=== PATIENT | female | born 1950 | race Caucasian/White ===

== ENCOUNTER 2022-06-07 00:44 | Emergency (ER) | payer MEDICARE, BC, SELFPAY ==
[2022-06-07 00:52] VITALS: BP 161/95; PULSE 90; RESP 16; TEMP 36.5; O2SAT 95
--- NOTE | 2022-06-07 01:22 | CRLHL7_ITS ---
For Patients: As a result of the Century Cures Act, medical imaging exams and procedure reports are released immediately into your electronic medical record. You may view this report before your referring provider. If you have questions, please contact your health care provider. INDICATION: Left lower quadrant pain. TECHNIQUE: CT abdomen and pelvis acquired with 83 cc Isovue 370 IV contrast. COMPARISON: None. FINDINGS: Lower chest: Unremarkable. Liver: Subcentimeter hypodense focus in the right hepatic lobe is too small to accurately characterize but statistically likely a cyst or hemangioma. Gallbladder and bile ducts: Unremarkable. No stones or inflammation. No biliary ductal dilatation. Spleen: Unremarkable. Normal in size. No masses. Adrenal glands: 1.3 cm left adrenal nodule. Right adrenal gland is unremarkable. Pancreas: Unremarkable. No mass or inflammation. Kidneys: Subcentimeter hypodense foci are too small to accurately characterize but statistically likely cysts. No radiopaque stones or hydronephrosis. GI tract: Normal in caliber. Diverticulosis without evidence of diverticulitis. Appendix is not well visualized, however there is no evidence of right lower quadrant inflammatory stranding. Lymph nodes: No lymphadenopathy. Vasculature: Scattered atherosclerotic calcifications. Omentum/Peritoneum/Abdominal Wall: Unremarkable. No sign of mass or infiltration. No free air or significant free fluid. Pelvis: Status post hysterectomy. Bones: Unremarkable for age. IMPRESSION: 1. No acute abdominal or pelvic abnormality. 2. Diverticulosis without evidence of diverticulitis. 3. 1.3 cm left adrenal nodule, indeterminate. Recommend comparison with outside prior studies if available. Otherwise consider further characterization with CT/MRI abdomen adrenal mass protocol on an outpatient basis. Please note that all CT scans at this facility use dose modulation, iterative reconstruction, and/or weight-based dosing when appropriate to reduce radiation dose to as low as reasonably achievable. Dictated by Miki Harp MD @ 06/07/2022 2:53:03 AM (Electronically Signed)
[2022-06-07] MEDS: OXYCODONE 5 MG TABLET 10 MG PO (01:39)
[2022-06-07 01:44] LABS: Basophils Percent Auto 0.3 % (0.0-3.0); Eosinophils Percent Auto 1.7 % (0.0-7.0); Hematocrit 47.4 % (33.0-51.0); Hemoglobin* 15.6 gm/dL (12.0-16.0); Immature Granulocytes Pct Auto 0.3 %; Lymphocytes Percent Auto 24.6 % (20-44); Mean Corpuscular HGB Conc 33 gm/dL (32-36); Mean Corpuscular Hemoglobin 31 pg (26-34); Mean Corpuscular Volume 94 fL (80-100); Monocytes Percent Auto 10.7 % (0.0-11.0); Neutrophils Percent Auto 62.4 % (42.0-72.0); Platelet Count* 254 K/uL (140-440); RDW Coefficient of Variation % 13.6 % (11.5-15.5); Red Blood Count 5.06 m/uL (4.00-5.20); White Blood Count* 11.75 K/uL (4.50-11.00)
[2022-06-07 01:45] LABS: Slide Review Reflex No
[2022-06-07 01:45] LABS: Appearance Urine Clear (Clear); Bilirubin Urine Negative (Negative); Blood Urine 2+ (Negative); Color Urine Yellow (Yellow); Glucose Urine Negative (Negative); Ketones Urine Negative (Negative); Leukocyte Esterase Urine Negative (Negative); Nitrite Urine Negative (Negative); Protein Urine Negative (Negative); Specific Gravity Urine 1.025 (1.000-1.030); Urobilinogen Urine 0.2 (0.2-1.0); pH Urine 5.5 (5.0-8.5)
[2022-06-07 01:57] LABS: Albumin* 4.1 g/dL (3.3-5.0); Chloride* 102 mmol/L (96-114); Sodium* 136 mmol/L (135-149)
[2022-06-07 01:58] LABS: Potassium* 4.1 mmol/L (3.6-5.1)
[2022-06-07 01:59] LABS: INR 2.79 (0.91-1.10); Prothrombin Time 30.7 Seconds
[2022-06-07 02:00] LABS: Aspartate Amino Transferase* 27 U/L (12-35); Bilirubin Total* 0.3 mg/dL (0.1-1.5); Carbon Dioxide* 28 mmol/L (20-32); Creatinine* 0.4 mg/dL (0.5-1.5); Estimated Glomerular Filt Rate 106 ml/min; Total Protein* 7.6 g/dL (6.0-8.3)
[2022-06-07 02:01] LABS: Alanine Aminotransferase* 24 U/L (4-35); Alkaline Phosphatase* 78 U/L (40-150); Blood Urea Nitrogen* 14 mg/dL (7-30); Calcium* 9.3 mg/dL (8.4-10.6); Glucose* 128 mg/dL (60-115)
[2022-06-07 02:03] LABS: Bacteria Urine Few; Squamous Epithelial Cell Urine Few (None-Few); WBC Urine 0-2 (0-5)
[2022-06-07 02:03] LABS: C Reactive Protein* 0.5 mg/dL (0.5-1.0)
--- NOTE | 2022-06-07 02:17 | ED.GENADULT ---
HPI - General Adult General Chief complaint: Abdominal Pain Stated complaint: L hip pain Time Seen by Provider: 06/07/22 01:10 Source: patient and family Mode of arrival: ambulatory Limitations: no limitations History of Present Illness HPI narrative: 71-year-old female presents to the emergency department with family reporting left lateral upper hip pain/left lower quadrant abdominal pain for the past couple of days, worsening tonight, unable to sleep. Last bowel movement was a day and half ago was normal, no blood in her stools. There is no fever, no trauma or injury. Denies a history of similar pain. Reports her last colonoscopy was 2 years ago, few polyps were removed. On specific questioning she confirms that she thinks she was diagnosed with diverticulitis about 3-4 years ago through clinical exam though it does not sound as though his CT scan was performed. This was done through [facility] and I do not have access to those records tonight. There has been no blood in her stools, appetite has been normal. No dysuria or gynecological changes. She is status post hysterectomy. Reports that she last took some Tylenol at about 9:00 p.m. and tried a Salonpas patch yesterday with no significant improvement in symptoms. Pain is dull and achy and constant, not worse with any particular movements or activities. Does not seem associated with food or urination. Past medical history notable for hypertension, COPD, AFib. She continues to smoke, denies any recent alcohol intake or illicit drug use. States that her home medications are Coumadin, atorvastatin, bisoprolol, Symbicort and diltiazem. Surgical history notable for prior oophorectomy of 1 ovary and a hysterectomy. ROS is notable for the generalized in GI symptoms as above, otherwise denies times 12 systems. Related Data Home Medications Medication Instructions Recorded Confirmed albuterol sulfate 90 mcg/actuation 2 puff inhalation Q4H PRN wheezing 06/07/22 06/07/22 aerosol inhaler atorvastatin 40 mg tablet 40 mg PO QPM 06/07/22 06/07/22 atorvastatin 80 mg tablet 80 mg PO QPM 06/07/22 06/07/22 bisoprolol fumarate 5 mg tablet 2.5 mg PO DAILY 06/07/22 06/07/22 budesonide-formoterol HFA 160 2 puff inhalation BID 06/07/22 06/07/22 mcg-4.5 mcg/actuation aerosol inhaler (Symbicort) diltiazem HCl 240 mg 240 mg PO DAILY 06/07/22 06/07/22 capsule,extended release 24 hr warfarin 5 mg tablet mg PO 06/07/22 Previous Rx's Medication Instructions Recorded ciprofloxacin HCl 500 mg tablet 500 mg PO BID #20 tabs 06/07/22 (Cipro) metronidazole 500 mg tablet 500 mg PO Q12H #20 tabs 06/07/22 Allergies Allergy/AdvReac Type Severity Reaction Status Date / Time No Known Drug Allergies Allergy Verified 06/07/22 02:24 Exam Const: Vital Signs, click to edit/add: Vital Signs - 24 hr 06/07/22 00:52 Temperature 97.7 F Pulse Rate [Left P ulse Oximeter] 90 Respiratory Rate 16 Blood Pressure [Ri ght Upper Arm] 161/95 H Pulse Oximetry 95 Oxygen Delivery Me thod Room Air Common normals: no apparent distress Exam limitations: altered mental status General appearance: cooperative and well kempt Other: Good historian except for recall of her medications. Friendly and cooperative. Family smuggled a tiny [employer] Terrier in with them and he is a delight. HENMT: Common normals: normocephalic Head and scalp: normocephalic Face and sinus: normal facial exam Mouth: oral and palatal mucosa normal Throat: posterior oropharynx normal Eye: Common normals: conjunctivae normal General eye: normal appearance of both eyes Conjunctiva: conjunctiva(e) normal Neck & C-Spine: Common normals: full ROM and no lymphadenopathy Resp: Common normals: normal respiratory effort, no use of accessory muscles and clear to auscultation bilaterally Effort & inspection: able to speak in complete sentences Auscultation: clear to auscultation bilaterally Cardio: Common normals: regular rate, regular rhythm, S1 normal heart sound, S2 normal heart sound and no murmurs Rate: regular rate Rhythm: regular rhythm Heart sounds: S1 normal and S2 normal GI: Other: Abdomen mildly tender to palpation of left lower quadrant only. No rebound tenderness or guarding. Seems pretty stoic. Bowel sounds are normoactive, nondistended. Liver and spleen are not enlarged. No obvious mass. Extremity: Common normals: normal to inspection, full ROM (Of left hip. Normal internal and external rotation with no point bony tend) and no pedal edema Neuro: Speech: speech normal Motor exam: strength 5/5 throughout, no tremor noted and no movement abnormalities noted Psych: Appearance: well kempt Attitude: engaged Insight: insight good Judgement: judgment good Skin: Common normals: no rashes or lesions noted General skin exam: no rashes or lesions noted Course Vital Signs Vital signs: Initial Vital Signs Temperature 97.7 F 06/07/22 00:52 Temperature Source Temporal Artery Scan 06/07/22 00:52 Pulse Rate 90 06/07/22 00:52 Pulse Rhythm Regular 06/07/22 00:52 Respiratory Rate 16 06/07/22 00:52 Blood Pressure 161/95 H 06/07/22 00:52 Blood Pressure Mean 117 06/07/22 00:52 Blood Pressure Position Semi-Fowlers 06/07/22 00:52 Pulse Oximetry 95 06/07/22 00:52 Oxygen Delivery Method Room Air 06/07/22 00:52 Vital Signs Temperature 97.7 F 06/07/22 00:52 Pulse Rate 90 06/07/22 00:52 Respiratory Rate 16 06/07/22 00:52 Blood Pressure 161/95 H 06/07/22 00:52 Pulse Oximetry 95 06/07/22 00:52 Oxygen Delivery Method Room Air 06/07/22 00:52 Temperature 97.7 F 06/07/22 00:52 Pulse Rate 90 06/07/22 00:52 Respiratory Rate 16 06/07/22 00:52 Blood Pressure 161/95 H 06/07/22 00:52 Pulse Oximetry 95 06/07/22 00:52 Oxygen Delivery Method Room Air 06/07/22 00:52 Medical Decision Making MDM Narrative Medical decision making narrative: Differential diagnosis includes musculoskeletal etiology, gynecological problem, colitis, more likely diverticulitis. Recommend CT scan of the abdomen and pelvis, urinalysis, basic labs. Oral oxycodone and reassessment. Update: Labs showing mild infection, therapeutic INR. CT does not show any hemorrhage or hematoma does show diverticulosis per my impression I suspect there is some mild diverticulitis as well. No evidence of stones. Cannot exclude appendicitis though this is not well seen. There is some inflammatory stranding on the right which does not fit with clinical correlation in may be more related to the diverticulitis that I am seeing. Findings discussed with patient. She has marked improvement in her pain with the oxycodone. Labs and CT reviewed with her. She is agreeable to starting antibiotics and watchful waiting. Will start ciprofloxacin and metronidazole, 1st dose given in ED. alarm symptoms reviewed that would warrant repeat ED presentation, mainly focusing on risk of perforation. Counseled that both of the antibiotics will raise her INR and INR were needs to be rechecked in a couple of days with likely adjustments in dosing. She verbalizes understanding and agreement. Lab Data Lab results reviewed: Yes I reviewed the patient's lab results Labs: Lab Results 06/07/22 06/07/22 Range/Units 01:30 01:34 WBC 11.75 H (4.50-11.00) K/uL RBC 5.06 (4.00-5.20) m/uL Hgb 15.6 (12.0-16.0) gm/dL Hct 47.4 (33.0-51.0) % MCV 94 (80-100) fL MCH 31 (26-34) pg MCHC 33 (32-36) gm/dL RDW Coeff of Volodymyr 13.6 (11.5-15.5) % Plt Count 254 (140-440) K/uL Neut % (Auto) 62.4 (42.0-72.0) % Lymph % (Auto) 24.6 (20-44) % [place] % (Auto) 10.7 (0.0-11.0) % Eos % (Auto) 1.7 (0.0-7.0) % Baso % (Auto) 0.3 (0.0-3.0) % Neut # (Auto) 7.30 H (1.7-7.0) K/uL Lymph # (Auto) 2.90 (0.90-2.90) K/uL [place] # (Auto) 1.30 H (0.00-0.90) K/UL Eos # (Auto) 0.20 (0.00-0.50) K/uL Baso # (Auto) 0.00 (0.00-0.30) K/uL INR 2.79 H (0.91-1.10) Sodium 136 (135-149) mmol/L Potassium 4.1 (3.6-5.1) mmol/L Chloride 102 (96-114) mmol/L Carbon Dioxide 28 (20-32) mmol/L BUN 14 (7-30) mg/dL Creatinine 0.4 L (0.5-1.5) mg/dL Estimated GFR 106 ml/min Glucose 128 H (60-115) mg/dL Calcium 9.3 (8.4-10.6) mg/dL Total Bilirubin 0.3 (0.1-1.5) mg/dL AST 27 (12-35) U/L ALT 24 (4-35) U/L Alkaline Phosphatase 78 (40-150) U/L C-Reactive Protein 0.5 (0.5-1.0) mg/dL Total Protein 7.6 (6.0-8.3) g/dL Albumin 4.1 (3.3-5.0) g/dL Urine Color Yellow (Yellow) Urine Appearance Clear (Clear) Urine pH 5.5 (5.0-8.5) Ur Specific Reading 1.025 (1.000-1.030) Urine Protein Negative (Negative) Urine Glucose (UA) Negative (Negative) Urine Ketones Negative (Negative) Urine Blood 2+ A (Negative) Urine Nitrite Negative (Negative) Urine Bilirubin Negative (Negative) Urine Urobilinogen 0.2 (0.2-1.0) Ur Leukocyte Esterase Negative (Negative) Urine RBC 10-25 A (0-2) Urine WBC 0-2 (0-5) Ur Squamous Epith Cells Few (None-Few) Urine Bacteria Few A (None) Imaging Data CT scan - pelvis: Attestation: I have reviewed the pertinent imaging results. My impression: Looks actually more like diverticulitis than just diverticulosis to me but subtle. Radiology noting diverticulosis only as below. Radiologist's impression: IMPRESSION: 1. No acute abdominal or pelvic abnormality. 2. Diverticulosis without evidence of diverticulitis. 3. 1.3 cm left adrenal nodule, indeterminate. Recommend comparison with outside prior studies if available. Otherwise consider further characterization with CT/MRI abdomen adrenal mass protocol on an outpatient basis. Discharge Plan Discharge Clinical Impression: Diverticulitis Patient Disposition: Home w/ Parent or Adult Condition: Improved Instructions: Diverticulitis (DC) Additional Instructions: As we discussed, your CT is borderline for diverticulitis. Blood work shows some mild infection and inflammation. There are no other obvious findings, I suspect that this is the etiology. There are no obvious signs of perforation or significant complication with her diverticulitis. We are safe to start some antibiotics and see how things go. Your INR today is 2.7. Both of these antibiotics run a risk of making your INR go up. I would like for you to have your INR recheck on Saturday or Saturday at the latest. I have started you on 2 antibiotics that you will take twice daily each. You may take them at the same time. Do not drink alcohol on these medications. For pain, begin with Tylenol 1000 mg every 6 hours. I have given you a small supply of oxycodone to use if the pain is severe, I am hoping the only need this at night. If your pain is not improving markedly by Saturday, make a follow-up appointment with her primary care provider. As we discussed, if you start having high fevers, severe weakness or symptoms are significantly worse, come back to the emergency department, this may be a sign of perforation. Activity Level: No Restrictions Discharge Diet: Regular Prescriptions: New metronidazole 500 mg tablet 500 mg PO Q12H Qty: 20 0RF ciprofloxacin HCl [Cipro] 500 mg tablet 500 mg PO BID Qty: 20 0RF No Action atorvastatin 40 mg tablet 40 mg PO QPM atorvastatin 80 mg tablet 80 mg PO QPM diltiazem HCl 240 mg capsule,extended release 24hr 240 mg PO DAILY bisoprolol fumarate 5 mg tablet 2.5 mg PO DAILY warfarin 5 mg tablet PO albuterol sulfate 90 mcg/actuation HFA aerosol inhaler 2 puff INHALATION Q4H PRN (Reason: wheezing) budesonide-formoterol [Symbicort] 160-4.5 mcg/actuation HFA aerosol inhaler 2 puff INHALATION BID Follow Up/Referrals: Marry Cobb MD [Primary Care Provider] - Stand Alone Forms: [facility] Info Instructions
[2022-06-07] MEDS: CIPROFLOXACIN 500 MG TABLET PO (03:08)
[2022-06-07] MEDS: metroNIDAZOLE 500 MG TABLET PO (03:08)
[2022-06-07 03:19] VITALS: BP 156/72; PULSE 72; RESP 18; O2SAT 95
== END 2022-06-07 03:21 | disposition home or self-care (01) ==
PROVIDERS: Emergency Provider Family Medicine; PCP Family Medicine
DX: K57.92 Diverticulitis of intestine, part unspecified, without perforation or abscess without bleeding (principal)
CPT/HCPCS: 36415; 74177; 80053; 81003; 81015; 85025; 85610; 86140; 87086; 99283; 99284; A9270; Q9967

== ENCOUNTER 2022-12-19 09:29 | Emergency (ER) | payer MEDICARE, BC, SELFPAY ==
[2022-12-19] VITALS (7 sets, daily range): BP systolic 128–143; BP diastolic 68–81; PULSE 84–98; RESP 22–25; TEMP 36.6; O2SAT 87–91; BMI 29.8
--- NOTE | 2022-12-19 10:09 | CRLHL7_ITS ---
For Patients: As a result of the Century Cures Act, medical imaging exams and procedure reports are released immediately into your electronic medical record. You may view this report before your referring provider. If you have questions, please contact your health care provider. Indication: Cough Technique: Chest 1 view Comparison: Chest x-ray 12/10/2019 Findings/Impression: Cardiovascular and mediastinum: Normal heart size with atherosclerotic calcification. Lungs and pleural space: No pleural effusion or pneumothorax. No focal consolidation. Bilateral bronchial wall thickening which can be seen in bronchitis or reactive airways disease. Bones and soft tissues: No acute findings. Dictated by Crow Kaplan MD @ 12/19/2022 10:42:23 AM (Electronically Signed)
--- NOTE | 2022-12-19 10:13 | ED.GENADULT ---
HPI - General Adult General Time Seen by Provider: 10:13 Date Seen: 12/19/22 Chief complaint: Shortness of Breath/Dyspnea Stated complaint: hard to breathe Time Seen by Provider: 12/19/22 10:00 Source: patient Mode of arrival: ambulatory Limitations: no limitations History of Present Illness HPI narrative: Patient is a 72-year-old female with COPD, who has not been able to get her Symbicort inhaler for the last month. She feels like over the last few days she has gotten worse with her breathing. She does not have home oxygen, she does use albuterol inhaler at home. She has not had any chest pain. She has not had any leg swelling or edema. She does take Coumadin as she had atrial fibrillation in the past with hospitalization. No leg swelling or edema. She has had a slight productive cough. O2 sat on presentation 89-90%. On room air. Related Data Home Medications Medication Instructions Recorded Confirmed albuterol sulfate 90 mcg/actuation 2 puff inhalation Q4H PRN wheezing 06/07/22 12/19/22 aerosol inhaler atorvastatin 40 mg tablet 40 mg PO QPM 06/07/22 12/19/22 atorvastatin 80 mg tablet 80 mg PO QPM 06/07/22 12/19/22 bisoprolol fumarate 5 mg tablet 2.5 mg PO DAILY 06/07/22 06/07/22 budesonide-formoterol HFA 160 2 puff inhalation BID 06/07/22 12/19/22 mcg-4.5 mcg/actuation aerosol inhaler (Symbicort) diltiazem HCl 240 mg 240 mg PO DAILY 06/07/22 12/19/22 capsule,extended release 24 hr warfarin 5 mg tablet mg PO 06/07/22 Previous Rx's Medication Instructions Recorded ciprofloxacin HCl 500 mg tablet 500 mg PO BID #20 tabs 06/07/22 (Cipro) metronidazole 500 mg tablet 500 mg PO Q12H #20 tabs 06/07/22 doxycycline hyclate 100 mg capsule 100 mg PO BID 7 days #14 caps 12/19/22 prednisone 20 mg tablet 20 mg PO BID #10 tabs 12/19/22 Allergies Allergy/AdvReac Type Severity Reaction Status Date / Time No Known Drug Allergies Allergy Verified 06/07/22 02:24 Review of Systems Status of ROS: Reports: 10 or more systems reviewed and unremarkable except as noted in History and below [facility] Social History Smoking Status: Current every day smoker What tobacco products do you use: cigarettes Smoking packs per day: 1 Smoking cigarettes per day: 20.0 Years smoked: 60 Smoking pack-years: 60.00 Do you use any of these nicotine containing products: None Second hand tobacco smoke exposure: Yes How often do you have a drink containing alcohol: monthly or less How many standard drinks containing alcohol do you have on a typical day: 1 or 2 How often do you have six or more drinks on one occasion: Never AUDIT-C Alcohol total score: 1 Non-prescribed substance use: denies use service: No Exam Narrative: Exam Narrative: Objective: Patient's O2 sat is 87% on presentation up to 90% on a regular basis when interviewed Afebrile Other vital signs are within normal limits Alert orient x3, noncyanotic HEENT is unremarkable Neck is supple Chest wheezes at the bases bilaterally and diminished air exchange. No rales noted Heart rhythm regular 2/6 systolic murmur occasional ectopic beat noted Extremities are no edema neurologic nonfocal , no peripheral edema Const: Vital Signs, click to edit/add: Vital Signs - 24 hr 12/19/22 09:48 12/19/22 10:08 12/19/22 10:30 Temperature 97.8 F Pulse Rate [Right Pulse Oximeter] 84 84 Respiratory Rate 22 22 Blood Pressure [Ri ght Upper Arm] 138/74 128/70 Pulse Oximetry 87 L 90 90 Oxygen Delivery Me thod Room Air Room Air 12/19/22 11:00 12/19/22 11:30 12/19/22 12:00 Temperature Pulse Rate [Right Pulse Oximeter] 86 87 98 Respiratory Rate 24 25 H 24 Blood Pressure [Ri ght Upper Arm] 134/74 129/68 143/81 H Pulse Oximetry 91 91 87 L Oxygen Delivery Me thod Room Air Room Air Room Air 12/19/22 12:30 Temperature Pulse Rate [Right Pulse Oximeter] 92 Respiratory Rate 24 Blood Pressure [Ri ght Upper Arm] 137/76 Pulse Oximetry 88 Oxygen Delivery Me thod Room Air Course Vital Signs Vital signs: Initial Vital Signs Temperature 97.8 F 12/19/22 09:48 Temperature Source Temporal Artery Scan 12/19/22 09:48 Pulse Rate 84 12/19/22 09:48 Respiratory Rate 22 12/19/22 09:48 Blood Pressure 138/74 12/19/22 09:48 Blood Pressure Mean 95 12/19/22 09:48 Blood Pressure Position Sitting 12/19/22 09:48 Pulse Oximetry 87 L 12/19/22 09:48 Oxygen Delivery Method Room Air 12/19/22 09:48 Vital Signs Temperature 97.8 F 12/19/22 09:48 Pulse Rate 84 12/19/22 09:48 Respiratory Rate 22 12/19/22 09:48 Blood Pressure 138/74 12/19/22 09:48 Pulse Oximetry 87 L 12/19/22 09:48 Oxygen Delivery Method Room Air 12/19/22 09:48 Temperature 97.8 F 12/19/22 09:48 Pulse Rate 92 12/19/22 12:30 Respiratory Rate 24 12/19/22 12:30 Blood Pressure 137/76 12/19/22 12:30 Pulse Oximetry 88 12/19/22 12:30 Oxygen Delivery Method Room Air 12/19/22 12:30 Medical Decision Making MDM Narrative Medical decision making narrative: 72-year-old female with COPD has been out of her Symbicort for a about a month and has gotten worse over the last couple of days with slight cough breathing difficulty. She has no history of cardiac issues other than AFib. Will check EKG, point of care troponin, will get a chest x-ray, rule out COPD exacerbation. Patient will be given a DuoNeb, and IV Solu-Medrol and doxycycline. Will likely continue steroids and doxycycline at home, will see observe her in the ER per period of time make sure her O2 sat is adequate. She does not at this time have a home O2 sat monitor. Addendum 12:22 p.m. the patient continued on O2 sats between 89 and 91%, she feels better after nebulizer. She got steroids, antibiotic. I think it is reasonable to lower to go home and see how she does. I would recommend she continue her albuterol inhaler, I would prescribe prednisone for her that she can start today as well as doxycycline. She should follow up with regular doctor next 2-3 days for reassessment certainly sooner changes or concerns. She should be off work until she sees her regular physician. Lab Data Labs: Lab Results 12/19/22 12/19/22 Range/Units 10:30 10:40 WBC 9.58 (4.50-11.00) K/uL RBC 4.78 (4.00-5.20) m/uL Hgb 14.4 (12.0-16.0) gm/dL Hct 44.7 (33.0-51.0) % MCV 94 (80-100) fL MCH 30 (26-34) pg MCHC 32 (32-36) gm/dL RDW Coeff of Volodymyr 14.5 (11.5-15.5) % Plt Count 214 (140-440) K/uL Neut % (Auto) 70.8 (42.0-72.0) % Lymph % (Auto) 11.2 L (20-44) % [place] % (Auto) 16.4 H (0.0-11.0) % Eos % (Auto) 1.1 (0.0-7.0) % Baso % (Auto) 0.3 (0.0-3.0) % Neut # (Auto) 6.78 (1.7-7.0) K/uL Lymph # (Auto) 1.10 (0.90-2.90) K/uL [place] # (Auto) 1.60 H (0.00-0.90) K/UL Eos # (Auto) 0.11 (0.00-0.50) K/uL Baso # (Auto) 0.03 (0.00-0.30) K/uL Abs Immat Gran (auto) 0.02 (0.00-0.30) K/uL Imm/Tot Granulo (auto) 0.2 % VBG pH 7.415 (7.32-7.43) VBG pCO2 46 (40-50) mmHG VBG pO2 95.9 H (25-47) mmHG VBG HCO3 29 H (21-28) mmol/L Sodium 133 L (135-149) mmol/L Potassium 4.3 (3.6-5.1) mmol/L Chloride 100 (96-114) mmol/L Carbon Dioxide 28 (20-32) mmol/L Anion Gap 5 L (7-15) mEq/L BUN 11 (7-30) mg/dL Creatinine 0.4 L (0.5-1.5) mg/dL Estimated Creat Clear 42.07 Estimated GFR 105 ml/min Glucose 108 (60-115) mg/dL Lactate 0.9 (0.5-1.9) mmol/L Calcium 8.8 (8.4-10.6) mg/dL Total Bilirubin 0.6 (0.1-1.5) mg/dL Direct Bilirubin 0.0 (0.0-0.5) mg/dL AST 26 (12-35) U/L ALT 17 (4-35) U/L Alkaline Phosphatase 76 (40-150) U/L C-Reactive Protein 5.7 H (0.5-1.0) mg/dL NT-Pro-B Natriuret Pep 1190 pg/mL Total Protein 6.9 (6.0-8.3) g/dL Albumin 3.7 (3.3-5.0) g/dL SARS-CoV-2 (PCR) Negative SARS-CoV-2 (Negative) Influenza Type A (PCR) Negative PCR FLU A (Negative) Influenza Type B (PCR) Negative PCR FLU B (Negative) RSV (PCR) Negative PCR RSV (Negative) POC Troponin I 0.01 (0.01-0.04) ng/ml Discharge Plan Discharge Clinical Impression: Asthma with acute exacerbation Patient Disposition: Home w/ Parent or Adult Condition: Improved Additional Instructions: Rest, fluids, off work until you see your regular doctor in 3-5 days. Antibiotic and steroids to start today. Return if problems or concerns or worsening. Recommend to get a home oximeter as well and return if you are running below 88%. Activity Level: Light activity Discharge Diet: Regular Prescriptions: New prednisone 20 mg tablet 20 mg PO BID Qty: 10 0RF doxycycline hyclate 100 mg capsule 100 mg PO BID 7 Days Qty: 14 0RF No Action atorvastatin 40 mg tablet 40 mg PO QPM atorvastatin 80 mg tablet 80 mg PO QPM diltiazem HCl 240 mg capsule,extended release 24hr 240 mg PO DAILY bisoprolol fumarate 5 mg tablet 2.5 mg PO DAILY warfarin 5 mg tablet PO albuterol sulfate 90 mcg/actuation HFA aerosol inhaler 2 puff INHALATION Q4H PRN (Reason: wheezing) budesonide-formoterol [Symbicort] 160-4.5 mcg/actuation HFA aerosol inhaler 2 puff INHALATION BID metronidazole 500 mg tablet 500 mg PO Q12H Qty: 20 0RF ciprofloxacin HCl [Cipro] 500 mg tablet 500 mg PO BID Qty: 20 0RF Follow Up/Referrals: Marry Cobb MD [Primary Care Provider] - Stand Alone Forms: [employer] Info Instructions
[2022-12-19] MEDS: DOXYCYCLINE HYCLATE 100 MG PO (10:33)
[2022-12-19] MEDS: IPRAT-ALBUT 0.5-2.5 MG/3 ML NEB 1 NEB IH (10:34)
[2022-12-19] MEDS: 0.9 % SODIUM CHLORIDE 500 ML 500 ML IV (10:41)
[2022-12-19] MEDS: METHYLPREDNISOLONE SOD SUCC 62.5 MG/ML (125) 125 MG IVP (10:45)
[2022-12-19 11:00] LABS: Basophils Absolute Auto 0.03 K/uL (0.00-0.30); Basophils Percent Auto 0.3 % (0.0-3.0); Eosinophils Absolute Auto 0.11 K/uL (0.00-0.50); Eosinophils Percent Auto 1.1 % (0.0-7.0); Hematocrit 44.7 % (33.0-51.0); Hemoglobin* 14.4 gm/dL (12.0-16.0); Immature Granulocytes Abs Auto 0.02 K/uL (0.00-0.30); Immature Granulocytes Pct Auto 0.2 %; Lymphocytes Percent Auto 11.2 % (20-44); Mean Corpuscular HGB Conc 32 gm/dL (32-36); Mean Corpuscular Hemoglobin 30 pg (26-34); Mean Corpuscular Volume 94 fL (80-100); Monocytes Percent Auto 16.4 % (0.0-11.0); Neutrophils Absolute Auto 6.78 K/uL (1.7-7.0); Neutrophils Percent Auto 70.8 % (42.0-72.0); Platelet Count* 214 K/uL (140-440); RDW Coefficient of Variation % 14.5 % (11.5-15.5); Red Blood Count 4.78 m/uL (4.00-5.20); White Blood Count* 9.58 K/uL (4.50-11.00)
[2022-12-19 11:04] LABS: HCO3 VBG 29 mmol/L (21-28); Lactate* 0.9 mmol/L (0.5-1.9); PCO2 VBG 46 mmHG (40-50); PO2 VBG 95.9 mmHG (25-47); pH VBG 7.415 (7.32-7.43)
[2022-12-19 11:12] LABS: Troponin, Point-of-Care* 0.01 ng/ml (0.01-0.04)
[2022-12-19 11:15] LABS: Slide Review Reflex No
[2022-12-19 11:16] LABS: Albumin* 3.7 g/dL (3.3-5.0); Chloride* 100 mmol/L (96-114)
[2022-12-19 11:17] LABS: Potassium* 4.3 mmol/L (3.6-5.1); Sodium* 133 mmol/L (135-149)
[2022-12-19 11:19] LABS: Alanine Aminotransferase* 17 U/L (4-35); Alkaline Phosphatase* 76 U/L (40-150); Aspartate Amino Transferase* 26 U/L (12-35); Bilirubin Total* 0.6 mg/dL (0.1-1.5); Creatinine* 0.4 mg/dL (0.5-1.5); Est. Creatinine Clearance* 42.07; Estimated Glomerular Filt Rate 105 ml/min; Total Protein* 6.9 g/dL (6.0-8.3)
[2022-12-19 11:20] LABS: Anion Gap 5 mEq/L (7-15); Blood Urea Nitrogen* 11 mg/dL (7-30); Carbon Dioxide* 28 mmol/L (20-32); Glucose* 108 mg/dL (60-115)
[2022-12-19 11:21] LABS: Calcium* 8.8 mg/dL (8.4-10.6)
[2022-12-19 11:23] LABS: C Reactive Protein* 5.7 mg/dL (0.5-1.0)
[2022-12-19 11:26] LABS: PCR FLU A Negative PCR FLU A (Negative); PCR FLU B Negative PCR FLU B (Negative); PCR RSV Negative PCR RSV (Negative)
[2022-12-19 11:28] LABS: NT Pro B Type NatriureticPept* 1190 pg/mL
[2022-12-19 11:30] LABS: SARS PCR* Negative SARS-CoV-2 (Negative)
== END 2022-12-19 12:36 | disposition home or self-care (01) ==
PROVIDERS: Emergency Provider Family Medicine; PCP Family Medicine
DX: J45.901 Unspecified asthma with (acute) exacerbation (principal)
CPT/HCPCS: 36415; 71045; 80048; 80076; 82803; 83605; 83880; 84484; 85025; 86140; 87631; 93005; 94640; 94761; 96374; 99284; 99285; A9270; J2930; J7120

== ENCOUNTER 2023-01-04 10:11 | Inpatient (IN) | payer MEDICARE, BC, SELFPAY ==
[2023-01-04] VITALS (51 sets, daily range): BP systolic 88–148; BP diastolic 58–93; PULSE 84–176; RESP 20–40; TEMP 36.5–36.7; O2SAT 86–94; BMI 30.1; BMI 31.4
--- NOTE | 2023-01-04 10:24 | ED.NURSE ---
Pt arrives satting at 86% on room air, feeling SOB. Pt placed on 2L O2 NC. O2 sats up to 93%, titrated down to 1L O2 NC.
--- NOTE | 2023-01-04 10:32 | ED_ITS ---
HPI - Arrhythmia/Palpitations General Time Seen by Provider: 10:32 Date Seen: 01/04/23 Chief Complaint: Arrhythmia/Palpitations Stated Complaint: Rapid heartrate Time Seen by Provider: 01/04/23 10:32 Source: patient and RN notes reviewed Mode of arrival: ambulatory Limitations: no limitations History of Present Illness HPI narrative: This 72-year-old female is referred from clinic with atrial fibrillation with RVR. Patient had a follow-up clinic appointment today, has noted increased shortness of breath and difficulty sleeping at night. Last night she states she really could not get comfortable or rest, were short of breath through the night. She notes that that has been a problem for the last 2 nights. Normally she has no lower extremity edema and has had a little bit recently. In clinic she was found to be in atrial fibrillation with RVR, EKG showing a rate of 165 beats per minute. She states she cannot feel this, does have a history of atrial fibrillation, is anticoagulated with Coumadin. She could not feel it when she was in it prior per report. I do not know if she has paroxysm Ali in atrial fibrillation or if it is chronic for her. She states she has been having problems with her COPD, they are working to get her home oxygen. Her relative that is with her, I presume possibly sister, states that her oxygen has been in the 80s at times, as low as 70s. She was 86% on arrival here. Looking in recent records, patient was here on 12/19/2022 with COPD/asthma exacerbation, did receive prednisone doxycycline. She had been out of her Symbicort for a month. She did have some mild hypoxia during that time. She still does not have home O2 at this time but they are working on it per report. She is having no chest pain, is not syncopal at all. She last ate last night. Have reviewed with her that some of her blood pressures since arrival have been lower in the systolic of 80s but as long as she is resting, seems to be asymptomatic. complaint: atrial fibrillation Arrhythmia history: on anti-coagulants Related Data Home Medications Medication Instructions Recorded Confirmed albuterol sulfate 90 mcg/actuation 2 puff inhalation Q4H PRN wheezing 06/07/22 01/04/23 aerosol inhaler atorvastatin 80 mg tablet 80 mg PO HS 06/07/22 01/04/23 bisoprolol fumarate 5 mg tablet 2.5 mg PO DAILY 06/07/22 01/04/23 diltiazem HCl 240 mg 240 mg PO DAILY 06/07/22 01/04/23 capsule,extended release 24 hr warfarin 5 mg tablet 5 mg PO .MO,TH 06/07/22 01/04/23 budesonide 1 mg/2 mL suspension 1 mg inhalation BID 01/04/23 01/04/23 for nebulization fluticasone 250 mcg-salmeterol 50 1 ea inhalation Q12H 01/04/23 01/04/23 mcg/dose blistr powdr for inhalation (Advair Diskus) gabapentin 300 mg capsule 300 mg PO 3XD 01/04/23 01/04/23 ipratropium 0.5 mg-albuterol 3 mg 3 ml inhalation QID 01/04/23 01/04/23 (2.5 mg base)/3 mL nebulization soln warfarin 2.5 mg tablet 2.5 mg PO .VERA,TU,WE,FR,SA 01/04/23 01/04/23 Allergies Allergy/AdvReac Type Severity Reaction Status Date / Time No Known Drug Allergies Allergy Verified 06/07/22 02:24 Review of Systems Status of ROS: Reports: 6 or more systems reviewed and unremarkable except as noted in History and below [facility] Medical History (Updated 01/04/23 @ 13:15 by Alejandrina Stewart MD) Daily consumption of alcohol ?Z78.9 - Other specified health status (ICD-10) Smokes tobacco daily ?F17.200 - Nicotine dependence, unspecified, uncomplicated (ICD-10) History of subarachnoid hemorrhage ?Z86.79 - Personal history of other diseases of the circulatory system (ICD- 10) Hypertension ?I10 - Essential (primary) hypertension (ICD-10) Surgical History (Updated 01/04/23 @ 13:15 by Alejandrina Stewart MD) History of total abdominal hysterectomy ?Z90.710 - Acquired absence of both cervix and uterus (ICD-10) S/P coil embolization of cerebral aneurysm ?Z98.890 - Other specified postprocedural states (ICD-10) Social History What is your current living situation?: I presently have a place to live Problems where you live: no known problems Problems where you live details: None In the past 12 months, utilities in danger of being shut off: no In past 12 months, lack of transportation kept you from medical appts, meetings, work, or getting things needed for daily living: no In the past 12 mos, have been you worried that your food would run out before you had money to buy more?: never true In the past 12 mos, the food you bought just didn't last and you didn't have money to buy more?: never true Highest level of school completed/degree received: some college, no degree Smoking Status: Current every day smoker What tobacco products do you use: cigarettes Smoking packs per day: 1 Smoking cigarettes per day: 20.0 Years smoked: 60 Smoking pack-years: 60.00 Do you use any of these nicotine containing products: None Second hand tobacco smoke exposure: Yes How often do you have a drink containing alcohol: never How many standard drinks containing alcohol do you have on a typical day: 1 or 2 How often do you have six or more drinks on one occasion: Never AUDIT-C Alcohol total score: 0 Non-prescribed substance use: denies use Caffeine: Yes (Coffee) How often does anyone, including family, friends and others, physically hurt you : never How often does anyone, including family, friends and others, insult or talk down to you: never How often does anyone, including family, friends and others, threaten you with harm: never How often does anyone, including family, friends and others, scream or curse at you: never service: No Exam Const: Vital Signs, click to edit/add: Vital Signs - 24 hr 01/04/23 10:16 01/04/23 10:23 01/04/23 10:24 Temperature 97.7 F Pulse Rate 144 H 146 H Pulse Rate [Pulse Oximeter] 156 H Respiratory Rate 40 H Blood Pressure 94/77 Blood Pressure [Le ft Upper Arm] 94/81 Pulse Oximetry 86 L 91 89 Oxygen Delivery Me thod Room Air Nasal Cannula Nasal Cannula Oxygen Flow Rate 1 1 01/04/23 10:30 01/04/23 10:32 01/04/23 10:36 Temperature Pulse Rate 136 H 143 H 146 H Pulse Rate [Pulse Oximeter] Respiratory Rate Blood Pressure 88/65 L 98/74 Blood Pressure [Le ft Upper Arm] Pulse Oximetry 91 91 91 Oxygen Delivery Me thod Nasal Cannula Nasal Cannula Nasal Cannula Oxygen Flow Rate 1 1 1 01/04/23 10:42 01/04/23 10:45 01/04/23 10:51 Temperature Pulse Rate 141 H 162 H Pulse Rate [Pulse Oximeter] Respiratory Rate Blood Pressure 97/77 Blood Pressure [Le ft Upper Arm] Pulse Oximetry 92 92 92 Oxygen Delivery Me thod Nasal Cannula Nasal Cannula Oxygen Flow Rate 1 1 01/04/23 10:51 01/04/23 10:51 01/04/23 11:00 Temperature Pulse Rate 154 H 153 H Pulse Rate [Pulse Oximeter] Respiratory Rate Blood Pressure 117/75 Blood Pressure [Le ft Upper Arm] Pulse Oximetry 92 92 90 Oxygen Delivery Me thod Nasal Cannula Nasal Cannula Nasal Cannula Oxygen Flow Rate 1 1 1 01/04/23 11:01 01/04/23 11:11 01/04/23 11:15 Temperature Pulse Rate 158 H 134 H 164 H Pulse Rate [Pulse Oximeter] Respiratory Rate Blood Pressure 107/64 95/77 Blood Pressure [Le ft Upper Arm] Pulse Oximetry 91 93 92 Oxygen Delivery Me thod Nasal Cannula Nasal Cannula Nasal Cannula Oxygen Flow Rate 1 1 1 01/04/23 11:21 01/04/23 11:30 01/04/23 11:31 Temperature Pulse Rate 141 H 137 H 147 H Pulse Rate [Pulse Oximeter] Respiratory Rate Blood Pressure 89/74 L 103/85 Blood Pressure [Le ft Upper Arm] Pulse Oximetry 92 92 93 Oxygen Delivery Me thod Nasal Cannula Nasal Cannula Nasal Cannula Oxygen Flow Rate 1 1 1 01/04/23 11:36 01/04/23 11:42 01/04/23 11:45 Temperature Pulse Rate 176 H 144 H 152 H Pulse Rate [Pulse Oximeter] Respiratory Rate Blood Pressure 102/83 Blood Pressure [Le ft Upper Arm] Pulse Oximetry 92 94 Oxygen Delivery Me thod Nasal Cannula Nasal Cannula Oxygen Flow Rate 1 1 01/04/23 11:52 01/04/23 12:01 01/04/23 12:12 Temperature Pulse Rate 152 H 147 H Pulse Rate [Pulse Oximeter] Respiratory Rate Blood Pressure 108/83 100/79 Blood Pressure [Le ft Upper Arm] Pulse Oximetry 87 L 92 Oxygen Delivery Me thod Nasal Cannula Nasal Cannula Nasal Cannula Oxygen Flow Rate 1 1 1 11/10/23 12:15 Temperature Pulse Rate 147 H Pulse Rate [Pulse Oximeter] Respiratory Rate Blood Pressure Blood Pressure [Le ft Upper Arm] Pulse Oximetry 92 Oxygen Delivery Me thod Nasal Cannula Oxygen Flow Rate 1 Patient is alert, interactive, no parents stress. Face is atraumatic, sclera clear. Able to speak in complete sentences. She is 90-91% on 1 L nasal cannula oxygen at this time. Neck is supple, no cervical adenopathy, no thyromegaly masses or nodules. Do not appreciate any jugular venous distension. Patient is able to sit up, lungs with distant breath sounds but no wheezing or crackles noted. Heart sounds are distant, fast and irregular, do not appreciate any murmur at this time. Abdomen is soft, no rebound or guarding, no organomegaly. She has trace to 1+ pretibial edema that is symmetric, no overlying erythema or skin changes noted. Documenting provider has reviewed patient's vital signs: yes Course Course ED Course: Patient has atrial fibrillation with RVR, relative hypotension, underlying hypoxia which presumably could be multifactorial with COPD/lung disease as well as AFib with RVR. Will get portable chest x-ray just to ensure no significant CHF, lung sounds are currently distant. Full complement of labs forthcoming including troponin. Will initiate a L of IV fluids. May need to consider cardioversion in this patient, despite current vitals she is seemingly feeling okay, this assures me we have a bit more time to evaluate her. Will likely be talking to Cardiology, may need to consider medication management of her atrial fibrillation. Would like to find out a bit more history about her cardiac history including previous echo, whether not she has had significant atrial fibrillation in the past, what has been done. She does not believe she has been cardioverted before. INR also pending to ensure that she is therapeutic. Reevaluation(s) Time of Reevaluation #1: 10:54 Reevaluation #1: Patient reportedly feels fine. Has seen cardiology at [email or web address] before. Thus, will page [facility] with this patient. She is asymptomatic but relative hypotension with AFib with RVR. She does have underlying COPD with hypoxia. We are waiting her labs, portable chest x-ray. I would like to talk to them about potential medication management verses consideration of cardioversion. Consultations Consultation #1: Spoke with cardiology on-call Dr. Rhodes from [facility]. He was able to see that her INR was therapeutic a week ago. He agree he has that cardioversion is not going to be likely but if we get into critical scenario, we certainly should proceed with ACLS algorithm spot. At this time I reassured him the patient is feeling fine. He would have us do digoxin loading. If able, can do IV diltiazem drip, he would not load her at this point. She baseline is on 240 mg of diltiazem. He would avoid beta-blockers given her pulmonary process, he agrees that we need to proceed with treating the pulmonary processes it is likely driving her atrial fibrillation. Reviewed with him that my plan was to proceed with chest CT after my initial review of her chest x-ray which certainly could have some congestive changes but I do wonder if there could be underlying infiltrate on the right side. She is maintaining on her oxygen with supplemental nasal cannula oxygen. May need to give some Lasix. We did discuss amiodarone, this may drop her blood pressure is well. He would favor diltiazem over amiodarone at this point. We will start with the digoxin, see if we can work on bringing her rate control down, gets the chest CT noncontrast, patient is updated on all of this after I have spoke with the appliance service supervisor. She is still feeling fine. Time: 11:09 Consultation #2: Reviewed with hospitalist Dr. Stewart. She is aware that the CT over-read is pending but on my brief evaluation I do see bilateral pleural effusions, there might be some infiltrate or fluid in the lower lungs, predominantly right when I look at this, need to await Radiology over-read. Do think with the pleural effusions that there certainly is a component of congestive heart failure, will be giving 20 mg IV Lasix. Did add on a procalcitonin and an echo for Dr. Stewart. She does accept this patient, does not believe she needs to be unit at this point. Time: 12:08 Vital Signs Vital signs: Initial Vital Signs Temperature 97.7 F 01/04/23 10:16 Temperature Source Temporal Artery Scan 01/04/23 10:16 Pulse Rate 156 H 01/04/23 10:16 Pulse Rhythm Irregular 01/04/23 10:16 Respiratory Rate 40 H 01/04/23 10:16 Blood Pressure 94/81 01/04/23 10:16 Blood Pressure Mean 85 01/04/23 10:16 Blood Pressure Position Supine 01/04/23 10:16 Pulse Oximetry 86 L 01/04/23 10:16 Oxygen Delivery Method Room Air 01/04/23 10:16 Vital Signs Temperature 97.7 F 01/04/23 10:16 Pulse Rate 156 H 01/04/23 10:16 Respiratory Rate 40 H 01/04/23 10:16 Blood Pressure 94/81 01/04/23 10:16 Pulse Oximetry 86 L 01/04/23 10:16 Oxygen Delivery Method Room Air 01/04/23 10:16 Temperature 98.1 F 01/04/23 12:50 Pulse Rate 147 H 01/04/23 12:50 Respiratory Rate 24 01/04/23 12:56 Blood Pressure 148/91 H 01/04/23 12:50 Pulse Oximetry 91 01/04/23 12:56 Oxygen Delivery Method Nasal Cannula 01/04/23 12:56 Oxygen Flow Rate 1 01/04/23 12:56 Medications Administered Medications: Discontinued Medications Generic Name Dose Route Start Last Admin Trade Name Freq PRN Reason Stop Dose Admin Digoxin 500 mcg 01/04/23 11:19 01/04/23 11:36 Digoxin 250 Mcg/Ml Inj IV 01/04/23 11:20 500 mcg ONCE ONE Administration Furosemide 20 mg 01/04/23 12:05 01/04/23 12:39 Furosemide 10 Mg/Ml Inj IVP 01/04/23 12:06 20 mg ONCE ONE Administration Sodium Chloride 1,000 mls @ 1,000 mls/hr 01/04/23 10:39 01/04/23 10:35 0.9 % Sodium Chloride 1000 Ml IV 01/04/23 11:38 1,000 mls/hr .Q1H MESHA Administration MDM - Arrhythmia/Palpitations Lab Data Attestation: I reviewed the patient's lab results. Labs: Lab Results 01/04/23 01/04/23 01/04/23 Range/Units 10:29 10:30 12:05 WBC 13.98 H (4.50-11.00) K/uL RBC 4.58 (4.00-5.20) m/uL Hgb 13.8 (12.0-16.0) gm/dL Hct 42.8 (33.0-51.0) % MCV 93 (80-100) fL MCH 30 (26-34) pg MCHC 32 (32-36) gm/dL RDW Coeff of Volodymyr 14.5 (11.5-15.5) % Plt Count 278 (140-440) K/uL Neut % (Auto) 76.9 H (42.0-72.0) % Lymph % (Auto) 10.5 L (20-44) % [place] % (Auto) 12.0 H (0.0-11.0) % Eos % (Auto) 0.3 (0.0-7.0) % Baso % (Auto) 0.2 (0.0-3.0) % Neut # (Auto) 10.80 H (1.7-7.0) K/uL Lymph # (Auto) 1.50 (0.90-2.90) K/uL [place] # (Auto) 1.70 H (0.00-0.90) K/UL Eos # (Auto) 0.00 (0.00-0.50) K/uL Baso # (Auto) 0.00 (0.00-0.30) K/uL Abs Immat Gran (auto) 0.00 (0.00-0.30) K/uL Imm/Tot Granulo (auto) 0.1 % INR 2.89 H (0.91-1.10) VBG pH 7.421 (7.32-7.43) VBG pCO2 40 (40-50) mmHG VBG pO2 53.7 H (25-47) mmHG VBG HCO3 26 (21-28) mmol/L Sodium 136 (135-149) mmol/L Potassium 4.4 (3.6-5.1) mmol/L Chloride 104 (96-114) mmol/L Carbon Dioxide 23 (20-32) mmol/L Anion Gap 9 (7-15) mEq/L BUN 18 (7-30) mg/dL Creatinine 0.5 (0.5-1.5) mg/dL Estimated Creat Clear 42.07 Estimated GFR 100 ml/min Glucose 147 H (60-115) mg/dL Lactate 1.5 (0.5-1.9) mmol/L Calcium 8.9 (8.4-10.6) mg/dL Magnesium 1.7 (1.5-2.6) mg/dL Total Bilirubin 0.8 (0.1-1.5) mg/dL AST 38 H (12-35) U/L ALT 28 (4-35) U/L Alkaline Phosphatase 74 (40-150) U/L Troponin I < 0.01 L (0.01-0.04) ng/mL C-Reactive Protein 5.0 H (0.5-1.0) mg/dL NT-Pro-B Natriuret Pep 5330 pg/mL Total Protein 7.1 (6.0-8.3) g/dL Albumin 3.6 (3.3-5.0) g/dL Procalcitonin 0.06 (<0.50) ng/mL SARS-CoV-2 (PCR) Negative SARS-CoV-2 (Negative) Influenza Type A (PCR) Negative PCR FLU A (Negative) Influenza Type B (PCR) Negative PCR FLU B (Negative) RSV (PCR) Negative PCR RSV (Negative) Lab Acknowledgement Test Added Imaging Data Chest x-ray: Attestation: I have reviewed the pertinent imaging results. Radiologist's impression: Patient: MIRITRAE MARTINEZBERG Facility:?[facility] Patient ID:?[id number] Site Patient ID:?[id number] Site :?[id number] Study:?XRay Chest PCXR-01/04/2023 11:07:55 AM Ordering Physician:Javier Saez Final Report: INDICATION: sob, afib w/ rvr, copd. TECHNIQUE: Chest 1 view. COMPARISON: None. FINDINGS: Cardiovascular and mediastinum: Cardiomediastinal silhouette is within normal limits. Calcific atherosclerosis of the aorta. Lungs and pleural spaces: bibasilar airspace opacities. Perihilar interstitial opacities. Small bilateral pleural effusions. No pneumothorax identified. Bones and soft tissues: Unremarkable for age. IMPRESSION: Bibasilar opacities may reflect aspiration, infection or atelectasis. Small bilateral pleural effusions. Bilateral airspace opacities may reflect edema, or viral infection. Dictated by Ibeth Doll MD @ 01/04/2023 12:15:18 PM (Electronic Signature) CT scan - chest: Attestation: I have reviewed the pertinent imaging results. Radiologist's impression: Patient: FABIAN CHERY Facility:?[facility] Patient ID:?[id number] Site Patient ID:?[id number] Site :?[id number] Study:?CT Chest w/o-01/04/2023 12:00:48 PM Ordering Physician:Javier Saez Final Report: INDICATION: Chronic obstructive pulmonary disease, atrial fibrillation and shortness of breath. TECHNIQUE: Axial images were obtained from the thoracic inlet to the diaphragm. Reformats: Coronal and sagittal IV Contrast: None COMPARISON: Chest CT 12/10/2019 FINDINGS: Mediastinum: Thoracic aorta is normal in caliber with atherosclerotic calcification. Dilation of the main pulmonary artery centrally. Pretracheal lymph nodes measure up to 11 millimeters in short axis. High right paratracheal lymph nodes measure 10 millimeters and AP window lymph nodes measure up to 14 millimeters. Calcified right hilar lymph node. Lungs and Pleural Space: Small bilateral pleural effusions within the dependent portion of the hemithoraces. Centrilobular emphysema. Bronchial wall thickening with some interlobular septal thickening in the lung bases. Chest wall: No masses. Upper abdomen: Normal. Bones: Unremarkable for age. IMPRESSION: 1. Small bilateral pleural effusions with interlobular septal thickening in the lung bases consistent with pulmonary edema. 2. Underlying moderate centrilobular emphysema. 3. Mediastinal lymphadenopathy, similar to the prior examination. Please note that all CT scans at this facility use dose modulation, iterative reconstruction, and/or weight-based dosing when appropriate to reduce radiation dose to as low as reasonably achievable. Dictated by Crow Kaplan MD @ 01/04/2023 1:25:47 PM (Electronic Signature) ECG Data Attestation: I personally reviewed and interpreted this ECG as follows: (Atrial fibrillation with RVR, 147 beats per minute. There is some baseline subway in this EKG but do not appreciate definitive ischemic change. Did compare to her 1 from clinic at 9:50 a.m. today, similar except that rate is 165. ) ECG interpretation date: 01/04/23 ECG interpretation time: 10:46 Discharge Plan Discharge Clinical Impression: Congestive heart failure, Hypoxia, COPD (chronic obstructive pulmonary disease), Atrial fibrillation with rapid ventricular response Patient Disposition: Admitted As Observation
[2023-01-04] MEDS: 0.9 % SODIUM CHLORIDE 1000 ml 1,000 ML IV (10:35)
--- NOTE | 2023-01-04 10:38 | CRLHL7_ITS ---
For Patients: As a result of the Century Cures Act, medical imaging exams and procedure reports are released immediately into your electronic medical record. You may view this report before your referring provider. If you have questions, please contact your health care provider. INDICATION: sob, afib w/ rvr, copd. TECHNIQUE: Chest 1 view. COMPARISON: None. FINDINGS: Cardiovascular and mediastinum: Cardiomediastinal silhouette is within normal limits. Calcific atherosclerosis of the aorta. Lungs and pleural spaces: bibasilar airspace opacities. Perihilar interstitial opacities. Small bilateral pleural effusions. No pneumothorax identified. Bones and soft tissues: Unremarkable for age. IMPRESSION: Bibasilar opacities may reflect aspiration, infection or atelectasis. Small bilateral pleural effusions. Bilateral airspace opacities may reflect edema, or viral infection. Dictated by Ibeth Doll MD @ 01/04/2023 12:15:18 PM (Electronically Signed)
[2023-01-04 10:49] LABS: HCO3 VBG 26 mmol/L (21-28); Lactate* 1.5 mmol/L (0.5-1.9); PCO2 VBG 40 mmHG (40-50); PO2 VBG 53.7 mmHG (25-47); pH VBG 7.421 (7.32-7.43)
[2023-01-04 10:53] LABS: Basophils Percent Auto 0.2 % (0.0-3.0); Eosinophils Percent Auto 0.3 % (0.0-7.0); Hematocrit 42.8 % (33.0-51.0); Hemoglobin* 13.8 gm/dL (12.0-16.0); Immature Granulocytes Pct Auto 0.1 %; Lymphocytes Percent Auto 10.5 % (20-44); Mean Corpuscular HGB Conc 32 gm/dL (32-36); Mean Corpuscular Hemoglobin 30 pg (26-34); Mean Corpuscular Volume 93 fL (80-100); Neutrophils Percent Auto 76.9 % (42.0-72.0); Platelet Count* 278 K/uL (140-440); RDW Coefficient of Variation % 14.5 % (11.5-15.5); Red Blood Count 4.58 m/uL (4.00-5.20); White Blood Count* 13.98 K/uL (4.50-11.00)
[2023-01-04 10:55] LABS: Slide Review Reflex No
[2023-01-04 11:09] LABS: Albumin* 3.6 g/dL (3.3-5.0); Chloride* 104 mmol/L (96-114); Sodium* 136 mmol/L (135-149)
[2023-01-04 11:10] LABS: Potassium* 4.4 mmol/L (3.6-5.1)
[2023-01-04 11:11] LABS: Creatinine* 0.5 mg/dL (0.5-1.5); Est. Creatinine Clearance* 42.07; Estimated Glomerular Filt Rate 100 ml/min; INR 2.89 (0.91-1.10); Prothrombin Time 32.5 Seconds
[2023-01-04 11:12] LABS: Alanine Aminotransferase* 28 U/L (4-35); Alkaline Phosphatase* 74 U/L (40-150); Anion Gap 9 mEq/L (7-15); Aspartate Amino Transferase* 38 U/L (12-35); Bilirubin Total* 0.8 mg/dL (0.1-1.5); Blood Urea Nitrogen* 18 mg/dL (7-30); Carbon Dioxide* 23 mmol/L (20-32); Glucose* 147 mg/dL (60-115); Total Protein* 7.1 g/dL (6.0-8.3)
[2023-01-04 11:13] LABS: Calcium* 8.9 mg/dL (8.4-10.6); Magnesium* 1.7 mg/dL (1.5-2.6)
--- NOTE | 2023-01-04 11:20 | CRLHL7_ITS ---
For Patients: As a result of the Century Cures Act, medical imaging exams and procedure reports are released immediately into your electronic medical record. You may view this report before your referring provider. If you have questions, please contact your health care provider. INDICATION: Chronic obstructive pulmonary disease, atrial fibrillation and shortness of breath. TECHNIQUE: Axial images were obtained from the thoracic inlet to the diaphragm. Reformats: Coronal and sagittal IV Contrast: None COMPARISON: Chest CT 12/10/2019 FINDINGS: Mediastinum: Thoracic aorta is normal in caliber with atherosclerotic calcification. Dilation of the main pulmonary artery centrally. Pretracheal lymph nodes measure up to 11 millimeters in short axis. High right paratracheal lymph nodes measure 10 millimeters and AP window lymph nodes measure up to 14 millimeters. Calcified right hilar lymph node. Lungs and Pleural Space: Small bilateral pleural effusions within the dependent portion of the hemithoraces. Centrilobular emphysema. Bronchial wall thickening with some interlobular septal thickening in the lung bases. Chest wall: No masses. Upper abdomen: Normal. Bones: Unremarkable for age. IMPRESSION: 1. Small bilateral pleural effusions with interlobular septal thickening in the lung bases consistent with pulmonary edema. 2. Underlying moderate centrilobular emphysema. 3. Mediastinal lymphadenopathy, similar to the prior examination. Please note that all CT scans at this facility use dose modulation, iterative reconstruction, and/or weight-based dosing when appropriate to reduce radiation dose to as low as reasonably achievable. Dictated by Crow Kaplan MD @ 01/04/2023 1:25:47 PM (Electronically Signed)
[2023-01-04 11:34] LABS: PCR FLU A Negative PCR FLU A (Negative); PCR FLU B Negative PCR FLU B (Negative); PCR RSV Negative PCR RSV (Negative)
[2023-01-04] MEDS: DIGOXIN 250 MCG/ML inj 500 MCG IV (11:36)
[2023-01-04 11:39] LABS: NT Pro B Type NatriureticPept* 5330 pg/mL; Troponin I* < 0.01 ng/mL (0.01-0.04)
[2023-01-04 11:54] LABS: SARS PCR* Negative SARS-CoV-2 (Negative)
[2023-01-04] MEDS: FUROSEMIDE 10 MG/ML inj 20 MG IVP (12:39)
--- NOTE | 2023-01-04 12:51 | P.IMHP_ITS ---
Hospitalist- H&P: HPI History of Present Illness Date Seen: 01/04/23 Chief complaint: Rapid heartrate Narrative: ADMISSION HISTORY AND PHYSICAL - HOSPITALIST Chief Complaint: I can not breathe HPI: 72-year-old Nicky presents with ongoing and worsening dyspnea since late November. This is approximately 2 weeks prior to presentation to clinic this morning. She was seen in our ED on 12/19 in given prednisone and doxycycline for COPD exacerbation. Her heart rate was normal at that time. She saw her PCP this morning and was noted to be hypoxic and tachycardic in the clinic. Atrial fibrillation with RVR was identified and her acute hypoxia was identified. She was transferred to the emergency room for further cares. She states that she is short of breath at rest and extremely short of breath with any exertion. She describes a dry cough. She states her ankles are more swollen than usual. She has been having to sleep in the recliner. She denies specifically paroxysmal nocturnal orthopnea. She denies any anginal type symptoms. No fevers. She lives with her sister. She has become a since last time I admitted her. She continues to smoke. ER COURSE: Identified AFib RVR. Given a loading dose of digoxin without much change in her heart rate. Cardiology telephone consult. They recommended digoxin loading, Dilt if needed. Her troponin undetectable. CODE STATUS: FULL CODE EMERGENCY CONTACT PLAN: Annel Orr? Sister?Rel to [facility]? [phone]?Cell Phone? I've updated the PFSH, medications and allergies in the Expanse tabs. INVESTIGATIONS: LABS/MICRO/ECG/IMAGING Pulses been 176 down to 147 Pulse ox is 87% needing 1 L to keep sats greater than 88% Afebrile CBC reflects a mild leukocytosis but she has also been on steroids 13.98. Neutrophil percentage 76.9%. Her hemoglobin is normal. Her platelet count is normal. She is on warfarin and her INR is 2.89 appropriately Blood gases 7.4 with no CO2 retention. Her bicarb is normal Comparing her blood work to the 25th when she was in the ED she had a low normal sodium, that is now normal. Otherwise normal electrolytes and normal renal function. Her lactate is normal. Her calcium magnesium and bilirubin are all normal. Her troponin is undetectable. Her CRP is actually down trending from the 25th. However, her BNP has increased from [id number]. Procalcitonin is pending Quad screen negative on both the 25th and 10th Chest CT - noncontrast: 1. Small bilateral pleural effusions with interlobular septal thickening in the lung bases consistent with pulmonary edema. 2. Underlying moderate centrilobular emphysema. 3. Mediastinal lymphadenopathy, similar to the prior examination. Chest x-ray revealed bibasilar opacities. Small pleural effusions. Radiology reflected if this is edema or viral infection No antibiotics have been started. There was no microbiology studies. EKG shows AFib with RVR Echo in her last hospitalization in 2019 Final Impressions: 1. Normal left ventricular size, normal wall thickness, hyperdynamic global systolic function, calculated EF of 84 %. 2. Moderately enlarged left atrium. 3. The aortic valve is trileaflet and sclerotic, no stenosis and no regurgitation. 4. The mitral valve is sclerotic, mild mitral regurgitation. 5. The inferior vena cava is dilated, respiratory size variation greater than 50%. REVIEW OF SYSTEMS: 12-point ROS completed with patient and negative unless otherwise stated in HPI or below. PHYSICAL EXAM: CONSTITUTIONAL: She looks exhausted. She is dyspneic at rest. aware. VITAL SIGNS: see record. HEENT: Normocephalic, atraumatic. PERRL, EOMI, conjunctivae pink, no scleral icterus. Ears and nose externally normal. Pharynx normal. NECK: No JVD. No carotid bruit, no thyromegaly, no adenopathy. CHEST: scattered rhonchi HEART: S1 and S2 normal. No harsh murmurs. Edema 1-2+ MUSCULOSKELETAL: No gross joint deformity or swelling. NEURO: Cranial nerves intact. Grossly intact. No asymmetric findings. SKIN: No rashes, petechiae, concerning changes PSYCHIATRIC: Euthymic. ADMIT TO MEDSURG: CCU DVT: continue warfarin GI: PO intake Time spent: Today I spent 75 minutes seeing the patient, discussing the patient with ER staff, reviewing Expanse and EPIC notes/diagnostics, discussing the care plan with our care time that includes social work, PT/OT, pharmacy, RT, correction and documenting my impressions and plan in the medical record. Blood pressure 100/79, 108/83, 102/83. Low has been 89/74 [facility] Medical History (Updated 01/04/23 @ 14:37 by Alejandrina Stewart MD) Warfarin anticoagulation ?Z79.01 - long-term (current) use of anticoagulants (ICD-10) Smokes tobacco daily ?F17.200 - Nicotine dependence, unspecified, uncomplicated (ICD-10) History of subarachnoid hemorrhage ?Z86.79 - Personal history of other diseases of the circulatory system (ICD- 10) Hypertension ?I10 - Essential (primary) hypertension (ICD-10) Surgical History (Updated 01/04/23 @ 13:15 by Alejandrina Stewart MD) History of total abdominal hysterectomy ?Z90.710 - Acquired absence of both cervix and uterus (ICD-10) S/P coil embolization of cerebral aneurysm ?Z98.890 - Other specified postprocedural states (ICD-10) Social History What is your current living situation?: I presently have a place to live Problems where you live: no known problems Problems where you live details: None In the past 12 months, utilities in danger of being shut off: no In past 12 months, lack of transportation kept you from medical appts, meetings, work, or getting things needed for daily living: no In the past 12 mos, have been you worried that your food would run out before you had money to buy more?: never true In the past 12 mos, the food you bought just didn't last and you didn't have money to buy more?: never true Highest level of school completed/degree received: some college, no degree Smoking Status: Current every day smoker What tobacco products do you use: cigarettes Smoking packs per day: 1 Smoking cigarettes per day: 20.0 Years smoked: 60 Smoking pack-years: 60.00 Do you use any of these nicotine containing products: None Second hand tobacco smoke exposure: Yes How often do you have a drink containing alcohol: never How many standard drinks containing alcohol do you have on a typical day: 1 or 2 How often do you have six or more drinks on one occasion: Never AUDIT-C Alcohol total score: 0 Non-prescribed substance use: denies use Caffeine: Yes (Coffee) How often does anyone, including family, friends and others, physically hurt you : never How often does anyone, including family, friends and others, insult or talk down to you: never How often does anyone, including family, friends and others, threaten you with harm: never How often does anyone, including family, friends and others, scream or curse at you: never service: No Meds Home Medications and Allergies Home Medications Medication Instructions Recorded Confirmed Type albuterol sulfate 90 mcg/actuation 2 puff inhalation Q4H PRN wheezing 06/07/22 01/04/23 History aerosol inhaler atorvastatin 80 mg tablet 80 mg PO HS 06/07/22 01/04/23 History bisoprolol fumarate 5 mg tablet 2.5 mg PO DAILY 06/07/22 01/04/23 History diltiazem HCl 240 mg 240 mg PO DAILY 06/07/22 01/04/23 History capsule,extended release 24 hr warfarin 5 mg tablet 5 mg PO .MO,TH 06/07/22 01/04/23 History budesonide 1 mg/2 mL suspension 1 mg inhalation BID 01/04/23 01/04/23 History for nebulization fluticasone 250 mcg-salmeterol 50 1 ea inhalation Q12H 01/04/23 01/04/23 History mcg/dose blistr powdr for inhalation (Advair Diskus) gabapentin 300 mg capsule 300 mg PO 3XD 01/04/23 01/04/23 History ipratropium 0.5 mg-albuterol 3 mg 3 ml inhalation QID 01/04/23 01/04/23 History (2.5 mg base)/3 mL nebulization soln warfarin 2.5 mg tablet 2.5 mg PO .VERA,TU,WE,FR,SA 01/04/23 01/04/23 History Allergies Allergy/AdvReac Type Severity Reaction Status Date / Time No Known Drug Allergies Allergy Verified 06/07/22 02:24 Exam Const: Vital Signs, click to edit/add: Vital Signs - 24 hr 01/04/23 10:16 01/04/23 10:23 01/04/23 10:24 Temperature 97.7 F Pulse Rate 144 H 146 H Pulse Rate [Pulse Oximeter] 156 H Respiratory Rate 40 H Blood Pressure 94/77 Blood Pressure [Le ft Upper Arm] 94/81 Pulse Oximetry 86 L 91 89 Oxygen Delivery Me thod Room Air Oxygen Flow Rate 01/04/23 10:30 01/04/23 10:32 01/04/23 10:36 Temperature Pulse Rate 136 H 143 H 146 H Pulse Rate [Pulse Oximeter] Respiratory Rate Blood Pressure 88/65 L 98/74 Blood Pressure [Le ft Upper Arm] Pulse Oximetry 91 91 91 Oxygen Delivery Me thod Oxygen Flow Rate 01/04/23 10:42 01/04/23 10:45 01/04/23 10:51 Temperature Pulse Rate 141 H 162 H Pulse Rate [Pulse Oximeter] Respiratory Rate Blood Pressure 97/77 Blood Pressure [Le ft Upper Arm] Pulse Oximetry 92 92 92 Oxygen Delivery Me thod Oxygen Flow Rate 01/04/23 10:51 01/04/23 10:51 01/04/23 11:00 Temperature Pulse Rate 154 H 153 H Pulse Rate [Pulse Oximeter] Respiratory Rate Blood Pressure 117/75 Blood Pressure [Le ft Upper Arm] Pulse Oximetry 92 92 90 Oxygen Delivery Me thod Nasal Cannula Oxygen Flow Rate 1 01/04/23 11:01 01/04/23 11:11 01/04/23 11:15 Temperature Pulse Rate 158 H 134 H 164 H Pulse Rate [Pulse Oximeter] Respiratory Rate Blood Pressure 107/64 95/77 Blood Pressure [Le ft Upper Arm] Pulse Oximetry 91 93 92 Oxygen Delivery Me thod Oxygen Flow Rate 01/04/23 11:21 01/04/23 11:30 01/04/23 11:31 Temperature Pulse Rate 141 H 137 H 147 H Pulse Rate [Pulse Oximeter] Respiratory Rate Blood Pressure 89/74 L 103/85 Blood Pressure [Le ft Upper Arm] Pulse Oximetry 92 92 93 Oxygen Delivery Me thod Oxygen Flow Rate 01/04/23 11:36 01/04/23 11:42 01/04/23 11:45 Temperature Pulse Rate 176 H 144 H 152 H Pulse Rate [Pulse Oximeter] Respiratory Rate Blood Pressure 102/83 Blood Pressure [Le ft Upper Arm] Pulse Oximetry 92 94 Oxygen Delivery Me thod Oxygen Flow Rate 01/04/23 11:52 01/04/23 12:01 01/04/23 12:12 Temperature Pulse Rate 152 H 147 H Pulse Rate [Pulse Oximeter] Respiratory Rate Blood Pressure 108/83 100/79 Blood Pressure [Le ft Upper Arm] Pulse Oximetry 87 L 92 Oxygen Delivery Me thod Oxygen Flow Rate 01/04/23 12:15 Temperature Pulse Rate 147 H Pulse Rate [Pulse Oximeter] Respiratory Rate Blood Pressure Blood Pressure [Le ft Upper Arm] Pulse Oximetry 92 Oxygen Delivery Me thod Oxygen Flow Rate Hospitalist - H&P: Result Labs Labs: Short CBC 01/04/23 Range/Units 10:30 WBC 13.98 H (4.50-11.00) K/uL Hgb 13.8 (12.0-16.0) gm/dL Hct 42.8 (33.0-51.0) % Plt Count 278 (140-440) K/uL BMP 01/04/23 10:30 Sodium 136 Potassium 4.4 Chloride 104 Carbon Dioxide 23 BUN 18 Creatinine 0.5 Glucose 147 H Calcium 8.9 Cardiac Enzymes 01/04/23 Range/Units 10:30 Troponin I < 0.01 L (0.01-0.04) ng/mL Liver Function 01/04/23 Range/Units 10:30 Total Bilirubin 0.8 (0.1-1.5) mg/dL AST 38 H (12-35) U/L ALT 28 (4-35) U/L Alkaline Phosphatase 74 (40-150) U/L Albumin 3.6 (3.3-5.0) g/dL Assessment and Plan Assessment and plan (1) Atrial fibrillation with rapid ventricular response: Problem comment: -atrial fibrillation is not new. Diagnosed in 2020. This is her 2nd presentation for RVR. She is appropriately anticoagulated on warfarin. -In the ED she was hypotensive so she was initiated on digoxin. Cards was consulted and they recommended continuing the digoxin load as well as using diltiazem previously as this has been effective for her and given her hypotension and chronic lung disease they felt amiodarone and metoprolol were relatively contraindicated. Upon arrival to the floor she had plenty of blood pressure so I held the next dose of digoxin and will start her on a diltiazem dr abdoulaye with metoprolol. -now with superimposed acute congestive failure -no ischemic injury thus far -no obvious ongoing infection Status: Acute (2) COPD (chronic obstructive pulmonary disease): Problem comment: Has completed a course of doxycycline 1 week prior to admission Has been on steroids since the 19 of December Continues to smoke Has qualified for home O2 but has not yet coordinated delivery of DME -Solu-Medrol is ordered for 4 doses, prednisone can then be ordered a long taper likely need Status: Acute (3) Congestive heart failure: Problem comment: -updating echo 01/04. I reviewed the 2019 echo which was quite reassuring. -diuresis needed, patient appears volume overloaded. IV Lasix 60 mg IV given 01/04 will transition oral Lasix on the morning of 01/05 Status: Acute (4) Hypertension: Problem comment: -hypotension noted in the ED, resolved upon arrival to CCU1 -home meds: bisoprolol, dilt (holding her bisoprolol (not on formulary and will need multiple doses). next oral dilt due 01/05 - have hold parameters depending on if she is still on dilt. Status: Acute (5) Smokes tobacco daily: Problem comment: 60+ years Status: Acute (6) S/P coil embolization of cerebral aneurysm: Problem comment: Urgent neuro surgery secondary to hemorrhage. December 2007. Status: Inactive (7) Warfarin anticoagulation: Problem comment: -initiated for AFib in 2019 -INR therapeutic on admission, will continue. Pharm consult placed. daily INR ordered Status: Acute
--- NOTE | 2023-01-04 12:59 | ED.NURSE ---
pt report given off to dereje RODRIGUEZ. Pt transferred to the floor with tele box.
[2023-01-04 13:25] LABS: Procalcitonin* 0.06 ng/mL (<0.50)
[2023-01-04] MEDS: GABAPENTIN 300 MG CAPSULE PO ×2 (14:30→21:26)
[2023-01-04] MEDS: FUROSEMIDE 10 MG/ML inj 40 MG IVP (14:30)
[2023-01-04] MEDS: SODIUM CHLORIDE 0.9 % (FLUSH) 10 ML SYRINGE 5 ML IVF ×2 (14:31→21:27)
[2023-01-04] MEDS: dilTIAZem HCL 125 MG in 0.9 % SODIUM CHLORIDE 100 ml 100 ML 10 MG IVPB (14:31)
[2023-01-04] MEDS: METHYLPREDNISOLONE SOD SUCC 62.5 MG/ML (125) 125 MG IVP ×2 (14:31→20:30)
[2023-01-04] MEDS: METOPROLOL TARTRATE 25 MG TABLET PO ×2 (14:48→20:30)
[2023-01-04] MEDS: IPRAT-ALBUT 0.5-2.5 MG/3 ML NEB 1 NEB IH ×2 (15:38→21:26)
[2023-01-04 18:18] LABS: Appearance Urine Clear (Clear); Bilirubin Urine Negative (Negative); Blood Urine 2+ (Negative); Color Urine Yellow (Yellow); Glucose Urine Negative (Negative); Ketones Urine Negative (Negative); Leukocyte Esterase Urine Negative (Negative); Nitrite Urine Negative (Negative); Protein Urine Negative (Negative); Specific Gravity Urine 1.015 (1.000-1.030); Urobilinogen Urine 0.2 (0.2-1.0)
[2023-01-04] MEDS: WARFARIN 2.5 MG TABLET PO (18:19)
--- NOTE | 2023-01-04 18:32 | PC.NURSE ---
end of shift. pt has been pleasant. pt HR is A-Fib with RVR. HR was 150's upon admission. tele is on showing A-Fib. she is alert x4. she has o2 on @ 1L nc. she has o2 tubbing to reach the BR. IV is patent and SL is also patent. BP are high md was updated. Diltazem drip was started @ 10 and later increased to 15. She is up to the BSC. she gets very SOB with activity. LS are tight IS start 500 encourage 10 x a hour. Aerobika was also started and encouraged use. neb was given to help with breathing. she is up ab yasmani to BSC. she got IV lasix and has been voiding alot. BP are above 100 with drip. she is eating, drinking and voiding. she is CCU pt. will monitor.
[2023-01-04 19:05] LABS: RBC Urine 0-2 (0-2); WBC Urine 0-2 (0-5)
--- NOTE | 2023-01-04 19:33 | RESP.RT ---
Patient is resting comfortably on 1L NC SATing 90%. RR 18. She has a strong nonproductive cough that sounds very wet. Feet are swollen. She desaturates with activity chronically, and family says that she routinely gets into the low 60's with activity and takes time for her to recover. We will need to address home O2 needs at discharge.
[2023-01-04] MEDS: ATORVASTATIN CALCIUM 40 MG TABLET 80 MG PO (21:26)
[2023-01-04] MEDS: BUDESONIDE 0.5 MG/2ML NEB 1 MG NEB (21:27)
[2023-01-05] VITALS (14 sets, daily range): BP systolic 100–111; BP diastolic 59–86; PULSE 78–133; RESP 18–20; TEMP 36.5–36.9; O2SAT 90–94
[2023-01-05] MEDS: dilTIAZem HCL 125 MG in 0.9 % SODIUM CHLORIDE 100 ml 100 ML 10 MG IVPB (00:10)
[2023-01-05] MEDS: METHYLPREDNISOLONE SOD SUCC 62.5 MG/ML (125) 125 MG IVP ×2 (02:24→09:32)
[2023-01-05 06:44] LABS: HCO3 VBG 31 mmol/L (21-28); PCO2 VBG 52 mmHG (40-50); PO2 VBG 33.8 mmHG (25-47); pH VBG 7.384 (7.32-7.43)
--- NOTE | 2023-01-05 07:03 | PC.NURSE ---
Shift note: Dilt dtt at 10mg/hr throughout the night, pt HR is at 80-105 bpm. She reports less SOB, sitting at the edge of the bed more comfortable. O2 1L via NC required overnight, deep breathing, cough and IS encouraged.
[2023-01-05 07:07] LABS: Hematocrit 43.5 % (33.0-51.0); Hemoglobin* 14.1 gm/dL (12.0-16.0); Mean Corpuscular HGB Conc 32 gm/dL (32-36); Mean Corpuscular Hemoglobin 30 pg (26-34); Mean Corpuscular Volume 94 fL (80-100); Platelet Count* 288 K/uL (140-440); Red Blood Count 4.65 m/uL (4.00-5.20); White Blood Count* 8.68 K/uL (4.50-11.00)
[2023-01-05 07:21] LABS: INR 2.97 (0.91-1.10); Prothrombin Time 33.2 Seconds
[2023-01-05 07:23] LABS: Slide Review Reflex No
[2023-01-05 07:28] LABS: Chloride* 101 mmol/L (96-114); Potassium* 4.6 mmol/L (3.6-5.1); Sodium* 138 mmol/L (135-149)
[2023-01-05 07:31] LABS: Creatinine* 0.4 mg/dL (0.5-1.5); Est. Creatinine Clearance* 42.07; Estimated Glomerular Filt Rate 105 ml/min
[2023-01-05 07:32] LABS: Anion Gap 9 mEq/L (7-15); Blood Urea Nitrogen* 20 mg/dL (7-30); Calcium* 8.9 mg/dL (8.4-10.6); Carbon Dioxide* 28 mmol/L (20-32); Glucose* 182 mg/dL (60-115); Magnesium* 1.8 mg/dL (1.5-2.6)
[2023-01-05 07:35] LABS: C Reactive Protein* 8.4 mg/dL (0.5-1.0)
[2023-01-05 07:45] LABS: Troponin I* < 0.01 ng/mL (0.01-0.04)
[2023-01-05] MEDS: METOPROLOL TARTRATE 25 MG TABLET PO (09:31)
[2023-01-05] MEDS: FUROSEMIDE 40 MG TABLET 80 MG PO (09:31)
[2023-01-05] MEDS: GABAPENTIN 300 MG CAPSULE PO ×3 (09:32→21:15)
[2023-01-05] MEDS: IPRAT-ALBUT 0.5-2.5 MG/3 ML NEB 1 NEB IH ×4 (09:33→21:14)
[2023-01-05] MEDS: BUDESONIDE 0.5 MG/2ML NEB 1 MG NEB ×2 (09:33→21:15)
[2023-01-05] MEDS: dilTIAZem 240 MG CAP (CD) PO (09:37)
[2023-01-05] MEDS: SODIUM CHLORIDE 0.9 % (FLUSH) 10 ML SYRINGE 5 ML IVF ×2 (09:38→21:15)
--- NOTE | 2023-01-05 09:42 | P.IMPN_ITS ---
Progress Note: A&P Assessment and plan (1) Atrial fibrillation with rapid ventricular response: Problem details: -atrial fibrillation is not new. Diagnosed in 2020. This is her 2nd presentation for RVR. She is appropriately anticoagulated on warfarin. -01/04/23 In the ED she was hypotensive so she was initiated on digoxin. Cards was consulted and they recommended continuing the digoxin load as well as using diltiazem previously as this has been effective for her and given her hypotensio n and chronic lung disease they felt amiodarone and metoprolol were relatively contraindicated. Upon arrival to the floor she had plenty of blood pressure so I held the next dose of digoxin and will start her on a diltiazem drip with metoprolol. -now with superimposed acute congestive failure -no ischemic injury thus far -no obvious ongoing infection - 01/05 Rate control improved on IV diltiazem drip and PO diltiazem. Drip stopped this morning after dose of long acting diltiazem. 80-90s at rest, 120s with activity. Goal HR is <80 at rest and <110 with activity. Will give extra dose of PO diltiazem today and increase daily diltiazem dose starting tomorrow. Status: Acute (2) Warfarin anticoagulation: Problem details: -initiated for AFib in 2019 -INR therapeutic. Continue to monitor daily while adjusting meds and diuresing. Status: Acute (3) Hypertension: Problem details: -01/04/23 hypotension noted in the ED, resolved upon arrival to [facility] - 01/05 bisoprolol remains on hold. Blood pressure low normal. Continue to monitor. Status: Acute (4) Congestive heart failure: Problem details: - ECHO repeated 01/04. Preliminary read: hyperdynamic LV systolic function, MS mean gradient approximately 10 mm Hg, LA 80, mild MR, AV sclerosis, mild TR with elevated RVSP of approximately 42 mm Hg plus RAP. -01/05/23 Patient still appears volume overloaded. Transitioned to PO lasix this morning. Cr stable. I suspect she will diurese better now that her rate is controlled. If still volume overloaded tomorrow with little improvement overnight, consider resuming IV furosemide. Status: Acute (5) COPD (chronic obstructive pulmonary disease): Problem details: Has completed a course of doxycycline 1 week prior to admission Has been on steroids since the 19 of December Continues to smoke Has qualified for home O2 but has not yet coordinated delivery of DME - 01/05/23 Got 4 doses of Solu-Medrol, last one this morning. Still having expiratory wheezes. Start prednisone 60 mg daily today. Status: Acute (6) Smokes tobacco daily: Problem details: 60+ years Status: Chronic Subjective Time Seen by Provider: 08:26 Date Seen: 01/05/23 Interval history: Nicky greeted me greatly and said that she feels much better. She is less short of breath and has much more energy today, according to her. She asked me about home oxygen and says that she was prescribed in the clinic a few days before admission but was unable to get it because of insurance problems. Exam Narrative: Exam Narrative: General: No acute distress. Awake, alert, oriented x3. No pallor. No jaundice. Affect: Bright and cheerful. Oropharynx: Clear. Mucous membranes moist. Cardiovascular: Regular rate and rhythm. No murmurs, gallops, or rubs. Respiratory: Bibasilar crackles, left greater than right. Scattered expiratory wheezes. Abdomen: Bowel sounds present. Soft, nondistended, nontender. Extremities: 1 to 2+ pretibial edema. Const: Vital Signs, click to edit/add: Vital Signs - 24 hr 01/04/23 10:16 01/04/23 10:23 01/04/23 10:24 Temperature 97.7 F Pulse Rate 144 H 146 H Pulse Rate [Left P ulse Oximeter] Pulse Rate [Pulse Oximeter] 156 H Respiratory Rate 40 H Blood Pressure 94/77 Blood Pressure [Le ft Arm] Blood Pressure [Le ft Upper Arm] 94/81 Blood Pressure [Ri ght Arm] Pulse Oximetry 86 L 91 89 Oxygen Delivery Me thod Room Air Nasal Cannula Nasal Cannula Oxygen Flow Rate 1 1 01/04/23 10:30 01/04/23 10:32 01/04/23 10:36 Temperature Pulse Rate 136 H 143 H 146 H Pulse Rate [Left P ulse Oximeter] Pulse Rate [Pulse Oximeter] Respiratory Rate Blood Pressure 88/65 L 98/74 Blood Pressure [Le ft Arm] Blood Pressure [Le ft Upper Arm] Blood Pressure [Ri ght Arm] Pulse Oximetry 91 91 91 Oxygen Delivery Me thod Nasal Cannula Nasal Cannula Nasal Cannula Oxygen Flow Rate 1 1 1 01/04/23 10:42 01/04/23 10:45 01/04/23 10:51 Temperature Pulse Rate 141 H 162 H Pulse Rate [Left P ulse Oximeter] Pulse Rate [Pulse Oximeter] Respiratory Rate Blood Pressure 97/77 Blood Pressure [Le ft Arm] Blood Pressure [Le ft Upper Arm] Blood Pressure [Ri ght Arm] Pulse Oximetry 92 92 92 Oxygen Delivery Me thod Nasal Cannula Nasal Cannula Oxygen Flow Rate 1 1 01/04/23 10:51 01/04/23 10:51 01/04/23 11:00 Temperature Pulse Rate 154 H 153 H Pulse Rate [Left P ulse Oximeter] Pulse Rate [Pulse Oximeter] Respiratory Rate Blood Pressure 117/75 Blood Pressure [Le ft Arm] Blood Pressure [Le ft Upper Arm] Blood Pressure [Ri ght Arm] Pulse Oximetry 92 92 90 Oxygen Delivery Me thod Nasal Cannula Nasal Cannula Nasal Cannula Oxygen Flow Rate 1 1 1 01/04/23 11:01 01/04/23 11:11 01/04/23 11:15 Temperature Pulse Rate 158 H 134 H 164 H Pulse Rate [Left P ulse Oximeter] Pulse Rate [Pulse Oximeter] Respiratory Rate Blood Pressure 107/64 95/77 Blood Pressure [Le ft Arm] Blood Pressure [Le ft Upper Arm] Blood Pressure [Ri ght Arm] Pulse Oximetry 91 93 92 Oxygen Delivery Me thod Nasal Cannula Nasal Cannula Nasal Cannula Oxygen Flow Rate 1 1 1 01/04/23 11:21 01/04/23 11:30 01/04/23 11:31 Temperature Pulse Rate 141 H 137 H 147 H Pulse Rate [Left P ulse Oximeter] Pulse Rate [Pulse Oximeter] Respiratory Rate Blood Pressure 89/74 L 103/85 Blood Pressure [Le ft Arm] Blood Pressure [Le ft Upper Arm] Blood Pressure [Ri ght Arm] Pulse Oximetry 92 92 93 Oxygen Delivery Me thod Nasal Cannula Nasal Cannula Nasal Cannula Oxygen Flow Rate 1 1 1 01/04/23 11:36 01/04/23 11:42 01/04/23 11:45 Temperature Pulse Rate 176 H 144 H 152 H Pulse Rate [Left P ulse Oximeter] Pulse Rate [Pulse Oximeter] Respiratory Rate Blood Pressure 102/83 Blood Pressure [Le ft Arm] Blood Pressure [Le ft Upper Arm] Blood Pressure [Ri ght Arm] Pulse Oximetry 92 94 Oxygen Delivery Me thod Nasal Cannula Nasal Cannula Oxygen Flow Rate 1 1 01/04/23 11:52 01/04/23 12:01 01/04/23 12:12 Temperature Pulse Rate 152 H 147 H Pulse Rate [Left P ulse Oximeter] Pulse Rate [Pulse Oximeter] Respiratory Rate Blood Pressure 108/83 100/79 Blood Pressure [Le ft Arm] Blood Pressure [Le ft Upper Arm] Blood Pressure [Ri ght Arm] Pulse Oximetry 87 L 92 Oxygen Delivery Me thod Nasal Cannula Nasal Cannula Nasal Cannula Oxygen Flow Rate 1 1 1 01/04/23 12:15 01/04/23 12:21 01/04/23 12:30 Temperature Pulse Rate 147 H 120 H 134 H Pulse Rate [Left P ulse Oximeter] Pulse Rate [Pulse Oximeter] Respiratory Rate Blood Pressure 109/89 Blood Pressure [Le ft Arm] Blood Pressure [Le ft Upper Arm] Blood Pressure [Ri ght Arm] Pulse Oximetry 92 93 93 Oxygen Delivery Me thod Nasal Cannula Nasal Cannula Nasal Cannula Oxygen Flow Rate 1 1 1 01/04/23 12:32 01/04/23 12:50 01/04/23 12:50 Temperature 98.1 F 98.1 F Pulse Rate 151 H Pulse Rate [Left P ulse Oximeter] 147 H Pulse Rate [Pulse Oximeter] Respiratory Rate 24 24 Blood Pressure 120/90 H Blood Pressure [Le ft Arm] 148/91 H 148/91 H Blood Pressure [Le ft Upper Arm] Blood Pressure [Ri ght Arm] Pulse Oximetry 93 91 91 Oxygen Delivery Me thod Nasal Cannula Nasal Cannula Nasal Cannula Oxygen Flow Rate 1 1 01/04/23 12:55 01/04/23 12:56 01/04/23 14:08 Temperature Pulse Rate 129 H Pulse Rate [Left P ulse Oximeter] Pulse Rate [Pulse Oximeter] Respiratory Rate 24 24 Blood Pressure Blood Pressure [Le ft Arm] Blood Pressure [Le ft Upper Arm] Blood Pressure [Ri ght Arm] Pulse Oximetry 91 91 Oxygen Delivery Me thod Nasal Cannula Nasal Cannula Oxygen Flow Rate 1 01/04/23 14:35 01/04/23 14:40 01/04/23 14:45 Temperature 98.1 F Pulse Rate Pulse Rate [Left P ulse Oximeter] 138 H 138 H 167 H Pulse Rate [Pulse Oximeter] Respiratory Rate 24 24 22 Blood Pressure Blood Pressure [Le ft Arm] 148/91 H Blood Pressure [Le ft Upper Arm] Blood Pressure [Ri ght Arm] 111/81 111/81 111/93 H Pulse Oximetry 93 93 91 Oxygen Delivery Me thod Nasal Cannula Nasal Cannula Nasal Cannula Oxygen Flow Rate 1 1 01/04/23 15:00 01/04/23 15:15 01/04/23 15:30 Temperature 98.1 F Pulse Rate Pulse Rate [Left P ulse Oximeter] 134 H 140 H 124 H Pulse Rate [Pulse Oximeter] Respiratory Rate 24 24 22 Blood Pressure Blood Pressure [Le ft Arm] Blood Pressure [Le ft Upper Arm] Blood Pressure [Ri ght Arm] 124/91 H 139/73 114/88 Pulse Oximetry 91 92 91 Oxygen Delivery Me thod Nasal Cannula Nasal Cannula Nasal Cannula Oxygen Flow Rate 1 1 1 01/04/23 15:30 01/04/23 15:45 01/04/23 16:00 Temperature Pulse Rate Pulse Rate [Left P ulse Oximeter] 157 H 125 H 129 H Pulse Rate [Pulse Oximeter] Respiratory Rate 22 22 Blood Pressure Blood Pressure [Le ft Arm] Blood Pressure [Le ft Upper Arm] Blood Pressure [Ri ght Arm] 111/76 115/74 Pulse Oximetry 91 91 Oxygen Delivery Me thod Nasal Cannula Nasal Cannula Oxygen Flow Rate 1 1 01/04/23 16:15 01/04/23 16:30 01/04/23 16:45 Temperature 98.1 F Pulse Rate Pulse Rate [Left P ulse Oximeter] 111 H 119 H 123 H Pulse Rate [Pulse Oximeter] Respiratory Rate 22 24 20 Blood Pressure Blood Pressure [Le ft Arm] Blood Pressure [Le ft Upper Arm] Blood Pressure [Ri ght Arm] 118/83 134/90 H 110/83 Pulse Oximetry 91 91 91 Oxygen Delivery Me thod Nasal Cannula Nasal Cannula Nasal Cannula Oxygen Flow Rate 1 1 1 01/04/23 17:00 01/04/23 17:17 01/04/23 17:30 Temperature 98.1 F Pulse Rate 136 H Pulse Rate [Left P ulse Oximeter] 112 H 117 H Pulse Rate [Pulse Oximeter] Respiratory Rate 22 22 Blood Pressure Blood Pressure [Le ft Arm] Blood Pressure [Le ft Upper Arm] Blood Pressure [Ri ght Arm] 100/65 100/58 L Pulse Oximetry 91 93 Oxygen Delivery Me thod Nasal Cannula Nasal Cannula Oxygen Flow Rate 1 1 01/04/23 18:00 01/04/23 19:00 01/04/23 19:30 Temperature 98.1 F Pulse Rate Pulse Rate [Left P ulse Oximeter] 100 105 H 108 H Pulse Rate [Pulse Oximeter] Respiratory Rate 20 28 H 22 Blood Pressure Blood Pressure [Le ft Arm] Blood Pressure [Le ft Upper Arm] Blood Pressure [Ri ght Arm] 101/71 115/93 H 114/71 Pulse Oximetry 90 91 92 Oxygen Delivery Me thod Nasal Cannula Nasal Cannula Nasal Cannula Oxygen Flow Rate 1 1 1 01/04/23 19:49 01/04/23 20:30 01/04/23 22:00 Temperature 98.1 F Pulse Rate Pulse Rate [Left P ulse Oximeter] 105 H 102 H 95 Pulse Rate [Pulse Oximeter] Respiratory Rate 28 H 20 Blood Pressure Blood Pressure [Le ft Arm] Blood Pressure [Le ft Upper Arm] Blood Pressure [Ri ght Arm] 113/71 115/71 Pulse Oximetry 90 Oxygen Delivery Me thod Nasal Cannula Oxygen Flow Rate 1 01/04/23 22:13 01/05/23 00:00 01/05/23 02:00 Temperature 98.3 F Pulse Rate 84 Pulse Rate [Left P ulse Oximeter] 84 91 Pulse Rate [Pulse Oximeter] Respiratory Rate 20 20 Blood Pressure Blood Pressure [Le ft Arm] Blood Pressure [Le ft Upper Arm] Blood Pressure [Ri ght Arm] 100/72 Pulse Oximetry 91 Oxygen Delivery Me thod Nasal Cannula Oxygen Flow Rate 1 01/05/23 02:00 01/05/23 03:00 01/05/23 03:00 Temperature 98.3 F 98.3 F Pulse Rate Pulse Rate [Left P ulse Oximeter] 84 84 92 Pulse Rate [Pulse Oximeter] Respiratory Rate 20 20 20 Blood Pressure Blood Pressure [Le ft Arm] Blood Pressure [Le ft Upper Arm] Blood Pressure [Ri ght Arm] 107/68 104/76 Pulse Oximetry 93 90 Oxygen Delivery Me thod Nasal Cannula Nasal Cannula Oxygen Flow Rate 1 1 01/05/23 04:00 01/05/23 07:05 Temperature Pulse Rate 83 Pulse Rate [Left P ulse Oximeter] 92 Pulse Rate [Pulse Oximeter] Respiratory Rate 18 Blood Pressure Blood Pressure [Le ft Arm] Blood Pressure [Le ft Upper Arm] Blood Pressure [Ri ght Arm] 111/72 Pulse Oximetry 91 Oxygen Delivery Me thod Nasal Cannula Oxygen Flow Rate 1 Labs Labs: Laboratory Results - last 24 hr 01/04/23 01/04/23 01/04/23 10:29 10:30 12:05 WBC 13.98 H RBC 4.58 Hgb 13.8 Hct 42.8 MCV 93 MCH 30 MCHC 32 RDW Coeff of Volodymyr 14.5 Plt Count 278 Neut % (Auto) 76.9 H Lymph % (Auto) 10.5 L Wells % (Auto) 12.0 H Eos % (Auto) 0.3 Baso % (Auto) 0.2 Neut # (Auto) 10.80 H Lymph # (Auto) 1.50 Wells # (Auto) 1.70 H Eos # (Auto) 0.00 Baso # (Auto) 0.00 Abs Immat Gran (auto) 0.00 Imm/Tot Granulo (auto) 0.1 INR 2.89 H VBG pH 7.421 VBG pCO2 40 VBG pO2 53.7 H VBG HCO3 26 Sodium 136 Potassium 4.4 Chloride 104 Carbon Dioxide 23 Anion Gap 9 BUN 18 Creatinine 0.5 Estimated Creat Clear 42.07 Estimated GFR 100 Glucose 147 H Lactate 1.5 Calcium 8.9 Magnesium 1.7 Total Bilirubin 0.8 AST 38 H ALT 28 Alkaline Phosphatase 74 Troponin I < 0.01 L C-Reactive Protein 5.0 H NT-Pro-B Natriuret Pep 5330 Total Protein 7.1 Albumin 3.6 Procalcitonin 0.06 Urine Color Urine Appearance Urine pH Ur Specific Sch[place] Urine Protein Urine Glucose (UA) Urine Ketones Urine Blood Urine Nitrite Urine Bilirubin Urine Urobilinogen Ur Leukocyte Esterase Urine RBC Urine WBC Urine WBC Clumps Ur Squamous Epith Cells [place] Biurate Crystals Calcium Carbonate Cryst Calcium Phosphate Cryst Calcium Oxalate Crystal Cystine Crystals Uric Acid Crystals Triple Phos Crystals Sulfur Crystals Cholesterol Crystals Tyrosine Crystals Hippuric Acid Crystals Amorphous Sediment Other Sediment Urine Bacteria Fatty Casts Hyaline Casts Fine Granular Casts Coarse Granular Casts Waxy Casts RBC Casts WBC Casts Other Casts Urine Starch Urine Mucus Urine Trichomonas Urine Yeast SARS-CoV-2 (PCR) Negative SARS-CoV-2 Influenza Type A (PCR) Negative PCR FLU A Influenza Type B (PCR) Negative PCR FLU B RSV (PCR) Negative PCR RSV Lab Acknowledgement Test Added 01/04/23 01/04/23 01/05/23 16:20 18:11 06:12 WBC 8.68 RBC 4.65 Hgb 14.1 Hct 43.5 MCV 94 MCH 30 MCHC 32 RDW Coeff of Volodymyr Plt Count 288 Neut % (Auto) Lymph % (Auto) Wells % (Auto) Eos % (Auto) Baso % (Auto) Neut # (Auto) Lymph # (Auto) Wells # (Auto) Eos # (Auto) Baso # (Auto) Abs Immat Gran (auto) Imm/Tot Granulo (auto) INR 2.97 H VBG pH 7.384 VBG pCO2 52 H VBG pO2 33.8 VBG HCO3 31 H Sodium 138 Potassium 4.6 Chloride 101 Carbon Dioxide 28 Anion Gap 9 BUN 20 Creatinine 0.4 L Estimated Creat Clear 42.07 Estimated GFR 105 Glucose 182 H Lactate Calcium 8.9 Magnesium 1.8 Total Bilirubin AST ALT Alkaline Phosphatase Troponin I < 0.01 L C-Reactive Protein 8.4 H NT-Pro-B Natriuret Pep Total Protein Albumin Procalcitonin Urine Color Cancelled Yellow Urine Appearance Cancelled Clear Urine pH Cancelled 5.0 Ur Specific [place] Cancelled 1.015 Urine Protein Cancelled Negative Urine Glucose (UA) Cancelled Negative Urine Ketones Cancelled Negative Urine Blood Cancelled 2+ A Urine Nitrite Cancelled Negative Urine Bilirubin Cancelled Negative Urine Urobilinogen Cancelled 0.2 Ur Leukocyte Esterase Cancelled Negative Urine RBC Cancelled 0-2 Urine WBC Cancelled 0-2 Urine WBC Clumps Cancelled Ur Squamous Epith Cells Cancelled None [place] Biurate Crystals Cancelled Calcium Carbonate Cryst Cancelled Calcium Phosphate Cryst Cancelled Calcium Oxalate Crystal Cancelled Cystine Crystals Cancelled Uric Acid Crystals Cancelled Triple Phos Crystals Cancelled Sulfur Crystals Cancelled Cholesterol Crystals Cancelled Tyrosine Crystals Cancelled Hippuric Acid Crystals Cancelled Amorphous Sediment Cancelled Other Sediment Cancelled Urine Bacteria Cancelled None Fatty Casts Cancelled Hyaline Casts Cancelled Fine Granular Casts Cancelled Coarse Granular Casts Cancelled Waxy Casts Cancelled RBC Casts Cancelled WBC Casts Cancelled Other Casts Cancelled Urine Starch Cancelled Urine Mucus Cancelled Urine Trichomonas Cancelled Urine Yeast Cancelled SARS-CoV-2 (PCR) Influenza Type A (PCR) Influenza Type B (PCR) RSV (PCR) Lab Acknowledgement
--- NOTE | 2023-01-05 10:52 | RESP.RT ---
Pt reports that she was prescribed oxygen in clinic, but order was not accepted, as data was not complete. We will re qualify her when she is stable.
[2023-01-05] MEDS: dilTIAZem 120 MG CAP.ER.24H PO (12:52)
[2023-01-05] MEDS: predniSONE 20 MG TABLET 60 MG PO (13:43)
--- NOTE | 2023-01-05 18:11 | PC.NURSE ---
Pt transitioned from diltiazem gtt @ 0945, she received 240 mg of PO diltiazem w/her am meds. No dysphagia noted. BP stable. HR 90-103 at rest. Mild activity brings her HR to 113 range. With activity she can go up to 129 however she recovers rapidly and denies CP or SOB. Second dose of Diltiazem 120mg po given this afternoon after consultation with Dr. Maye Soto. Tele indicates a-fib with RVR. Plan to continue monitoring patient HR and manage any symptoms that may occur. Pt remains on 1L/nc and sats 91-94%. Good appetite and adequate output. Teaching on IS and Aerobika, pt was able to cough up a small amt of clear sputum, however her cough was dry and intermittent throughout the majority of the shift. Please see eMar for meds provided to pt from [id number] pm. Report will be provided to oncoming shift RN.
[2023-01-05] MEDS: WARFARIN 2.5 MG TABLET PO (18:38)
[2023-01-05] MEDS: METOPROLOL SUCCINATE (XL) 50 MG TAB PO (21:15)
[2023-01-05] MEDS: ATORVASTATIN CALCIUM 40 MG TABLET 80 MG PO (21:15)
[2023-01-06 02:45] VITALS: BP 111/91; PULSE 141; RESP 20; TEMP 36.7; O2SAT 94
[2023-01-06] MEDS: METOPROLOL TARTRATE 1 MG/ML inj 5 MG IVP (03:00)
--- NOTE | 2023-01-06 06:35 | PC.NURSE ---
Shift note: HR continuously increased throughout the night from 90-110 in pm to 120-150ies around 3am. [facility] was notified, new orders received. Pt's HR 90-100th this morning. Continue to require 1L O2 via NC, independent in the room, no c/o pain.
[2023-01-06 07:00] VITALS: BP 110/67; PULSE 87; PULSE 90; RESP 20; TEMP 36.7; O2SAT 91
[2023-01-06 07:12] LABS: INR 4.04 (0.91-1.10); Prothrombin Time 42.6 Seconds
[2023-01-06 07:14] LABS: Chloride* 103 mmol/L (96-114)
[2023-01-06 07:15] LABS: Sodium* 137 mmol/L (135-149)
[2023-01-06 07:17] LABS: Creatinine* 0.6 mg/dL (0.5-1.5); Est. Creatinine Clearance* 42.07; Estimated Glomerular Filt Rate 95 ml/min
[2023-01-06 07:18] LABS: Anion Gap 6 mEq/L (7-15); Blood Urea Nitrogen* 28 mg/dL (7-30); Calcium* 8.7 mg/dL (8.4-10.6); Carbon Dioxide* 28 mmol/L (20-32); Glucose* 222 mg/dL (60-115); Potassium* 4.3 mmol/L (3.6-5.1)
[2023-01-06] MEDS: predniSONE 20 MG TABLET 60 MG PO (08:19)
[2023-01-06] MEDS: FUROSEMIDE 40 MG TABLET 80 MG PO (08:20)
[2023-01-06] MEDS: dilTIAZem 240 MG CAP (CD) PO (09:09)
[2023-01-06] MEDS: GABAPENTIN 300 MG CAPSULE PO ×3 (09:10→21:12)
[2023-01-06] MEDS: dilTIAZem 120 MG CAP.ER.24H PO (09:10)
[2023-01-06] MEDS: METOPROLOL SUCCINATE (XL) 50 MG TAB PO ×2 (09:11→21:12)
[2023-01-06] MEDS: SODIUM CHLORIDE 0.9 % (FLUSH) 10 ML SYRINGE 5 ML IVF ×2 (09:11→21:12)
[2023-01-06] MEDS: BUDESONIDE 0.5 MG/2ML NEB 1 MG NEB ×2 (09:11→21:12)
[2023-01-06] MEDS: IPRAT-ALBUT 0.5-2.5 MG/3 ML NEB 1 NEB IH ×4 (09:11→21:12)
[2023-01-06 11:00] VITALS: BP 100/65; PULSE 86; RESP 18; TEMP 36.6; O2SAT 91
[2023-01-06 11:41] VITALS: RESP 20; O2SAT 93
--- NOTE | 2023-01-06 11:46 | RESP.RT ---
Nebulizer with DuoNeb and Pulmicort patient used well. PEP and IS with patient, good effort for both, promoted non-productive cough. Patient able to larger breath post treatments. Higher number 2000 on IS. On 1 Lpm SaO2 93%, breathing regular/easy. BBS with fine crackles and expiratory wheeze all lung alvarez, Left Lower lobe greater expiratory wheeze and coarse crackles noted.
--- NOTE | 2023-01-06 14:55 | PC.NURSE ---
VSS, sats low 90s on 1L NC. Denies pain. LS fine crackles through out, nebs, using incentive spirometry & aerobika frequently. Tolerating regular diet, drinking well. C/o constipation- offered different options, refuses at this time. Abdomen soft, passing gas. Voided 475 cc, clear, light yellow urine. Up to bathroom, uses the commode off and on. PIV- SL'd. Sister, who she lives with, visited today. Will continue to monitor, follow POC, and keep pt and family updated. Brenda Martínez RN
--- NOTE | 2023-01-06 16:03 | P.IMPN_ITS ---
Progress Note: A&P Assessment and plan (1) Atrial fibrillation with rapid ventricular response: Problem details: -atrial fibrillation is not new. Diagnosed in 2020. This is her 2nd presentation for RVR. She is appropriately anticoagulated on warfarin. -01/04/23 In the ED she was hypotensive so she was initiated on digoxin. Cards was consulted and they recommended continuing the digoxin load as well as using diltiazem previously as this has been effective for her and given her hypotensio n and chronic lung disease they felt amiodarone and metoprolol were relatively contraindicated. Upon arrival to the floor she had plenty of blood pressure so I held the next dose of digoxin and will start her on a diltiazem drip with metoprolol. -now with superimposed acute congestive failure -no ischemic injury thus far -no obvious ongoing infection - 01/05 Rate control improved on IV diltiazem drip and PO diltiazem. Drip stopped this morning after dose of long acting diltiazem. 80-90s at rest, 120s with activity. Goal HR is <80 at rest and <110 with activity. Will give extra dose of PO diltiazem today and increase daily diltiazem dose starting tomorrow. - 01/06 Rate control variable overnight, but appears improved now on increased po diltiazem and po scheduled metoprolol. Continue to monitor overnight and see how she does with heart rate while moving around. Will need 24 hours of stability on current heart rate medications prior to discharge. Status: Acute (2) Warfarin anticoagulation: Problem details: -initiated for AFib in 2019 -INR supratherapeutic. Hold today's dose. Status: Acute (3) Hypertension: Problem details: -01/04/23 hypotension noted in the ED, resolved upon arrival to [facility] - bisoprolol stopped and metoprolol started for rate control. Blood pressure low normal. Continue to monitor. Status: Acute (4) Congestive heart failure: Problem details: - ECHO repeated 01/04. Preliminary read: hyperdynamic LV systolic function, MS mean gradient approximately 10 mm Hg, LA 80, mild MR, AV sclerosis, mild TR with elevated RVSP of approximately 42 mm Hg plus RAP. -01/05/23 Patient still appears volume overloaded. Transitioned to PO lasix this morning. Cr stable. I suspect she will diurese better now that her rate is controlled. If still volume overloaded tomorrow with little improvement overnight, consider resuming IV furosemide. - 01/06 diuresing well, but continues to require 1 liter/minute nasal cannula. Mild increase in creatinine. Continue diuresis and monitor. Status: Acute (5) COPD (chronic obstructive pulmonary disease): Problem details: Has completed a course of doxycycline 1 week prior to admission Has been on steroids since the 19 of December Continues to smoke Has qualified for home O2 but has not yet coordinated delivery of DME - 01/05/23 Got 4 doses of Solu-Medrol, last one this morning. Still having expiratory wheezes. Start prednisone 60 mg daily today. - 01/06 no longer wheezing. Continue prednisone daily for a total of 5 days of steroids. Status: Acute (6) Smokes tobacco daily: Problem details: 60+ years, encouraged quitting. Status: Chronic Subjective Time Seen by Provider: 09:00 Date Seen: 01/06/23 Interval history: Nicky continues to feel better although she did have a rough night with elevated HR requiring IV metoprolol at 3am. She is now getting higher diltiazem CD dose that was started this morning along with metoprolol 50 mg p.o. b.i.d. started last night. After the IV metoprolol given this morning her heart rates have been in improved and less than 100 at rest. Exam Narrative: Exam Narrative: General: No acute distress. Awake, alert, oriented x3. No pallor. No jaundice. Affect: Bright and cheerful. Oropharynx: Clear. Mucous membranes moist. Cardiovascular: Regular rate and rhythm. No murmurs, gallops, or rubs. Respiratory: Bibasilar crackles, left greater than right, less than yesterday. No wheezes. Abdomen: Bowel sounds present. Soft, nondistended, nontender. Extremities: 1 to 2+ pretibial edema. Const: Vital Signs, click to edit/add: Vital Signs - 24 hr 01/05/23 19:46 01/05/23 22:08 01/05/23 23:00 Temperature 97.8 F Pulse Rate 133 H Pulse Rate [Left P ulse Oximeter] 120 H 133 H Respiratory Rate 20 Blood Pressure [Le ft Arm] 105/66 Blood Pressure [Ri ght Arm] Pulse Oximetry 91 92 Oxygen Delivery Me thod Nasal Cannula Nasal Cannula Oxygen Flow Rate 1 1 01/05/23 23:00 01/05/23 23:00 01/06/23 02:45 Temperature 97.8 F 98.0 F Pulse Rate Pulse Rate [Left P ulse Oximeter] 133 H 133 H 141 H Respiratory Rate 20 20 20 Blood Pressure [Le ft Arm] 105/66 111/91 H Blood Pressure [Ri ght Arm] 101/71 Pulse Oximetry 92 94 Oxygen Delivery Me thod Nasal Cannula Nasal Cannula Oxygen Flow Rate 1 1 01/06/23 07:00 01/06/23 07:00 01/06/23 07:00 Temperature 98.0 F Pulse Rate 87 Pulse Rate [Left P ulse Oximeter] 90 90 Respiratory Rate 20 20 Blood Pressure [Le ft Arm] 110/67 Blood Pressure [Ri ght Arm] Pulse Oximetry 91 Oxygen Delivery Me thod Nasal Cannula Oxygen Flow Rate 1 01/06/23 11:00 01/06/23 11:41 Temperature 97.9 F Pulse Rate Pulse Rate [Left P ulse Oximeter] 86 Respiratory Rate 18 20 Blood Pressure [Le ft Arm] 100/65 Blood Pressure [Ri ght Arm] Pulse Oximetry 91 93 Oxygen Delivery Me thod Nasal Cannula Nasal Cannula Oxygen Flow Rate 1 1 Labs Labs: Laboratory Results - last 24 hr 01/06/23 06:27 INR 4.04 H Sodium 137 Potassium 4.3 Chloride 103 Carbon Dioxide 28 Anion Gap 6 L BUN 28 Creatinine 0.6 Estimated Creat Clear 42.07 Estimated GFR 95 Glucose 222 H Calcium 8.7
[2023-01-06 19:00] VITALS: BP 100/68; PULSE 113; RESP 20; TEMP 36.6; O2SAT 94
[2023-01-06] MEDS: SENNOSIDES/DOCUSATE TABLET 1 TAB PO (19:24)
[2023-01-06] MEDS: ATORVASTATIN CALCIUM 40 MG TABLET 80 MG PO (21:12)
[2023-01-06 23:00] VITALS: PULSE 124; RESP 20; O2SAT 90
[2023-01-07] VITALS (8 sets, daily range): BP systolic 102–119; BP diastolic 65–86; PULSE 84–138; RESP 18–20; TEMP 36.6–37; O2SAT 89–93
[2023-01-07] MEDS: METOPROLOL TARTRATE 1 MG/ML inj 5 MG IVP (03:16)
[2023-01-07] MEDS: SODIUM CHLORIDE 0.9 % (FLUSH) 10 ML SYRINGE 5 ML IVF ×3 (03:17→20:37)
[2023-01-07 06:22] LABS: Chloride* 103 mmol/L (96-114); Potassium* 4.5 mmol/L (3.6-5.1); Sodium* 136 mmol/L (135-149)
[2023-01-07 06:25] LABS: Anion Gap 3 mEq/L (7-15); Blood Urea Nitrogen* 26 mg/dL (7-30); Carbon Dioxide* 30 mmol/L (20-32); Creatinine* 0.5 mg/dL (0.5-1.5); Est. Creatinine Clearance* 42.07; Estimated Glomerular Filt Rate 100 ml/min; Glucose* 156 mg/dL (60-115)
[2023-01-07 06:26] LABS: Calcium* 8.7 mg/dL (8.4-10.6)
--- NOTE | 2023-01-07 06:28 | PC.NURSE ---
Shift note: HR increased again tonight 110-140ies, [facility] was called 1 time order received, see eMAR. Pt denies chest pain with increased HR, however reports feeling more SOB with exertion. No other complains throughout this shift, pt is voiding, had a BM
[2023-01-07 06:41] LABS: INR 4.04 (0.91-1.10); Prothrombin Time 42.6 Seconds
[2023-01-07] MEDS: dilTIAZem 240 MG CAP (CD) PO (08:51)
[2023-01-07] MEDS: METOPROLOL SUCCINATE (XL) 50 MG TAB PO ×2 (08:51→20:36)
[2023-01-07] MEDS: FUROSEMIDE 40 MG TABLET 80 MG PO (08:51)
[2023-01-07] MEDS: dilTIAZem 120 MG CAP.ER.24H PO ×2 (08:51→16:59)
[2023-01-07] MEDS: GABAPENTIN 300 MG CAPSULE PO ×3 (08:51→20:36)
[2023-01-07] MEDS: predniSONE 20 MG TABLET 60 MG PO (08:52)
[2023-01-07] MEDS: IPRAT-ALBUT 0.5-2.5 MG/3 ML NEB 1 NEB IH ×4 (08:52→20:36)
--- NOTE | 2023-01-07 11:47 | PM.IMPN1 ---
Progress Note: A&P Assessment and plan (1) Atrial fibrillation with rapid ventricular response: Problem details: -atrial fibrillation is not new. Diagnosed in 2020. This is her 2nd presentation for RVR. She is appropriately anticoagulated on warfarin. -01/04/23 In the ED she was hypotensive so she was initiated on digoxin. Cards was consulted and they recommended continuing the digoxin load as well as using diltiazem previously as this has been effective for her and given her hypotension and chronic lung disease they felt amiodarone and metoprolol were relatively contraindicated. Upon arrival to the floor she had plenty of blood pressure so I held the next dose of digoxin and will start her on a diltiazem drip with metoprolol. -now with superimposed acute congestive failure -no ischemic injury thus far -no obvious ongoing infection - 01/05 Rate control improved on IV diltiazem drip and PO diltiazem. Drip stopped this morning after dose of long acting diltiazem. 80-90s at rest, 120s with activity. Goal HR is <80 at rest and <110 with activity. Will give extra dose of PO diltiazem today and increase daily diltiazem dose starting tomorrow. - 01/06 Rate control variable overnight, but appears improved now on increased po diltiazem and po scheduled metoprolol. Continue to monitor overnight and see how she does with heart rate while moving around. Will need 24 hours of stability on current heart rate medications prior to discharge. - 01/07 Well controlled during the day yesterday, RVR during the night. I spoke with Dr. Mckenzie from [facility] who recommended increasing overall daily dose of Cardizem and splitting it up to BID dosing. She recommended not increasing the metoprolol because of the COPD. Will continue to monitor on telemetry overnight to see if we have achieved 24 hour rate control. If so, she can likely go home tomorrow. Status: Acute (2) Warfarin anticoagulation: Problem details: -initiated for AFib in 2019 -INR supratherapeutic. Halve today's dose. Status: Acute (3) Hypertension: Problem details: -01/04/23 hypotension noted in the ED, resolved upon arrival to [facility] - bisoprolol stopped and metoprolol started for rate control. Blood pressure acceptable. Increasing diltiazem today. Continue to monitor. Status: Acute (4) Congestive heart failure: Problem details: - ECHO repeated 01/04. Preliminary read: hyperdynamic LV systolic function, MS mean gradient approximately 10 mm Hg, LA 80, mild MR, AV sclerosis, mild TR with elevated RVSP of approximately 42 mm Hg plus RAP. -01/05/23 Patient still appears volume overloaded. Transitioned to PO lasix this morning. Cr stable. I suspect she will diurese better now that her rate is controlled. If still volume overloaded tomorrow with little improvement overnight, consider resuming IV furosemide. - 01/06 diuresing well, stable on RA. Still some crackles. Creatinine stable. Continue diuresis and monitor. Status: Acute (5) COPD (chronic obstructive pulmonary disease): Problem details: Has completed a course of doxycycline 1 week prior to admission Has been on steroids since the 19 of December Continues to smoke Has qualified for home O2 but has not yet coordinated delivery of DME - 01/05/23 Got 4 doses of Solu-Medrol, last one this morning. Still having expiratory wheezes. Start prednisone 60 mg daily today. - 01/06 no longer wheezing. Continue prednisone daily for a total of 5 days of steroids. - 01/07 mild wheezing. On RA. Not SOB. Continue prednisone burst as is. Status: Acute (6) Smokes tobacco daily: Problem details: 60+ years, encouraged quitting. Status: Chronic Time Spent With Patient Total time spent: Today I spent 35 minutes rounding on the patient. Greater than 50% included discussing care with the team, call to [facility], reviewing data, updating and managing the care plan. Subjective Time Seen by Provider: 07:35 Date Seen: 01/07/23 Interval history: Nicky is feeling okay overall. She had high HR overnight again. HR had been controlled all day yesterday, even with activity. She experienced some chest pressure with the fast HR around 3am. That is gone now. Exam Narrative: Exam Narrative: General: No acute distress. Awake, alert, oriented. No pallor. No jaundice. Oropharynx: Clear. Mucous membranes moist. Cardiovascular: Regular rate and rhythm. No murmurs, gallops, or rubs. Respiratory: Faint bibasilar crackles, left greater than right, less than yesterday. Mild scattered expiratory wheezes. Abdomen: Bowel sounds present. Soft, nondistended, nontender. Extremities: 1 to 2+ pretibial edema. Const: Vital Signs, click to edit/add: Vital Signs - 24 hr 01/06/23 19:00 01/06/23 23:00 01/06/23 23:00 Temperature 98 F Pulse Rate 124 H Pulse Rate [Left P ulse Oximeter] 113 H 124 H Respiratory Rate 20 20 Blood Pressure [Le ft Arm] 100/68 Pulse Oximetry 94 Oxygen Delivery Me thod Nasal Cannula Oxygen Flow Rate 1 01/06/23 23:00 01/07/23 03:00 01/07/23 07:33 Temperature 98 F Pulse Rate 84 Pulse Rate [Left P ulse Oximeter] 124 H 117 H Respiratory Rate 20 20 Blood Pressure [Le ft Arm] 111/84 Pulse Oximetry 90 93 Oxygen Delivery Me thod Room Air Nasal Cannula Oxygen Flow Rate 1 01/07/23 07:47 Temperature 97.9 F Pulse Rate Pulse Rate [Left P ulse Oximeter] 98 Respiratory Rate 18 Blood Pressure [Le ft Arm] 119/86 Pulse Oximetry 89 Oxygen Delivery Me thod Room Air Oxygen Flow Rate Labs Labs: Laboratory Results - last 24 hr 01/07/23 05:53 INR 4.04 H Sodium 136 Potassium 4.5 Chloride 103 Carbon Dioxide 30 Anion Gap 3 L BUN 26 Creatinine 0.5 Estimated Creat Clear 42.07 Estimated GFR 100 Glucose 156 H Calcium 8.7
--- NOTE | 2023-01-07 14:39 | RESP.RT ---
Unable to qualify for home oxygen at this time. She is not stable yet cardiovascularly. Meds changed by MD today.
[2023-01-07] MEDS: WARFARIN 2 MG TABLET 1 MG PO (16:54)
[2023-01-07] MEDS: BUDESONIDE 0.5 MG/2ML NEB 1 MG NEB (20:34)
[2023-01-07] MEDS: ATORVASTATIN CALCIUM 40 MG TABLET 80 MG PO (20:36)
[2023-01-07] MEDS: SENNOSIDES/DOCUSATE TABLET 1 TAB PO (20:36)
[2023-01-08] VITALS (9 sets, daily range): BP systolic 105–131; BP diastolic 69–83; PULSE 85–118; RESP 16–20; TEMP 36.3–36.6; O2SAT 88–93
--- NOTE | 2023-01-08 02:35 | PC.NURSE ---
Shift Note: Pt friendly and cooperative, HR tachy 120's-130's consistently this afternoon and pt denied feeling palpitations, CP, or pressure. HS dose of Diltiazem given early per MD. HS Metoprolol given and HR in 80's overnight. BP's low 100's systolically. Moves well independently. Sister in to visit this evening and brought dinner. Pt's appetite good, ate about 75% of her meal. Room air most of the afternoon but did require 2L/O2 via NC overnight. SpO2 dips to 84% on RA.
[2023-01-08 06:59] LABS: INR 2.92 (0.91-1.10); Prothrombin Time 32.8 Seconds
[2023-01-08] MEDS: FUROSEMIDE 40 MG TABLET 80 MG PO (07:35)
[2023-01-08] MEDS: predniSONE 20 MG TABLET 60 MG PO (07:35)
[2023-01-08] MEDS: GABAPENTIN 300 MG CAPSULE PO ×3 (08:37→20:55)
[2023-01-08] MEDS: METOPROLOL SUCCINATE (XL) 50 MG TAB PO ×2 (08:38→20:55)
[2023-01-08] MEDS: IPRAT-ALBUT 0.5-2.5 MG/3 ML NEB 1 NEB IH (08:40)
[2023-01-08] MEDS: dilTIAZem 240 MG CAP (CD) PO ×2 (08:40→20:55)
[2023-01-08] MEDS: BUDESONIDE 0.5 MG/2ML NEB 1 MG NEB ×2 (08:41→20:56)
[2023-01-08] MEDS: DIGOXIN 250 MCG/ML inj IV ×2 (10:12→15:00)
[2023-01-08] MEDS: SODIUM CHLORIDE 0.9 % (FLUSH) 10 ML SYRINGE 5 ML IVF ×2 (10:13→21:00)
--- NOTE | 2023-01-08 11:29 | PM.IMPN1 ---
Progress Note: A&P Assessment and plan (1) Atrial fibrillation with rapid ventricular response: Problem details: -atrial fibrillation is not new. Diagnosed in 2020. This is her 2nd presentation for RVR. She is appropriately anticoagulated on warfarin. -01/04/23 In the ED she was hypotensive so she was initiated on digoxin. Cards was consulted and they recommended continuing the digoxin load as well as using diltiazem previously as this has been effective for her and given her hypotension and chronic lung disease they felt amiodarone and metoprolol were relatively contraindicated. Upon arrival to the floor she had plenty of blood pressure so I held the next dose of digoxin and will start her on a diltiazem drip with metoprolol. -now with superimposed acute congestive failure -no ischemic injury thus far -no obvious ongoing infection - 01/05 Rate control improved on IV diltiazem drip and PO diltiazem. Drip stopped this morning after dose of long acting diltiazem. 80-90s at rest, 120s with activity. Goal HR is <80 at rest and <110 with activity. Will give extra dose of PO diltiazem today and increase daily diltiazem dose starting tomorrow. - 01/06 Rate control variable overnight, but appears improved now on increased po diltiazem and po scheduled metoprolol. Continue to monitor overnight and see how she does with heart rate while moving around. Will need 24 hours of stability on current heart rate medications prior to discharge. - 01/07 Well controlled during the day yesterday, RVR during the night. I spoke with Dr. Mckenzie from [facility] who recommended increasing overall daily dose of Cardizem and splitting it up to BID dosing. She recommended not increasing the metoprolol because of the COPD. - 01/08 HR remains above goal. Now on total dose of 380mg cardizem CD daily, divided BID, plus BID metoprolol 50mg. I spoke with Dr. Pereyra from [facility] today. Reviewed patient's h/o chronic afib, on therapeutic anticoagulation with warfarin without interruption, recently admitted for CHF, AFib with RVR, and COPD exacerbation. Reviewed that I think the COPD and CHF have under control, but AFib with RVR remains problematic, especially in the evenings and night time. Reviewed treatment with Cardizem drip, initially given a dose of digoxin but this was not continued, currently on twice a dose of Cardizem that she usually takes at home a bisoprolol changed to metoprolol and at an increased dose. He recommended starting digoxin and loading with 250 mcg IV q.6 hours for 2 doses and then starting oral digoxin tomorrow morning at 125 mcg p.o. daily. Said we may have to accept a higher heart rate goal for home going and recommended that if she is able to have a heart rate under 100 at rest and under 110 with activity, and she could be discharged on the current regimen with digoxin as above and have follow-up in Cardiology to work on improved rate control in the outpatient setting. If she is not under the those goals by tomorrow morning, then we should call Back and transfer for inpatient cardiology consultation as she may need ablation. I discussed these recommendations with the patient and she demonstrated understanding. Status: Acute (2) Warfarin anticoagulation: Problem details: -initiated for AFib in 2019 -INR therapeutic day. Will restart warfarin at 2.5 mg p.o. daily. Status: Acute (3) Hypertension: Problem details: -01/04/23 hypotension noted in the ED, resolved upon arrival to [facility] - bisoprolol stopped and metoprolol started for rate control. Blood pressure acceptable. Continue to monitor. Status: Acute (4) Congestive heart failure: Problem details: - ECHO repeated 01/04. Preliminary read: hyperdynamic LV systolic function, MS mean gradient approximately 10 mm Hg, LA 80, mild MR, AV sclerosis, mild TR with elevated RVSP of approximately 42 mm Hg plus RAP. -01/05/23 Patient still appears volume overloaded. Transitioned to PO lasix this morning. Cr stable. I suspect she will diurese better now that her rate is controlled. If still volume overloaded tomorrow with little improvement overnight, consider resuming IV furosemide. - 01/08 stable, no longer in exacerbation Status: Acute (5) COPD (chronic obstructive pulmonary disease): Problem details: Has completed a course of doxycycline 1 week prior to admission Has been on steroids since the 19 of December Continues to smoke Has qualified for home O2 but has not yet coordinated delivery of DME - 01/05/23 Got 4 doses of Solu-Medrol, last one this morning. Still having expiratory wheezes. Start prednisone 60 mg daily today. - 01/06 no longer wheezing. Continue prednisone daily for a total of 5 days of steroids. - 01/07 mild wheezing. On RA. Not SOB. Continue prednisone burst as is. - 01/08 improved. No longer in exacerbation. Complete prednisone burst to prevent relapse. Stop scheduled nebs to see if that helps with tachycardia. Continue prn nebs. Status: Acute (6) Smokes tobacco daily: Problem details: 60+ years, encouraged quitting. Status: Chronic Time Spent With Patient Total time spent: Today I spent 45 minutes rounding on the patient. Greater than 50% included discussing care with the team, call to [email or web address], reviewing data, updating and managing the care plan. Subjective Time Seen by Provider: 09:00 Date Seen: 01/08/23 Interval history: Nicky feels really well. She is hoping to go home soon, but is understanding that we need to get her HR under control first. She was in the 118s last night and is still having some elevated heart rates this morning in the low 100s at rest. She says she does not feel this other than a slight flutter overnight. She does not have any chest discomfort or shortness of breath. I told her about my conversation with Dr. Pereyra from [email or web address] and his recommendations. Exam Narrative: Exam Narrative: General: No acute distress. Awake, alert, oriented. No pallor. No jaundice. Oropharynx: Clear. Mucous membranes moist. Cardiovascular: Irregularly irregular, mildly tachycardic. Respiratory: Clear to auscultation bilaterally. No crackles or wheezes. Abdomen: Bowel sounds present. Soft, nondistended, nontender. Extremities: 1+ pretibial edema. Const: Vital Signs, click to edit/add: Vital Signs - 24 hr 01/07/23 12:26 01/07/23 15:00 01/07/23 15:00 Temperature 97.8 F Pulse Rate 104 H Pulse Rate [Left P ulse Oximeter] 96 136 H Respiratory Rate 20 20 Blood Pressure [Le ft Arm] 109/85 Blood Pressure [Ri ght Arm] Pulse Oximetry 90 Oxygen Delivery Me thod Room Air 01/07/23 16:00 01/07/23 20:00 01/07/23 23:00 Temperature 98 F 98.6 F Pulse Rate Pulse Rate [Left P ulse Oximeter] 136 H 118 H 118 H Respiratory Rate 20 20 20 Blood Pressure [Le ft Arm] 104/65 102/71 Blood Pressure [Ri ght Arm] Pulse Oximetry 90 89 Oxygen Delivery Me thod Room Air Room Air 01/07/23 23:00 01/08/23 00:00 01/08/23 04:58 Temperature 97.4 F L 97.7 F Pulse Rate 138 H Pulse Rate [Left P ulse Oximeter] 118 H 85 Respiratory Rate 18 16 Blood Pressure [Le ft Arm] 123/83 Blood Pressure [Ri ght Arm] 120/76 Pulse Oximetry 90 93 Oxygen Delivery Me thod Room Air Room Air 01/08/23 07:00 Temperature 97.6 F Pulse Rate Pulse Rate [Left P ulse Oximeter] 88 Respiratory Rate 20 Blood Pressure [Le ft Arm] Blood Pressure [Ri ght Arm] 117/81 Pulse Oximetry 88 Oxygen Delivery Nc thod Room Air Labs Labs: Laboratory Results - last 24 hr 01/08/23 05:46 INR 2.92 H
[2023-01-08] MEDS: WARFARIN 2.5 MG TABLET PO (17:19)
--- NOTE | 2023-01-08 19:03 | PC.NURSE ---
End of shift [id number] ? Pt alert, oriented, and cooperative during shift.?Pt up independently in room, to bathroom. Pt continent of bowel and bladder. Tolerating RA and maintaining O2 saturation at 88% and above. Denies pain, dizziness, nausea. Pt expressed disappointment in not being able to discharge today. RN provided emotional support and education regarding the importance of a safe discharge plan. Pt verbalized understanding of delayed discharge. Family at bedside during day, appears to be resting comfortably at end of shift. ?
[2023-01-08] MEDS: ATORVASTATIN CALCIUM 40 MG TABLET 80 MG PO (20:55)
[2023-01-09 03:00] VITALS: BP 126/73; PULSE 68; RESP 16; TEMP 36.4; O2SAT 92
--- NOTE | 2023-01-09 05:57 | PC.NURSE ---
End of shift report [id number]: Patient alert and oriented x 4, independent with ambulation and transfers. Denies any pain or shortness of breath. Patient required 1L oxygen while sleeping due to O2 sats decreasing to 86% on RA. Left upper lobe coarse crackles, lung sounds improve with coughing. All other lobes clear.
[2023-01-09 07:00] VITALS: BP 127/87; PULSE 85; RESP 18; O2SAT 92
[2023-01-09 07:15] LABS: INR 2.21 (0.91-1.10); Prothrombin Time 26.2 Seconds
[2023-01-09 07:18] LABS: Chloride* 100 mmol/L (96-114); Potassium* 3.8 mmol/L (3.6-5.1); Sodium* 132 mmol/L (135-149)
[2023-01-09 07:21] LABS: Anion Gap -4 mEq/L (7-15); Carbon Dioxide* 36 mmol/L (20-32); Creatinine* 0.6 mg/dL (0.5-1.5); Est. Creatinine Clearance* 42.07; Estimated Glomerular Filt Rate 95 ml/min
[2023-01-09 07:22] LABS: Blood Urea Nitrogen* 20 mg/dL (7-30); Calcium* 8.6 mg/dL (8.4-10.6); Glucose* 100 mg/dL (60-115)
[2023-01-09 07:56] VITALS: PULSE 77
--- NOTE | 2023-01-09 08:15 | P.DS_ITS ---
DS: Providers Provider Time Seen by Provider: 07:34 Date Seen: 01/09/23 Date of admission: 01/04/23 12:42 Primary care physician: Marry Cobb MD Admitting Clinician: Alejandrina Stewart MD Consults: 01/04/23 12:42 Consult to Occupational Therapy [CONS] Routine Comment: Reason(s) for OT Consult:: Evaluate and Treat Any Restrictions?:: No Restrictions Consult to Physical Therapy [CONS] Routine Comment: Reason(s) for PT Consult:: Evaluate and Treat Any Restrictions?:: No Restrictions Consult to Respiratory Therapy [CONS] Routine Comment: Reason(s) for RT Consult:: Consult Consult to Recruitment Consultant [CONS] Routine Comment: Reason for Consult:: Social Service Consult Attending Physician on discharge: Maye Soto MD Date of Discharge: 01/09/23 DS: Diagnosis Discharge Diagnosis (1) Atrial fibrillation with rapid ventricular response: Status: Acute Problem details: -atrial fibrillation is not new. Diagnosed in 2019. This is her 2nd presentation for RVR. She is appropriately anticoagulated on warfarin. -01/04/23 In the ED she was hypotensive so she was initiated on digoxin. Cards was consulted and they recommended continuing the digoxin load as well as using diltiazem previously as this has been effective for her and given her hypotension and chronic lung disease they felt amiodarone and metoprolol were relatively contraindicated. Upon arrival to the floor she had plenty of blood pressure so I held the next dose of digoxin and will start her on a diltiazem drip with metoprolol. -now with superimposed acute congestive failure -no ischemic injury thus far -no obvious ongoing infection - 01/05 Rate control improved on IV diltiazem drip and PO diltiazem. Drip stopped this morning after dose of long acting diltiazem. 80-90s at rest, 120s with activity. Goal HR is <80 at rest and <110 with activity. Will give extra d ose of PO diltiazem today and increase daily diltiazem dose starting tomorrow. - 01/06 Rate control variable overnight, but appears improved now on increased po diltiazem and po scheduled metoprolol. Continue to monitor overnight and see how she does with heart rate while moving around. Will need 24 hours of stability on current heart rate medications prior to discharge. - 01/07 Well controlled during the day yesterday, RVR during the night. I spoke with Dr. Mckenzie from [facility] who recommended increasing overall daily dose of Cardizem and splitting it up to BID dosing. She recommended not increasing the metoprolol because of the COPD. - 01/08 HR remains above goal. Now on total dose of 380mg cardizem CD daily, divided BID, plus BID metoprolol 50mg. I spoke with Dr. Pereyra from [facility] today. Reviewed patient's h/o chronic afib, on therapeutic anticoagulation with warfarin without interruption, recently admitted for CHF, AFib with RVR, and COPD exacerbation. Reviewed that I think the COPD and CHF have under control, but AFib with RVR remains problematic, especially in the evenings and night time. Reviewed treatment with Cardizem drip, initially given a dose of digoxin but this was not continued, currently on twice a dose of Cardizem that she usually takes at home a bisoprolol changed to metoprolol and at an increased dose. He recommended starting digoxin and loading with 250 mcg IV q.6 hours for 2 doses and then starting oral digoxin tomorrow morning at 125 mcg p.o. daily. Said we may have to accept a higher heart rate goal for home going and recommended that if she is able to have a heart rate under 100 at rest and under 110 with activity, and she could be discharged on the current regimen with digoxin as above and have follow-up in Cardiology to work on improved rate control in the outpatient setting. If she is not under the those goals by tomorrow morning, then we should call Back and transfer for inpatient cardiology consultation as she may need ablation. I discussed these recommendations with the patient and she demonstrated understanding. - 01/09 HR 60-70's overnight even with activity. She is feeling well today. Discharge home with PCP and cardiac follow up. (2) COPD (chronic obstructive pulmonary disease): Status: Acute Problem details: Has completed a course of doxycycline 1 week prior to admission Has been on steroids since the 19 of December Continues to smoke Has qualified for home O2 but has not yet coordinated delivery of DME - 01/05/23 Got 4 doses of Solu-Medrol, last one this morning. Still having expiratory wheezes. Start prednisone 60 mg daily today. - 01/06 no longer wheezing. Continue prednisone daily for a total of 5 days of steroids. - 01/07 mild wheezing. On RA. Not SOB. Continue prednisone burst as is. - 01/08 improved. No longer in exacerbation. Complete prednisone burst to prevent relapse. Stop scheduled nebs to see if that helps with tachycardia. Continue prn nebs. (3) Congestive heart failure: Status: Acute Problem details: - ECHO repeated 01/04. Preliminary read: hyperdynamic LV systolic function, MS mean gradient approximately 10 mm Hg, LA 80, mild MR, AV sclerosis, mild TR with elevated RVSP of approximately 42 mm Hg plus RAP. -01/05/23 Patient still appears volume overloaded. Transitioned to PO lasix this morning. Cr stable. I suspect she will diurese better now that her rate is controlled. If still volume overloaded tomorrow with little improvement overnight, consider resuming IV furosemide. - 01/08 stable, no longer in exacerbation (4) Warfarin anticoagulation: Status: Acute Problem details: -initiated for AFib in 2019 -INR therapeutic day. Will restart warfarin at 2.5 mg p.o. daily. (5) Hypertension: Status: Acute Problem details: -01/04/23 hypotension noted in the ED, resolved upon arrival to [facility] - bisoprolol stopped and metoprolol started for rate control. Blood pressure acceptable. (6) Smokes tobacco daily: Status: Chronic Problem details: 60+ years, encouraged quitting. DS: Summary Hospital Course Hospital Course: This is a 72-year-old female who had ongoing worsening dyspnea since late November despite having been on a course of prednisone and doxycycline for suspected COPD exacerbation. Upon presentation to the clinic on the day of admission she was hypoxic and tachycardic. She was admitted for atrial fibrillation with RVR and hypoxia. She described dry cough and swollen ankles. She was initially given a dose of digoxin for AFib with RVR because of hypotension, but the hypotension resolved and she was transitioned over to a Cardizem drip. She was also started on antibiotics and steroids for COPD exacerbation and Lasix for diuresis. Bisoprolol was held due to hypotension. Patient did fairly well with the Cardizem drip but did need and addition of metoprolol. She was transitioned over to oral Cardizem, but was unable to come under control despite increasing doses of that and then changing the dosing to twice a day. She was on metoprolol 50 mg twice a day which was thought to be a maximum for her due to her COPD. In consultation with Cardiology she was started on a digoxin load and then is continued on digoxin for discharge. Her heart rates are now within goal for discharge and she is discharged home today much improved from admission. She is to follow-up with her primary care provider later this week for labs and follow-up. Please see diagnoses above for more specific information per diagnoses. Time Spent with Patient Time attestation: Total time spent providing and/or coordinating discharge services: Exam Narrative: Exam Narrative: General: No acute distress. Awake, alert, oriented. No pallor. No jaundice. Oropharynx: Clear. Mucous membranes moist. Cardiovascular: Irregularly irregular, not tachycardic. Respiratory: Clear to auscultation bilaterally. No crackles or wheezes. Abdomen: Bowel sounds present. Soft, nondistended, nontender. Extremities: Trace pretibial edema. Const: Vital Signs, click to edit/add: Vital Signs - 24 hr 01/08/23 11:27 01/08/23 15:00 01/08/23 15:45 Temperature 97.7 F 97.7 F Pulse Rate 94 Pulse Rate [Left P ulse Oximeter] 91 104 H Respiratory Rate 20 20 Blood Pressure [Le ft Arm] 110/76 Blood Pressure [Ri ght Arm] 105/69 Pulse Oximetry 89 89 Oxygen Delivery Me thod Room Air Room Air Oxygen Flow Rate 01/08/23 19:00 01/08/23 23:00 01/08/23 23:00 Temperature 98 F Pulse Rate 99 Pulse Rate [Left P ulse Oximeter] 104 H 99 Respiratory Rate 20 20 Blood Pressure [Le ft Arm] 124/83 Blood Pressure [Ri ght Arm] Pulse Oximetry 91 Oxygen Delivery Me thod Room Air Oxygen Flow Rate 01/08/23 23:00 01/09/23 03:00 01/09/23 07:56 Temperature 98 F 97.6 F Pulse Rate 77 Pulse Rate [Left P ulse Oximeter] 98 68 Respiratory Rate 20 16 Blood Pressure [Le ft Arm] 131/78 126/73 Blood Pressure [Ri ght Arm] Pulse Oximetry 90 92 Oxygen Delivery Me thod Room Air Nasal Cannula Oxygen Flow Rate 1 DS: Data Data Completed and Pending Completed studies during hospitalization: 01/04/2023 echocardiogram: Normal LV size, not well visualized wall thickness, hyperdynamic global systolic function with an estimated EF of greater than 75%. Severely enlarged left atrium. Right ventricular cavity size is normal, global systolic RV function is mildly reduced. Aortic valve is sclerotic, no stenosis and mild regurgitation. There is moderate mitral stenosis mean gradient 8-10 mm Hg at 80-110 beats per minute. Mitral valve is sclerotic, mild mitral regurgitation. Moderately increased estimated pulmonary pressures by tricuspid regurgitation velocity and right atrial pressure (49 mm Hg plus RAP). No pericardial effusion. 01/04/2023 EKG: Atrial fibrillation with rapid ventricular response, heart rate 147 beats per minute. Abnormal EKG. Ordering Physician: Nadja Shrestha M.D. Date of Service: 01/04/23 Procedure(s): XR chest 1V portable Accession Number(s): [id number] cc: Nadja Shrestha M.D.; Marry Cobb M.D.~ For Patients: As a result of the Cures Act, medical imaging exams and procedure reports are released immediately into your electronic medical record. You may view this report before your referring provider. If you have questions, please contact your health care provider. INDICATION: sob, afib w/ rvr, copd. TECHNIQUE: Chest 1 view. COMPARISON: None. FINDINGS: Cardiovascular and mediastinum: Cardiomediastinal silhouette is within normal limits. Calcific atherosclerosis of the aorta. Lungs and pleural spaces: bibasilar airspace opacities. Perihilar interstitial opacities. Small bilateral pleural effusions. No pneumothorax identified. Bones and soft tissues: Unremarkable for age. IMPRESSION: Bibasilar opacities may reflect aspiration, infection or atelectasis. Small bilateral pleural effusions. Bilateral airspace opacities may reflect edema, or viral infection. Dictated by Ibeth Doll MD @ 01/04/2023 12:15:18 PM (Electronically Signed) Ordering Physician: Nadja Shrestha M.D. Date of Service: 01/04/23 Procedure(s): CT chest wo con Accession Number(s): [id number] cc: Nadja Shrestha M.D.; Marry Cobb M.D.~ For Patients: As a result of the Cures Act, medical imaging exams and procedure reports are released immediately into your electronic medical record. You may view this report before your referring provider. If you have questions, please contact your health care provider. INDICATION: Chronic obstructive pulmonary disease, atrial fibrillation and shortness of breath. TECHNIQUE: Axial images were obtained from the thoracic inlet to the diaphragm. Reformats: Coronal and sagittal IV Contrast: None COMPARISON: Chest CT 12/10/2019 FINDINGS: Mediastinum: Thoracic aorta is normal in caliber with atherosclerotic calcification. Dilation of the main pulmonary artery centrally. Pretracheal lymph nodes measure up to 11 millimeters in short axis. High right paratracheal lymph nodes measure 10 millimeters and AP window lymph nodes measure up to 14 millimeters. Calcified right hilar lymph node. Lungs and Pleural Space: Small bilateral pleural effusions within the dependent portion of the hemithoraces. Centrilobular emphysema. Bronchial wall thickening with some interlobular septal thickening in the lung bases. Chest wall: No masses. Upper abdomen: Normal. Bones: Unremarkable for age. IMPRESSION: 1. Small bilateral pleural effusions with interlobular septal thickening in the lung bases consistent with pulmonary edema. 2. Underlying moderate centrilobular emphysema. 3. Mediastinal lymphadenopathy, similar to the prior examination. Please note that all CT scans at this facility use dose modulation, iterative reconstruction, and/or weight-based dosing when appropriate to reduce radiation dose to as low as reasonably achievable. Dictated by Crow Kaplan MD @ 01/04/2023 1:25:47 PM (Electronically Signed) Labs on day of discharge: Labs from last 24 hours 01/09/23 01/09/23 06:05 05:55 INR 2.21 H Sodium 132 L Potassium 3.8 Chloride 100 Carbon Dioxide 36 H Anion Gap -4 L BUN 20 Creatinine 0.6 Estimated Creat Clear 42.07 Estimated GFR 95 Glucose 100 Calcium 8.6 Discharge Plan Discharge Disposition: Home, Self-Care Date of Admission: 01/04/23 12:42 Attending Provider on Discharge: Maye Soto Primary Care Provider: Marry Cobb Condition: Improved Anticipated Discharge Date/Time: 01/09/23 09:30 Discharge Medications: New diltiazem HCl 240 mg Capsule,Extended Release 24hr 240 mg PO BID Qty: 60 0RF furosemide 40 mg Tablet 80 mg PO DAILY@0800 Qty: 60 0RF metoprolol succinate 50 mg Tablet Extended Release 24 Hr 50 mg PO BID Qty: 60 0RF prednisone 20 mg Tablet 40 mg PO DAILYWM Qty: 4 0RF digoxin 250 mcg (0.25 mg) Tablet 125 mcg PO DAILY Qty: 30 0RF Continued atorvastatin 80 mg tablet 80 mg PO HS warfarin 5 mg tablet 5 mg PO .MO,TH albuterol sulfate 90 mcg/actuation HFA aerosol inhaler 2 puff INHALATION Q4H PRN (Reason: wheezing) fluticasone propion-salmeterol [Advair Diskus] 250-50 mcg/dose blister with device 1 ea INHALATION Q12H gabapentin 300 mg capsule 300 mg PO 3XD warfarin 2.5 mg tablet 2.5 mg PO .VERA,TU,WE,FR,SA Changed ipratropium-albuterol 0.5 mg-3 mg(2.5 mg base)/3 mL solution for nebulization 3 ml inhalation QID PRN (Reason: shortness of breath) Qty: 90 0RF Discontinued diltiazem HCl 240 mg capsule,extended release 24hr 240 mg PO DAILY bisoprolol fumarate 5 mg tablet 2.5 mg PO DAILY budesonide 1 mg/2 mL suspension for nebulization 1 mg inhalation BID Discharge Orders: Discharge Order (Routine); Ordered 01/09/23 Ordered By: Maye Soto Patient Education: Metoprolol (By mouth), Diltiazem (By mouth), Digoxin (By valentin th), Furosemide (By mouth), Prednisone (By mouth), Heart Failure (DC), A-fib (Atrial Fibrillation) (DC), How to Stop Smoking (DC), Chronic Bronchitis (DC) Additional Instructions: - Verify patient's appt with Dr. Gu at [facility] this Saturday. INR, BMP, digoxin level at that visit. - Cardiology in 2 weeks. - I recommend you quit smoking. If you continue to smoke, COPD will worsen more quickly. If you need help quitting, please speak with your PCP. - Weigh yourself every morning on the same scale when you get up, after use the bathroom, before you eat. Wear similar clothing each time you weigh yourself. Keep track of your weight. Call your doctor if you gain more than 2 pounds in a day, or 5 pounds in a week. Activity Level: No Restrictions Discharge Diet: 2 gm Sodium and 2000 ml Fluid Restriction Follow Up Appointments: Lacey Gu DO [Referring] - 01/11/23 10:40 am ([facility] for follow-up.) Marry Cobb MD [Primary Care Provider] - Forms: [employer] Info Instructions
[2023-01-09 08:21] VITALS: PULSE 85
[2023-01-09] MEDS: FUROSEMIDE 40 MG TABLET 80 MG PO (08:21)
[2023-01-09] MEDS: predniSONE 20 MG TABLET 40 MG PO (08:21)
[2023-01-09] MEDS: DIGOXIN 250 MCG TABLET 125 MCG PO (08:21)
[2023-01-09] MEDS: METOPROLOL SUCCINATE (XL) 50 MG TAB PO (08:22)
[2023-01-09] MEDS: GABAPENTIN 300 MG CAPSULE PO (08:22)
[2023-01-09] MEDS: dilTIAZem 240 MG CAP (CD) PO (08:23)
[2023-01-09] MEDS: BUDESONIDE 0.5 MG/2ML NEB 1 MG NEB (08:28)
--- NOTE | 2023-01-09 11:19 | RESP.RT ---
Addendum entered by Dejuan Avalos, BOOKMOBILE LIBRARIAN, RECRUITER MANAGER 01/09/23 11:25: Patient also had questions on use of Advair, discussed and answered questions patient had. Original Note: Patient had question on Home Oxygen use, discussed with patient, and use of Home CPAP. Patient had discussed Home Oxygen with Primary, and had questions. Explained, educated and answered question with Patient, and Patients Sister.
--- NOTE | 2023-01-09 12:16 | PC.NURSE ---
Discharge - Pt alert, oriented, and cooperative during shift. Pt expressed excitement at being able to discharge today. Family at bedside. Afebrile, VSS, no nausea, dizziness, SOB reported. Tolerating RA. Ambulating independently in room, up to bathroom. Continent of bowel and bladder. Discharge education provided, pt and family member verbalized understanding. Pt and family member voiced concerns regarding at home oxygen. RT notified, provided clarification and education regarding need to pt and family member with RN present. Pt verbalized understanding of instruction and encouraged to follow up with primary physician. Discharged to home with sister via wheelchair at approximately 11:05.
== END 2023-01-09 11:05 | disposition home or self-care (01) | DRG 308 ==
LOC: ED 12:09 → MEDSURG 12:19
PROVIDERS: Family Medicine; Admitting Provider Family Medicine; Emergency Provider Family Medicine; PCP Family Medicine; Visit Provider Family Medicine
DX: I48.20 Chronic atrial fibrillation, unspecified (principal); I50.31 Acute diastolic (congestive) heart failure; J44.1 Chronic obstructive pulmonary disease with (acute) exacerbation; I11.0 Hypertensive heart disease with heart failure; Z79.01 Long term (current) use of anticoagulants; F17.210 Nicotine dependence, cigarettes, uncomplicated; I95.9 Hypotension, unspecified; F10.90 Alcohol use, unspecified, uncomplicated; I08.3 Combined rheumatic disorders of mitral, aortic and tricuspid valves
CPT/HCPCS: 36415; 71045; 71250; 80048; 80053; 81001; 82803; 83605; 83735; 83880; 84145; 84484; 85025; 85027; 85610; 86140; 87086; 87631; 93005; 93306; 94640; 94664; 94761; 97110; 97112; 97116; 97162; 97165; 97535; 99285; A9270; J1160; J1940; J2930; J3490; J7030; J7512; J7626

== ENCOUNTER 2023-04-05 14:06 | Outpatient (CLI) | payer MEDICARE, BC, SELFPAY ==
--- OUTSIDE RECORDS SUMMARY | 2023-04-05 14:09 | XMS_ITS | Clinical Summary ---
Author Name Unknown Organization [facility] Address [place], [place] [address] Care Team Providers Care Dairy Technologist Name Role Phone Marry Cbob MD Primary Care Provider Kelechi Gong MD Unavailable [phone] Allergies No known active allergies Medications Medication Sig Dispensed Refills Start Date End Date Status miscellaneous medical supply miscIndications:Hype rtension, unspecified type As directed. 1 blood pressure cuff for home use. 1 Each 0 08/27/2019 Active atorvastatin (LIPITOR) 80 mg tabletIndications:Hy perlipidemia, unspecified hyperlipidemia type Take 1 Tablet (80 mg) by mouth at bedtime. 90 Tablet 3 10/30/2022 Active gabapentin (NEURONTIN) 300 mg capsuleIndications:P ost herpetic neuralgia Take 1 Capsule (300 mg) by mouth three times daily. 270 Capsule 1 10/30/2022 Active NebulizerIndications :COPD with chronic bronchitis Nebulizer, disposable neb kit x 4, reuseable neb kit x 1, mask x 1, filters x 1. Frequency of use: daily; Medication: duoneb and budesonide Length of need: 99 months 1 Each 0 12/21/2022 Active furosemide (LASIX) 40 mg tabletIndications:Co ngestive heart failure, unspecified HF chronicity, unspecified heart failure type (HC) Take 1 Tablet (40 mg) by mouth every morning. 90 Tablet 1 01/12/2023 Active albuterol HFA (PRO-AIR; VENTOLIN; PROVENTIL) 90 mcg/actuation inhalerIndications:C OPD with chronic bronchitis Inhale 2 Puffs by mouth every 4 hours if needed for Shortness Of Breath or Wheezing. 36 g 3 02/13/2023 Active albuterol-ipratropiu m (DUONEB) (2.5-0.5 mg) in 3 mL NEBULIZATION solutionIndications: COPD with chronic bronchitis Inhale 3 mL via a nebulizer 4 times daily. 90 mL 3 02/13/2023 Active budesonide (PULMiCORT) 1 mg/2 mL neb suspensionIndication s:COPD with chronic bronchitis Inhale 1 mg via a nebulizer two times daily. 60 mL 3 02/13/2023 Active metoprolol succinate (TOPROL XL) 50 mg sustained-release tabletIndications:HT N (hypertension) Take 1 Tablet (50 mg) by mouth two times daily. 180 Tablet 0 02/13/2023 Active digoxin (LANOXIN) 125 mcg (0.125 mg) tabletIndications:At rial fibrillation with RVR (HC) Take 1 Tablet (125 mcg) by mouth once daily. 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 Overview: 07/03/22: right lumbar back, Junctional nevus with severe atypia- needs excision Congestive heart failure, un specified HF chronicity, unspecified heart failure type 04/18/2021 Chronic obstructive pulmonary disease 04/18/2021 Atrial fibrillation with RVR 12/16/2019 Warfarin anticoagulation 12/16/2019 Anticoagulation monitoring, INR range 2-3 2019 History of colon polyps 01/06/2019 Overview: Colonoscopy diverticulosis, repeat in 5 years Hyperlipidemia 12/25/2016 Diabetes mellitus screening 12/25/2016 Biceps tendonitis, right 12/25/2016 Hyponatremia 01/29/2008 Hematochezia 01/29/2008 SAH (subarachnoid hemorrhage) 01/26/2008 Anemia, unspecified 01/26/2008 HTN (hypertension) 01/26/2008 Overview: Updated by system to replace inactive record Hyperglycemia 01/26/2008 Encounters Date Type Department Care Team Description 03/20/2023 12:45 PM PRODUCTION SCHEDULER Orders Only [facility] [address] [place] [address] Lab, [place] Lab 03/20/2023 Anticoagulation (warfarin) [facility] [address] [place] [address] 1, [place] [facility] Anticoagulation 03/20/2023 Travel 03/07/2023 Telephone [facility] [address] [place] [address] Marry Cobb MD Imaging 03/01/2023 Telephone [facility] [address] [place] [address] Marry Cobb MD Anticoagulation (Annual re-enrollment ) 02/27/2023 11:20 AM PRODUCTION SCHEDULER Orders Only [facility] [address] [place] [address] Lab[place] [facility] 02/27/2023 Anticoagulation (warfarin) [facility] [address] [place] [address] 1[facility] [place] [facility] Anticoagulation 02/27/2023 Travel 02/20/[address] [address] Marry Cobb MD Refill Request (Diltiazem Cd) 02/13/2023 8:20 AM PRODUCTION SCHEDULER Office Visit [facility] [address] [place] [address] Marry Cobb MD Hospital F/U 02/13/2023 Anticoagulation (warfarin) [facility] [address] [place] [address] 1[facility] [place] [facility] Anticoagulation 02/13/2023 Telephone [facility] [address] [place] [address] Marry Cobb MD Follow Up 02/13/2023 Travel 02/04/2023 Refill [facility] [address] [place] [address] Marry Cobb MD Refill Request (Metoprolol Succinate) 01/31/[address] [address] Marry Cobb MD Refill Request (Warfarin) 01/30/[address] [address] Lacey Gu, Form 01/25/2023 10:20 AM PRODUCTION SCHEDULER Orders Only [address] [address] Lab[place] [facility] 01/25/2023 Anticoagulation (warfarin) [address] [address] 1[place] [facility] Anticoagulation 01/25/2023 Travel 01/12/[address] [address] Marry Cobb MD Anticoagulation (Warfarin Dosing and INR Follow-Up Plan) 01/12/2023 Anticoagulation (warfarin) [address] [address] 1[place] [facility] Anticoagulation 01/11/2023 10:40 AM PRODUCTION SCHEDULER Office Visit [address] [address] Lacey Gu DO Hospital F/U (COPD f/u); Atrial Fibrillation; CHF 01/11/[address] [address] Lacey Gu DO oxygen supplies 01/11/2023 Travel 01/07/2023 Orders Only [facility] [address] [facility] [address] [place] [address] Marry Cobb MD <No scans attached> 01/04/2023 4:00 PM PRODUCTION SCHEDULER Orders Only [facility] [address] [facility] [place] [address] 2 scans: (2-Ord) ECHO TTE COMPLETE WO CONTRAST ([id number]) 01/04/2023 9:30 AM PRODUCTION SCHEDULER Nurse/Clinic Staff Only [facility] [address] [place] [address] Shortness Of Breath (See other encounter with data on telephone encounter) 01/04/2023 Orders Only [facility] Staff, Other Clinical 1 scan: (1-Ord) [facility], CT CHEST WO CON, 01/04/2023 01/04/2023 Travel 01/03/2023 Telephone [facility] [address] [place] [address] Lacey Gu, DO Questions (Came in for O2 sat check on RA. Patient 86% RA at rest and in afib with RVR) 01/03/2023 Telephone [facility] [address] [place] [address] Marry Cobb MD Questions from Last 3 Months Immunizations Name Administration Dates Next Due COVID-19 vaccine (Moderna 10 0mcg/0.5mL) YUSRA RAMIREZ 12/29/2020,05/26/2020,04/28/2020 Influenza, High-dose Inactivated 12/05/2019 Influenza, High-dose Quadriv alent Inactivated 12/29/2020 Influenza, IIV4 11/24/2015,12/15/2012 Influenza, Inactivated AIIV4 (Age 65+ Years) Preserv Free 02/13/2023,12/05/2021 Influenza, Inactivated IIV3 (Age 65+ Years) Preserv Free 10/18/2017,12/25/2016 Pneumococcal Poly,23-Valent (Pneumovax) 12/26/19 17 Pneumococcal conj 13-Valent (Prevnar 13) 016 Tdap 11/14/2007 Family History Medical History Relation Name Comments Coronary artery disease Brother s/p cabg Coronary artery disease Father trip le bypass Cancer-colon Mother Aneurysm Sister Heart Disease Sister valve issues Cancer-breast No Family History Cancer-ovarian No Family History Relation Name Status Comments Brother Alive Father Mother Alive Sister Alive Social History Tobacco Use Types Packs/Day Years Used Date Smoking Tobacco: Every Day Cigarettes 1 60.4 Started: 11/22/1962 Smokeless Tobacco: Never Tobacco Cessation:Ready to Q uit: Not Asked; Counseling Given: Not Answered Comments:down to about a quarter pack a day Alcohol Use Standard Drinks/Week Comments Not Currently 0 (1 standard drink = 0.6 oz pur e alcohol) PHQ-2 Answer Date Recorded PHQ-2 TOTAL SCORE 0 07/11/2022 Social Connections Answer Date Recorded Frequency of Communication with Friends and Fami ly 0 02/13/2023 Financial Resource Strain Answer Date R ecorded Difficulty of Paying Living Expenses 3 02/13/2023 Difficulty of Paying Living Expenses Not on file 02/13/2023 Food Insecurity Answer Date Recorded Worried About Running Out of Food in the Last Ye ar 1 02/13/2023 Transportation Needs Answer Date Record ed Lack of Transportation (Medical) 1 02/13/2023 Housing Stability Answer Date Recorded Unable to Pay for Housing in the Last Year 1 02/13/2023 Sex and Gender Information Value Date Recorded Sex Assigned at Not on file Gender Identity Not on file Sexual Orientation Not on file Obstetrics History Last Filed Vital Signs Vital Sign Reading Time Taken Comments Blood Pressure 99/66 02/13/2023 8:33 AM PRODUCTION SCHEDULER Pulse 75 02/13/2023 8:33 AM PRODUCTION SCHEDULER Temperature 36.4 ??C (97.5 ??F) 12/28/2022 10:46 AM C DT Respiratory Rate 18 03/22/2020 5:40 PM PRODUCTION SCHEDULER Oxygen Saturation 93% 02/13/2023 8:33 AM PRODUCTION SCHEDULER Inhaled Oxygen Concentration - - Weight 77.6 kg (171 lb) 02/13/2023 8:33 AM PRODUCTION SCHEDULER Height 160 cm (5' 3) 07/11/2022 10:33 AM CDT Body Mass Index 30.29 07/11/2022 10:33 AM CDT Plan of Treatment Upcoming Encounters Date Type Department Care Team (Late st Contact Info) Description 04/08/2023 2:30 PM PRODUCTION SCHEDULER Office Visit [facility] [address] [place] [address] Michelle Appiah MD [address] [place] [address] 04/25/2023 10:00 AM PRODUCTION SCHEDULER Orders Only [facility] [address] [place] [address] Lab[place] 05/01/2023 9:35 AM PRODUCTION SCHEDULER Office Visit [facility] [address] [place] [address] Marry Cobb MD [address] [place] [address] Health Maintenance Due Date Last Done Comments Zoster (shingles) series for age 50+ (1 of 2) 2000 Tetanus booster 11/13/2017 11/14/2007 COVID-19 vaccine series ( season) 2022 12/29/2020, 05/26/2020, 04/28/2020 BMI (ht and wt on same day) for age 18+ 07/12/2023 07/11/2022, 06/14/2022, 04/18/2021, Additional history exists Depression screening for age 12+ 07/12/2023 07/11/2022, 06/21/2022, 04/18/2021, Additional history exists Mammogram for age 45-75 07/12/2023 07/12/19 23, 05/01/2021, 12/29/2019, Additional history exists Medicare Wellness for age 65+ 07/12/2023, 04/18/2021, 07/25/2018, Additional history exists Low Dose CT (for lung CA) ag e 50-80 08/02/2023 08/01/2022 Colonoscopy through age 75 01/07/202401/06, 01/06/2019, 01/06/2019 Lipids for age 45-75 05/01/2026 05/01/2021, 04/27/2020, 10/21/2019, Additional history exists Tdap Completed 11/14/2007 Hepatitis C screening for ag e 18-79 Completed 12/25/2016, 12/25/2016 Pneumococcal series for age 65+ Completed 7, 11/24/2015 Fecal testing non-DNA (FIT,FOBT,iFOBT) for age 45-75 Discontinued 08/08/2017 DEXA/DXA scan for age 65+ Completed 10/31/2017 Influenza for age 65+ Completed 02/13/2023 , 12/05/2021, 12/29/2020, Additional history exists Procedures Procedure Name Priority Date/Time Associated Diagnosis Comments INR,POCT Routine 03/20/2023 12:42 PM PRODUCTION SCHEDULER Atrial fibrillation with RVR (HC) Anticoagulation monitoring, INR range 2-3 INR,POCT Routine 02/27/2023 11:26 AM PRODUCTION SCHEDULER Atrial fibrillation with RVR (HC) Anticoagulation monitoring, INR range 2-3 BASIC METABOLIC PANEL Routine 02/13/2023 9:24 AM PRODUCTION SCHEDULER Atrial fibrillation with RVR (HC) HTN (hypertension) HEMOGLOBIN A1C SCREENING Routine 02/13/2023 9:24 AM PRODUCTION SCHEDULER Hyperglycemia PROTIME-INR STAT 02/13/2023 9:24 AM PRODUCTION SCHEDULER Atrial fibrillation with RVR (HC) Anticoagulation monitoring, INR range 2-3 INR,POCT Routine 01/25/2023 10:29 AM PRODUCTION SCHEDULER Atrial fibrillation with RVR (HC) Anticoagulation monitoring, INR range 2-3 DIGOXIN Routine 01/11/2023 11:57 AM PRODUCTION SCHEDULER Atrial fibrillation with RVR (HC) BASIC METABOLIC PANEL Routine 01/11/2023 11:57 AM PRODUCTION SCHEDULER Atrial fibrillation with RVR (HC) PROTIME-INR Routine 01/11/2023 11:57 AM PRODUCTION SCHEDULER Anticoagulation monitoring, INR range 2-3 EKG 12 LEAD Routine 01/07/2023 1:56 PM PRODUCTION SCHEDULER Atrial fibrillation, unspecified type (HC) CO READING EKG - NO CHARGE, COMP ONLY Routine 01/07/2023 1:55 PM PRODUCTION SCHEDULER Atrial fibrillation, unspecified type (HC) ECHO TTE COMPLETE WO CONTRAST Routine 01/04/2023 6:01 PM PRODUCTION SCHEDULER A-fib (HC) SCAN-CT INTERPRETATION 12:[address] CHEST LOW DOSE WO FOR LUNG RADS 0 OR 3 FOLLOW UP Routine 01/04/2023 12:00 AM PRODUCTION SCHEDULER Lung nodules Smoker from Last 3 Months Results * (ABNORMAL) INR,POCT (03/20/2023 12:42 PM PRODUCTION SCHEDULER) Only the most recent of3 resultswithin the time period is included. INR 2.5(H) <1.3 03/20/2023 12:44 PM PRODUCTION SCHEDULER [facility] Blood BLOOD SPECIMEN / Unknown 03/20/2023 12:42 PM PRODUCTION SCHEDULER 03/20/2023 12:44 PM PRODUCTION SCHEDULER Narrative [facility] - 03/20/2023 12:44 PM PRODUCTION SCHEDULER ?Therapeutic Range 2.0-3.0 for most anticoagulated patients 2.5-3.5 or 4.0 for high risk patients Marry Cobb MD LABORATORY Performing Organization Address City/State/[facility] Co de Phone Number [facility] [address] [place] [address], * HEMOGLOBIN A1C SCREENING (02/13/2023 9:24 AM PRODUCTION SCHEDULER) HEMOGLOBIN A1C SCREENING 6.3 <=6.4 % 02/13/2023 5:21 PM PRODUCTION SCHEDULER [facility] Blood BLOOD SPECIMEN / Unknown Venipuncture / Unknown 02/13/2023 9:24 AM PRODUCTION SCHEDULER 02/13/2023 9:30 AM PRODUCTION SCHEDULER Narrative [facility] - 02/13/2023 5:21 PM PRODUCTION SCHEDULER ? (<5.7%) ?Normal ? (5.7% to 6.4%) ? Indicates prediabetes ? (>=6.5%) ? Confirms diabetes Falsely low levels may be seen with: Recent Transfusion, Recent Significant Blood Loss, Hemolytic Diseases, or Falsely elevated levels may be seen with: Untreated Anemias, Splenectomy Marry Cobb MD CHEMISTRY Performing Organization Address [facility] de Phone Number [facility] [address] [place] [id number], [place] * (ABNORMAL) PROTIME-INR (02/13/2023 9:24 AM PRODUCTION SCHEDULER) Only the most recent of2 resultswithin the time period is included. INR 2.9(H) <1.3 02/13/2023 3:20 PM PRODUCTION SCHEDULER [facility] PROTIME 31.4(H) 10.3 - 12.3 sec 02/13/2023 3:20 PM PRODUCTION SCHEDULER [facility] Blood BLOOD SPECIMEN / Unknown Venipuncture / Unknown 02/13/2023 9:24 AM PRODUCTION SCHEDULER 02/13/2023 9:36 AM PRODUCTION SCHEDULER Narrative [facility] - 02/13/2023 3:20 PM PRODUCTION SCHEDULER ?Therapeutic Range 2.0-3.0 for most anticoagulated patients 2.5-3.5 or 4.0 for high risk patients The INR is only used for patients on stable oral anticoagulant therapy. It makes no significant contribution to the diagnosis or treatment of patients whose Protime is prolonged for other reasons. INR results are increased when heparin levels exceed 1.0 U/mL, which corresponds to an aPTT >125 seconds if the patient is on UFH. Marry Cobb MD HEMATOLOGY Performing Organization Address [facility] de Phone Number [facility] [address] [place] [id number], [place] * (ABNORMAL) BASIC METABOLIC PANEL (02/13/2023 9:24 AM PRODUCTION SCHEDULER) Only the most recent of2 resultswithin the time period is included. SODIUM 140 136 - 145 mmol/L 02/13/2023 4:37 PM [facility] POTASSIUM 5.0 3.5 - 5.1 mmol/L 02/13/2023 4:37 PM [facility] CHLORIDE 102 98 - 107 mmol/L 02/13/2023 4:37 PM [facility] CO2,TOTAL 30(H) 22 - 29 mmol/L 02/13/2023 4:37 PM [facility] ANION GAP 8 5 - 18 02/13/2023 4:37 PM [facility] GLUCOSE 114(H) 70 - 99 mg/dL 02/13/2023 4:37 PM [facility] CALCIUM 9.4 8.8 - 10.2 mg/dL 02/13/2023 4:37 PM [facility] BUN 13 8 - 23 mg/dL 02/13/2023 4:37 PM [facility] CREATININE 0.64 0.50 - 0.90 mg/dL 02/13/2023 4:37 PM [facility] BUN/CREAT RATIO 20 10 - 20 4:37 PM [facility] eGFR >90 >90 mL/min/1.7 3m2 02/13/2023 4:37 PM [facility] Comment:As of 2021, eG FR is calculated by the CKD-EPI creatinine equation without race adjustment. ??eGFR can be influenced by muscle mass, exercise, and diet. ??The reported eGFR is an estimation only and is only applicable if the renal function is stable. Blood BLOOD SPECIMEN / Unknown Venipuncture / Unknown 02/13/2023 9:24 AM PRODUCTION SCHEDULER 02/13/2023 9:37 AM [facility] Marry Cobb MD CHEMISTRY Performing Organization Address [facility]/ZIP Co de Phone Number [facility] [address] [place] [address], * DIGOXIN (01/11/2023 11:57 AM PRODUCTION SCHEDULER) Pathologist [facility] DIGOXIN 0.8 0.8 - 2.0 ng/mL 01/11/2023 10:38 PM PRODUCTION SCHEDULER [facility] DATE OF LAST DOSE 01/11/2023 01/11/2023 10:38 PM PRODUCTION SCHEDULER [facility] TIME OF LAST DOSE 8:00 AM 01/11/2023 10:38 PM PRODUCTION SCHEDULER [facility] Blood BLOOD SPECIMEN / Unknown Venipuncture / Unknown 01/11/2023 11:57 AM PRODUCTION SCHEDULER 01/11/2023 11:58 AM PRODUCTION SCHEDULER Lacey Freida Amandat DO CHEMISTRY Performing Organization Address [facility] Co de Phone Number [facility] [address] [place] [id number], [place] * EKG 12 LEAD (01/07/2023 1:56 PM PRODUCTION SCHEDULER) Lacey Freida Amandat DO EKG ORD * CO READING EKG - NO CHARGE, COMP ONLY (01/07/2023 1:55 PM PRODUCTION SCHEDULER) Lacey Freida Amandat DO PB - PROVIDER READI NGS * ECHO TTE COMPLETE WO CONTRAST (01/04/2023 6:01 PM PRODUCTION SCHEDULER) Pathologist [facility] AORTIC VALVE MEAN PG 4 mmHg EJECTION FRACTION 80 % PEAK TR VELOCITY 3.5 m/s LVEDD 3.6 cm EJECTION FRACTION > 75% Anatomical Region Laterality Modality Ultrasound 01/04/2023 5:02 PM PRODUCTION SCHEDULER Narrative 01/04/2023 6:22 PM PRODUCTION SCHEDULER ECHOCARDIOGRAM NICKY CHERY ? Accession#: ?? [id number] : ?1950 72 years Study Date: ?? 01/04/2023 5:02:19 PM Gender: F ?BP: ? 111/81 mmHg Height: 160.00 cm ?BSA: ?1.83 m? ? ? Weight: 80.00 kg ? Tech: ? MTS ? Referring MD: BONNIE MCMILLAN Site: ? [facility] Reading Location: [facility] Patient Location: Inpatient. Procedure: 2D, Color Doppler and Spectral Doppler. Indication for study: A-fib (HC) Cardiac Rhythm: Irregular.Study quality: Fair. Imaging limitations: This study was subject to imaging limitations due to a prominent lung artifact. Final Impressions: 1. Normal LV size, not well visualized wall thickness, hyperdynamic global systolic function with an estimated EF of > 75%. 2. Severely enlarged left atrium. 3. Right ventricular cavity size is normal, global systolic RV function is mildly reduced. 4. The aortic valve is sclerotic, no stenosis and mild regurgitation. 5. There is moderate mitral stenosis mean gradient 8-10mmHg at 80-110bpm. Mitral valve is sclerotic, mild mitral regurgitation. 6. Moderately increased estimated pulmonary pressures by tricuspid regurgitation velocity and right atrial pressure (49 mmHg plus RAP). 7. No pericardial effusion. Chamber Sizes and Function Normal left ventricular size, not well visualized wall thickness, hyperdynamic global systolic function with an estimated EF of > 75%. Left ventricular wall motion not well visualized. Left atrial size is severely enlarged. Right ventricular cavity size is normal, global systolic RV function is mildly reduced. RV wall thickness is normal. The right atrium is normal. Right atrial volume index is 23 ml/m? ? ?. Right atrial area is 16 cm? ? ?. The pulmonary artery is of normal size and origin. The sinus of Valsalva is normal sized. The ascending aorta is normal sized. Valves, RV Pressures and Diastolic Function The aortic valve is sclerotic, no stenosis and mild regurgitation. The mitral valve is sclerotic, mild mitral regurgitation. Moderate mitral annular calcification is present. Indeterminate pattern of LV diastolic filling. The tricuspid valve is normal in structure. Tricuspid regurgitation is mild regurgitation. The tricuspid regurgitant velocity is 3.5 m/s, the estimated right ventricular systolic pressure is 49 mmHg plus right atrial pressure. There is moderately increased estimated pulmonary pressure by tricuspid regurgitation velocity and right atrial pressure. The pulmonic valve is normal. Mild pulmonary regurgitation. Masses, Effusion, Shunts There is no pericardial effusion. The inferior vena cava is dilated, respiratory size variation not well visualized. No left to right shunting was detected by limited color flow Doppler interrogation of the interatrial septum. MEASUREMENTS AND CALCULATIONS 2-D Measurements and LV Function: LVID (d) 3.6 cm LV FS% (2D) ?? 57 % LVID (s) 1.6 cm LVOT diameter 2.0 cm IVS (d) ??0.9 cm HR ?120 bpm LVPW (d) 1.0 cm RA Vol index ??23 ml/m2 Ao Sinus 3.0 cm RA area ? 16 cm? ? ? LA ? 4.0 cm RV Max 4C (d) 3.0 cm Diastology: Mitral E Peak 2.3 m/s DT ? 385 msec Aortic Valve: Vmax ? 1.4 m/s ??KANE (V) ?? 2.20 cm? ? ? VTI ?0.25 m ?? KANE (I) ?? 1.76 cm? ? ? LVOT V max 1.0 m/s ??Max PG ?8 mmHg LVOT VTI ?? 0.14 m ?? Mean PG ?? 4 mmHg SV ? 43 ml ?Dim Index 0.58 SV index ?? 24 ml/m? ? ? CO ?5.2 l/min ?CI ?2.8 l/min/m? ? ? Mitral Valve: MVA ? 2.0 cm? ? ? MV P 1/2 ??112 msec MV Mean G 10 mmHg MV VTI ?0.43 m Tricuspid Valve and estimated PA pressures: TR Vmax 3.5 m/s TAPSE 1.8 cm TR maxG 49 mmHg . This study was interpreted by an [facility] accredited facility. CC: HIM (med records) [facility], Med/Surg - IP [facility]. ??Final ?? Procedure Note Jass Navarro MD - 01/04/2023 ECHOCARDIOGRAM NICKY CHERY : 1950 72 years Study Date: 01/04/2023 5:02:19 PM Gender: F BP: 111/81 mmHg Height: 160.00 cm BSA: 1.83 m? ? ? Weight: 80.00 kg Tech: [facility] Referring MD: BONNIE MCMILLAN Site: [facility] Reading Location: [facility] Patient Location: Inpatient. Procedure: 2D, Color Doppler and Spectral Doppler. Indication for study: A-fib (HC) Cardiac Rhythm: Irregular.Study quality: Fair. Imaging limitations: This study was subject to imaging limitations due toa prominent lung artifact. Final Impressions: 1. Normal LV size, not well visualized wall thickness, hyperdynamicglobal systolic function with an estimated EF of > 75%. 2. Severely enlarged left atrium. 3. Right ventricular cavity size is normal, global systolic RV functionis mildly reduced. 4. The aortic valve is sclerotic, no stenosis and mild regurgitation. 5. There is moderate mitral stenosis mean gradient 8-10mmHg at 80-110bpm.Mitral valve is sclerotic, mild mitral regurgitation. 6. Moderately increased estimated pulmonary pressures by tricuspidregurgitation velocity and right atrial pressure (49 mmHg plus RAP). 7. No pericardial effusion. Chamber Sizes and Function Normal left ventricular size, not well visualized wall thickness,hyperdynamic global systolic function with an estimated EF of > 75%. Leftventricular wall motion not well visualized. Left atrial size is severelyenlarged. Right ventricular cavity size is normal, global systolic RVfunction is mildly reduced. RV wall thickness is normal. The right atriumis normal. Right atrial volume index is 23 ml/m? ? ?. Right atrial area is 16cm? ? ?. The pulmonary artery is of normal size and origin. The sinus ofValsalva is normal sized. The ascending aorta is normal sized. Valves, RV Pressures and Diastolic Function The aortic valve is sclerotic, no stenosis and mild regurgitation. Themitral valve is sclerotic, mild mitral regurgitation. Moderate mitralannular calcification is present. Indeterminate pattern of LV diastolicfilling. The tricuspid valve is normal in structure. Tricuspidregurgitation is mild regurgitation. The tricuspid regurgitant velocity is3.5 m/s, the estimated right ventricular systolic pressure is 49 mmHg plusright atrial pressure. There is moderately increased estimated pulmonarypressure by tricuspid regurgitation velocity and right atrial pressure.The pulmonic valve is normal. Mild pulmonary regurgitation. Masses, Effusion, Shunts There is no pericardial effusion. The inferior vena cava is dilated,respiratory size variation not well visualized. No left to right shuntingwas detected by limited color flow Doppler interrogation of theinteratrial septum. MEASUREMENTS AND CALCULATIONS 2-D Measurements and LV Function: LVID (d) 3.6 cm LV FS% (2D) 57 % LVID (s) 1.6 cm LVOT diameter 2.0 cm IVS (d) 0.9 cm HR 120 bpm LVPW (d) 1.0 cm RA Vol index 23 ml/m2 Ao Sinus 3.0 cm RA area 16 cm? ? ? LA 4.0 cm RV Max 4C (d) 3.0 cm Diastology: Mitral E Peak 2.3 m/s DT 385 msec Aortic Valve: Vmax 1.4 m/s KANE (V) 2.20 cm? ? ? VTI 0.25 m KANE (I) 1.76 cm? ? ? LVOT V max 1.0 m/s Max PG 8 mmHg LVOT VTI 0.14 m Mean PG 4 mmHg SV 43 ml Dim Index 0.58 SV index 24 ml/m? ? ? CO 5.2 l/min CI 2.8 l/min/m? ? ? Mitral Valve: MVA 2.0 cm? ? ? MV P 1/2 112 msec MV Mean G 10 mmHg MV VTI 0.43 m Tricuspid Valve and estimated PA pressures: TR Vmax 3.5 m/s TAPSE 1.8 cm TR maxG 49 mmHg . This study was interpreted by an [facility] accredited facility. CC: HIM (med records) [facility], Med/Surg - IP [facility]. Final Bonnie Mcmillan MD ECHO ORD * CT CHEST LOW DOSE WO FOR LUNG RADS 3 FOLLOW UP (01/04/2023 12:00 AM PRODUCTION SCHEDULER) Anatomical Region Laterality Modality Computed Tomogra phy Marry Cobb MD CT * SCAN-CT INTERPRETATION (01/04/2023 12:00 AM PRODUCTION SCHEDULER) Anatomical Region Laterality Modality Other Narrative 01/04/2023 12:00 AM PRODUCTION SCHEDULER Ordered by an unspecified provider. Other Clinical Staff OTHER from Last 3 Months Advance Directives Latest Code Status on File Code Status Date Activated Date Inactivated Comments Full Code 03/22/2020 3:31 PM 03/22/2020 7:57 PM Question Answer Comments Code Status Discussion: Not Discussed Code Status History Code Status Date Activated Date Inactivated Comments Full Code 01/24/2008 10:27 AM 02/04/2008 8:30 PM Care Teams Dairy Technologist Relationship Specialty Start Date End Date Marry Cobb MD [address] [place] [address] PCP - General Family Practice 12/25/16 Kelechi Gong MD [address] [place] [phone] Gynecology 02/03/20
--- NOTE | 2023-04-05 14:30 | CRLHL7_ITS ---
For Patients: As a result of the Century Cures Act, medical imaging exams and procedure reports are released immediately into your electronic medical record. You may view this report before your referring provider. If you have questions, please contact your health care provider. CLINICAL HISTORY: Patient with cerebral aneurysm. TECHNIQUE: 3D TOF MRA of the head was performed. 3D MIP reformats were performed at an independent workstation. COMPARISON: 04/17/2018. 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 There are no new aneurysms. The rest of the intracranial vasculature is unremarkable. 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 A follow-up MRA of the head will be obtained in December 2027, 20 years after treatment. Dictated by Carlos Sheriff MD @ 04/05/2023 3:18:15 PM (Electronically Signed)
== END 2023-04-05 14:07 | disposition home or self-care (01) ==
LOC: MRI 14:07
PROVIDERS: PCP Family Medicine; Visit Provider Radiology Neuroradiology
DX: I67.1 Cerebral aneurysm, nonruptured (principal)
CPT/HCPCS: 70544

== ENCOUNTER 2024-03-20 12:03 | Outpatient (CLI) | payer MEDICARE, BC, SELFPAY ==
--- NOTE | 2024-03-20 13:22 | P.ANES_ITS ---
Anesthesia Charges Start Date/Time Anesthesia Start Date: 03/20/24 Anesthesia Start Time: 12:55 Stop Date/Time Anesthesia Stop Date: 03/20/24 Anesthesia Stop Time: 13:21 Summary Extremes of Age - Over 70 or under 1: RESPOOLER Coding CPT Codes CPT Codes: ANES LWR INTST NDSC NOS - 25243 ([id number]) P3 - PATIENT W/SEVERE SYS DISEASE, QK - APPAREL PATTERNMAKER 2-4 CNCRNT ANES PROC, QX - RESPOOLER SVC W/ MD MED DIRECTION Additional Codes: Summary - Extremes of Age - Over 70 or under 1: RESPOOLER ([id number])
--- NOTE | 2024-03-20 13:22 | W.ANESCHARGE ---
Anesthesia Charges Start Date/Time Anesthesia Start Date: 03/20/24 Anesthesia Start Time: 12:55 Stop Date/Time Anesthesia Stop Date: 03/20/24 Anesthesia Stop Time: 13:21 Summary Extremes of Age - Over 70 or under 1: SHIFT SUPERVISOR MELTING Coding CPT Codes CPT Codes: ANES LWR INTST NDSC NOS - 22761 ([id number]) P3 - PATIENT W/SEVERE SYS DISEASE, QK - RETAIL OFFICE ASSOCIATE 2-4 CNCRNT ANES PROC, QX - SHIFT SUPERVISOR MELTING SVC W/ MD MED DIRECTION Additional Codes: Summary - Extremes of Age - Over 70 or under 1: SHIFT SUPERVISOR MELTING ([id number])
--- NOTE | 2024-03-20 13:26 | W.ANESCHARGE ---
Anesthesia Charges Start Date/Time Anesthesia Start Date: 03/20/24 Anesthesia Start Time: 12:55 Stop Date/Time Anesthesia Stop Date: 03/20/24 Anesthesia Stop Time: 13:21 Summary Extremes of Age - Over 70 or under 1: MDA Coding CPT Codes CPT Codes: ANES LWR INTST NDSC NOS - 09481 ([id number]) QK - CHECKER BAKERY PRODUCTS 2-4 CNCRNT ANES PROC, QX - SPEEDER FRAME TENDER SVC W/ MD MED DIRECTION, P3 - PATIENT W/SEVERE SYS DISEASE Additional Codes: Summary - Extremes of Age - Over 70 or under 1: MDA ([id number])
== END 2024-03-20 12:04 | disposition home or self-care (01) ==
LOC: OP CLINIC 12:04
PROVIDERS: PCP Family Medicine; Visit Provider Internal Medicine Gastroenterology
DX: Z12.11 Encounter for screening for malignant neoplasm of colon (principal); D12.0 Benign neoplasm of cecum; D12.2 Benign neoplasm of ascending colon; Z80.0 Family history of malignant neoplasm of digestive organs
CPT/HCPCS: 00811; 45380; 45385; 88305; 99100; J2704

== ENCOUNTER 2025-02-13 09:33 | Observation (INO) | payer MEDICARE, BC, SELFPAY ==
[2025-02-13] VITALS (46 sets, daily range): BP systolic 114–157; BP diastolic 64–107; PULSE 79–109; RESP 12–30; TEMP 36.6–37.4; O2SAT 84–96; BMI 34.7
--- OUTSIDE RECORDS SUMMARY | 2025-02-13 09:35 | XMS_ITS | Clinical Summary ---
Author Organization [facility] Address [address] [place] [address] Care Team Providers Care Donor Services Technician Name Role Phone Marry Cobb MD Primary Care Provider [phone] Kelechi Gong MD Unavailable Unavailable Allergies No known active allergies Medications MedicationSigDispense QuantityRefillsLast FilledStart DateEnd DateStatus miscellaneous medical supply misc Indications:Hypertension, unspecified typeAs directed. 1 blood pressure cuff for home use. 1 Each 08/27/2019Active Nebulizer Indications:COPD with chronic bronchitis (HC)Nebulizer, disposable neb kit x 4, reuseable neb kit x 1, mask x 1, filters x 1. Frequency of use: daily; Medication: duoneb and budesonide Length of need: 99 months 1 Each 3Active jq-sla-FP-vit L-tbmsit-zkqoipe (PreserVision AREDS 2 Plus MV) 200 mcg-15 mcg- 5 mg-1 mg cap Take by mouth two times daily.4Active diclofenac sodium-menthoL 1.5-10 % cmpk Apply topically to affected area(s).5Active Graduated Compression Stockings Indications:Varicose veins of both lower extremities, unspecified whether complicatedFor personal use. Length: calf Strength: 20-30 mmHg. Please measure. 1 Packet 5Active digoxin (LANOXIN) 125 mcg (0.125 mg) tablet Indications:Atrial fibrillation with RVR (HC)TAKE ONE TABLET BY MOUTH ONE TIME DAILY 90 Tablet 5Active furosemide (LASIX) 40 mg tablet Indications:Atrial fibrillation with RVR (HC),Congestive heart failure, unspecified HF chronicity, unspecified heart failure type (HC)Take 1 Tablet (40 mg) by mouth once daily in the morning. Additional refills granted after appointment in September 2024. 90 Tablet 5Active atorvastatin (LIPITOR) 80 mg tablet Indications:Hyperlipidemia, unspecified hyperlipidemia typeTake 1 Tablet (80 mg) by mouth at bedtime. 90 Tablet 5Active metoprolol succinate (TOPROL XL) 50 mg sustained-release tablet Indications:HTN (hypertension)Take 1 Tablet (50 mg) by mouth two times daily. 180 Tablet 5Active gabapentin (NEURONTIN) 300 mg capsule Indications:Post herpetic neuralgiaTake 1 Capsule (300 mg) by mouth three times daily. 270 Capsule 5Active dilTIAZem CD (CARDIZEM CD) 240 mg extended release 24 hr capsule Indications:Permanent atrial fibrillation (HC)Take 1 Capsule (240 mg) by mouth two times daily. 180 Capsule 5Active albuterol-ipratropium (DUONEB) (2.5 mg-0.5 mg)/3 mL NEBULIZATION solution Indications:COPD with chronic bronchitis (HC)Inhale 3 mL via a nebulizer 4 times daily. 90 mL 5Active albuterol HFA (PRO-AIR; VENTOLIN; PROVENTIL) 90 mcg/actuation inhaler Indications:COPD with chronic bronchitis (HC)Inhale 2 Puffs by mouth every 4 hours if needed for Shortness Of Breath or Wheezing. 36 g 5Active predniSONE (DELTASONE) 20 mg tablet Take 1 Tablet by mouth two times daily.5Active benzonatate (TESSALON) 100 mg capsule Take 1 Capsule by mouth every 8 hours if needed for Cough.5Active amoxicillin-clavulanate (AUGMENTIN) 875-125 mg tablet Take 1 Tablet by mouth two times daily.5Active budesonide-formoteroL (SYMBICORT,BREYNA) 160-4.5 mcg/actuation (160-4.5 mcg each actuation) inhaler Indications:Chronic obstructive pulmonary disease with emphysema, unspecified emphysema type (HC)Inhale 2 puffs twice daily. Max 12 puffs per day. 1 Each 5Active warfarin (COUMADIN) 2.5 mg tablet Indications:Anticoagulation monitoring, INR range 2-3,Atrial fibrillation with RVR (HC)Take by mouth 1.25mg Wed; 2.5 mg all other days in the evening OR as fxquzsim31/26/2025Active warfarin (COUMADIN) 2.5 mg tablet Indications:Anticoagulation monitoring, INR range 2-3,Atrial fibrillation with RVR (HC)Take by mouth 2.5 mg every day in the evening OR as directed 90 Tablet 5103/22/2024Discontinued(Reorder (E-cancel not sent)) Active Problems ProblemNoted DateDiagnosed DatePost herpetic stlpcdqxa52/15/2025Type 2 diabetes mellitus without complication, without long-term current use of insulin 5Colon polyp03/25/2024 Overview (03/25/2024): Colonoscopy 02/2024 TA, repeat in 5 years Adrenal jnyjgt104Atypical nevi07/09/2022 Overview (07/09/2022): 07/03/22: right lumbar back, Junctional nevus with severe atypia- needs excision Congestive heart failure, unspecified HF chronicity, unspecified heart failure type2Chronic obstructive pulmonary zsjjxyr2504/18/2021Longstanding persistent atrial /21/2020Warfarin ndibqackztuzper47/21/2020 Anticoagulation monitoring, INR range 2-310History of colon polyps 01/06/2019 Overview (01/06/2019): Colonoscopy diverticulosis, repeat in 5 years Algvlavugmpdeu35/31/2017Diabetes mellitus xbhthvvci55/31/2017Biceps tendonitis, right12/25/20169624Uyronknqkeov97/04/5175Vnzwqozwpsrh99/04/2008SAH (subarachnoid hemorrhage)01/26/2008nemia, ydzwqfulbum20/01/2008HTN (hypertension)01/26/2008 Overview (05/10/2009): Updated by system to replace inactive record Tnanxngdjmsaj19/01/2008 Encounters DateTypeDepartmentCare UlspHkkmdcmkbag38/04/2025nticoagulation (warfarin) [facility] [address] [facility] [address] Nurse, Ahg Anticoag Usnxzojqddwtuzb54/03/2025 2:45 PM CSTOrders Only [facility] [address] [place] [address] [place] Lab01/27/20256803Bomrtx30/25/2025 2:15 PM CSTOrders Only [facility] [address] [place] [address] [place] <No scans attached>01/19/2025nticoagulation (warfarin) [facility] [address] [place] [address] Nurse, g Anticoag Ekguvnmbcaglupk47/25/6897Jpsocb02/17/2025Orders Only [facility] Scanner 1 scan: (1-Ord) INCOMING RECORDS-EKG, [facility], Orders Only [facility] Scanner 1 scan: (1-Ord) INCOMING RECORDS-LABS, [facility], 1:25 PM CSTOffice Visit [facility] [address] [place] [address] Lacey Gu, DO Follow Up (cough- SOB)01/06/20250786Pnlubj51/08/2025Orders Only [facility] Scanner 1 scan: (1-Ord) Orders Only [facility] Scanner 1 scan: (1-Ord) MARIA ESTHER, CHEST 2V, Orders Only [facility] Scanner 1 scan: (1-Ord) MARIA ESTHER, MULTIPLE RESULTS, Orders Only [facility] Scanner 1 scan: (1-Ord) MARIA ESTHER H+C, Orders Only [facility] Scanner 1 scan: (1-Ord) [place] [facility], CHEST, 5103/04/2024Orders Only [facility] Scanner 1 scan: (1-Ord) [place] [facility], RESULTS, 11:30 AM DIESEL TRACTOR OPERATOR Ancillary Procedure [facility] [address] [place] [address] 12/30/2024 11:00 AM CSTAncillary Procedure [facility] [address] [place] [address] 12/30/20240886Vksppo35/16/2025nticoagulation (warfarin) [address] [address] Nurse, Candy Anticoag Xsuqiazxbbxbgdx29/15/2025 12:45 PM CDTOffice Visit [address] [address] Marry Cobb MD Medicare ANNUAL (subsequent) Visit (74 year old); Derm Problem (Right palm) 12/09/20241634Xhfmec98/10/2025Refill [facility] [address] [place] [address] [place] [phone] Gray Cleary MD Refill Request (Furosemide)12/04/2024Refill [facility] [address] [place] [address] Marry Cobb MD Refill Request (Warfarin, Gabapentin)11/23/2024Refill [address] [address] Marry Cobb MD Refill Request (Diltiazem Cd)11/20/2024Refill [address] [address] Marry Cobb MD Refill Request (Diltiazem Cd)from Last 3 Months Immunizations ImmunizationAdministration DatesNext DueCOVID-19 vaccine (Moderna 100mcg/0.5mL) MD JAMESV102/29/2020,05/26/2020,04/28/2020Influenza, High-dose Inactivated 12/05/2019Influenza, High-dose Quadrivalent Rjvtcnlgsjk80/04/2021Influenza, IIV4 11/24/2015,12/15/2012Influenza, Inactivated AIIV4 (Age 65+ Years) Preserv Free 02/13/2023,12/05/2021Influenza, Inactivated IIV3 (Age 65+ Years) Preserv Free 12/09/2024,12/06/2023,10/18/2017,12/25/2016Pneumococcal Poly,23-Valent (Pneumovax)12/25/2016Pneumococcal conj 13-Valent (Prevnar 13)11/24/2015Tdap 11/14/2007 Family History Medical HistoryRelationNameCommentsCoronary artery diseaseBrothers/p cabg Coronary artery diseaseFathertriple bypassCancer-colonMotherAneurysmSisterHeart DiseaseSistervalve issuesCancer-breastNo Family HistoryCancer-ovarianNo Family HistoryRelationNameStatusCommentsBrotherAliveFatherDeceasedMotherAliveSister Alive Social History Tobacco UseTypesPacks/DayYears UsedDateSmoking Tobacco: NrcwbxVccrkrtsct385.3 11/22/1962 - 02/24/2023Smokeless Tobacco: Never Tobacco Cessation:Counseling Given: Not Answered Comments:Quit smoking 02/2023 Alcohol UseStandard Drinks/WeekCommentsYes0 (1 standard drink = 0.6 oz pure alcohol)rarePHQ-2AnswerDate RecordedPHQ-2 TOTAL YXFEX951Social ConnectionsAnswerDate RecordedDo you often feel lonely or isolated from those around you?lcohol UseAnswerDate RecordedHow often do you have a drink containing alcohol?How many drinks containing alcohol do you have on a typical day when you are drinking?How often do you have five or more drinks on one occasion?Financial Resource StrainAnswer Date RecordedDifficulty of Paying Living Kexgflxm116/30/2025Difficulty of Paying Living ExpensesNot on file06/24/2024Food InsecurityAnswerDate RecordedDo you worry your food will run out before you are able to buy more? Transportation NeedsAnswerDate RecordedDoes lack of transportation keep you from medical appointments?Does lack of transportation keep you from work, meetings or getting things that you need?Housing StabilityAnswerDate RecordedWhat is your housing situation today?Interpersonal Safety AnswerDate RecordedAre you being hit, kicked, pushed or yelled at (see row info)?No04/16/2023Interpersonal Safety Abuse 12 - 18Not on file04/16/2023 Interpersonal Safety Ambulatory VulnerabilityNot on file04/16/2023Utilities AnswerDate RecordedDo you have trouble paying for utilities (for example, heat, electricity, water, phone)?CommentsNoSex and Gender InformationValueDate RecordedSex Assigned at BirthNot on fileLegal SexFemale 03/10/2012 6:29 AM CSTGender IdentityNot on fileSexual OrientationNot on file Last Filed Vital Signs Vital SignReadingTime TakenCommentsBlood Sfibwsnv096/8011 1:28 PM DIESEL TRACTOR OPERATOR Uijso383301/06/2025 1:28 PM OEWQgptryezbyz63.6 ??C (97.8 ??F)06/24/2024 2:59 PM CDTRespiratory Ltan903904/16/2023 2:00 PM CSTOxygen Smzfeynsuq14%01/06/2025 1:28 PM CSTInhaled Oxygen Concentration--Dmvwdg48.4 kg (192 lb 9.6 oz)01/06/2025 1:28 PM EJCMotery968 cm (5' 3)12/09/2024 12:53 PM CDTBody Mass Index34.121 12:53 PM CDT Plan of Treatment DateTypeDepartmentCare Team (Latest Contact Info)Ctliyhzmcgd62/30/2025 3:00 PM CSTOrders Only [facility] [address] [place] [address] [place] Health MaintenanceDue DateLast DoneCommentsRSV vaccine for adults or (1 - Risk 50-74 years 1-dose series)2000Zoster (shingles) series for age 50+ (1 of 2)2000Tetanus ogiakos91COVID-19 vaccine series (2024- season)/05/2020, 05/26/2020, 1Low Dose CT (for lung CA) age 50-800601/07/2024, 3BMI (ht and wt on same day) for age 18+, 10/14/2024, 03/11/2024, Additional history existsMedicare Wellness for age 65+, 12/06/2023, 07/11/2022, Additional history existsDepression screening for age 12+, 12/10/2024, 12/09/2024, Additional history existsMammogram for age 45-75 , 08/07/2023, 07/11/2022, Additional history exists Colonoscopy through age 750, 03/20/2024, 03/20/2024, Additional history existsLipids for age 45-75, 12/06/2023, 04/08/2023, Additional history existsHepatitis C screening for age 18-79 Fkmvfxmxn20/31/2017, 12/25/2016Pneumococcal series for age 50+Completed 12/25/2016, 11/24/2015Influenza BtoircjDdcpgyvwz29/15/2025, 12/06/2023, 02/13/2023, Additional history existsDEXA/DXA scan for age 65+Completed 12/30/2024, 10/31/2017Hepatitis B series for 19+Aged OutNo longer eligible based on patient's age to complete this topic Procedures Procedure NamePriorityDate/TimeAssociated DiagnosisCommentsPROTIME-INRRoutine 01/27/2025 2:39 PM DIESEL TRACTOR OPERATOR Longstanding persistent atrial fibrillation (HC) Anticoagulation monitoring, INR range 2-3 PROTIME-GBAJdenjno04/25/2025 2:24 PM DIESEL TRACTOR OPERATOR Longstanding persistent atrial fibrillation (HC) Anticoagulation monitoring, INR range 2-3 INR,NDXRMlotpzc83/25/2025 2:15 PM DIESEL TRACTOR OPERATOR Longstanding persistent atrial fibrillation (HC) Anticoagulation monitoring, INR range 2-3 SCAN CORRESP-EKG KETLVSB9501/11/2025 12:00 AM DIESEL TRACTOR OPERATOR SCAN CORRESP-LABORATORY TQAQYIH9701/11/2025 12:00 AM DIESEL TRACTOR OPERATOR SCAN-ELECTROCARDIOGRAM EKG103/04/2024 12:00 AM CSTSCAN-ELECTROCARDIOGRAM EKG 01/02/2025 12:00 AM CSTSCAN-LABORATORY POTBEJ2801/02/2025 12:00 AM DIESEL TRACTOR OPERATOR SCAN-LABORATORY HGQIUH6201/02/2025 12:00 AM DIESEL TRACTOR OPERATOR SCAN-RADIOLOGY GAYBES7501/02/2025 12:00 AM DIESEL TRACTOR OPERATOR SCAN-RADIOLOGY HDRXTW5301/02/2025 12:00 AM DIESEL TRACTOR OPERATOR XR DXA BONE DENSITY 2 SITES ZLOWBFjulfir77/05/2025 11:16 AM DIESEL TRACTOR OPERATOR Menopause XR MAMMO GAURI BILAT PVIKGPFyhgqyc36/05/2025 11:04 AM DIESEL TRACTOR OPERATOR Visit for screening mammogram URINE ALBUMIN TO CREATININE RATIO, LTIXRJZmlnfai07/15/2025 2:30 PM CDT HTN (hypertension) Type 2 diabetes mellitus without complication, without long-term current use of insulin (HC) PROTIME-SISRfouazo19/15/2025 2:04 PM CDT Longstanding persistent atrial fibrillation (HC) Anticoagulation monitoring, INR range 2-3 CBC WITH AUTO AATBJTBVJMJHUlglrro74/15/2025 2:04 PM CDT Hyperlipidemia, unspecified hyperlipidemia type Permanent atrial fibrillation (HC) CBC WITH AUTO BSZZNMJDVWJPSbeqkdt28/15/2025 2:04 PM CDT Hyperlipidemia, unspecified hyperlipidemia type Permanent atrial fibrillation (HC) COMP METABOLIC YAMXNTpwwkmg76/15/2025 2:04 PM CDT HTN (hypertension) LIPID PANEL W REFLEX MEASURED IJAOtwhlwy75/15/2025 2:04 PM CDT Hyperlipidemia, unspecified hyperlipidemia type HEMOGLOBIN A1C MONITORING (POCT)Rlquvmt6012/09/2024 2:04 PM CDT Type 2 diabetes mellitus without complication, without long-term current use of insulin (HC) COLONOSCOPY JRSXEQULBOeviydg27/27/2025 8:37 AM DIESEL TRACTOR OPERATOR Screening for colon cancer CT CHEST SCREENING LOW DOSE WO SYWCXLQGWgnvlir50/06/2025 11:03 AM DIESEL TRACTOR OPERATOR Encounter for screening for lung cancer Personal history of nicotine dependence ANTI LALJkwlbzb15/31/2017 2:22 PM CDT Need for hepatitis C screening test from Last 3 Months or Most Recently Relevant to Health Maintenance Results * (ABNORMAL) PROTIME-INR [[id number]] - Standing Order (01/27/2025 2:39 PM DIESEL TRACTOR OPERATOR) Only the most recent of3 resultswithin the time period is included. ComponentValueRef RangeTest MethodAnalysis TimePerformed AtPathologist Signature INR1.7(H)<1. 10:49 PM [facility] EPIAFUA92.9(H)10.6 - 12.4 sec01/27/2025 10:49 PM [facility] CENTRAL LABORATORYSpecimen (Source)Anatomical Location / LateralityCollection Method / VolumeCollection TimeReceived TimeBloodBLOOD SPECIMEN / UnknownQuest Collect / Murggys7601/27/2025 2:39 PM CST01/27/2025 2:39 PM DIESEL TRACTOR OPERATOR Narrative [facility] - 01/27/2025 10:49 PM DIESEL TRACTOR OPERATOR Therapeutic Range 2.0-3.0 for most anticoagulated patients 2.5-3.5 or 4.0 for high risk patients The INR is only used for patients on stable oral anticoagulant therapy. It makes no significant contribution to the diagnosis or treatment of patients whose Protime is prolonged for other reasons. INR results are increased when heparin levels exceed 1.0 U/mL, which corresponds to an aPTT >125seconds if the patient is on UFH. Authorizing ProviderResult TypeResult StatusMarry Cobb MDHEMATOLOGYFinal ResultPerforming OrganizationAddressCity/State/ZIP CodePhone Number [facility] [address] [place] [address], * INR - POCT [[id number]] - Standing Order (01/19/2025 2:15 PM DIESEL TRACTOR OPERATOR)ComponentValue Ref RangeTest MethodAnalysis TimePerformed AtPathologist SignatureINRTNPratio 01/19/2025 3:46 PM [facility] UNABLE TO REPORT. Out of Range: stat venous INR obtained per protocol to verify result. PROTHROMBIN TLVNXAOOyry31/25/2025 3:46 PM [facility] Comment: UNABLE TO REPORT. Out of Range: stat venous INR obtained per protocol to verify result. Specimen (Source)Anatomical Location / LateralityCollection Method / Volume Collection TimeReceived TimeBloodBLOOD SPECIMEN / UnknownQuest Collect / Unknown 01/19/2025 2:15 PM CST01/19/2025 2:15 PM DIESEL TRACTOR OPERATOR Narrative Authorizing ProviderResult TypeResult StatusMarry Cobb MDLABORATORYFinal ResultPerforming OrganizationAddressCity/State/ZIP CodePhone Number [facility] [address] [place] [address], [place] [phone] [facility] [address] [place] [address], [place] [phone] * SCAN CORRESP-LABORATORY RESULTS (01/11/2025 12:00 AM DIESEL TRACTOR OPERATOR) Narrative Authorizing ProviderResult TypeResult StatusScannerOTHERFinal Result * SCAN CORRESP-EKG RESULTS (01/11/2025 12:00 AM DIESEL TRACTOR OPERATOR) Narrative Authorizing ProviderResult TypeResult StatusScannerOTHERFinal Result * SCAN-RADIOLOGY REPORT (01/02/2025 12:00 AM DIESEL TRACTOR OPERATOR) Only the most recent of2 resultswithin the time period is included. Anatomical RegionLateralityModalityOther Narrative Authorizing ProviderResult TypeResult StatusScannerOTHERFinal Result * SCAN-LABORATORY REPORT (01/02/2025 12:00 AM DIESEL TRACTOR OPERATOR) Only the most recent of2 resultswithin the time period is included. Narrative Authorizing ProviderResult TypeResult StatusScannerOTHERFinal Result * SCAN-ELECTROCARDIOGRAM EKG (01/02/2025 12:00 AM DIESEL TRACTOR OPERATOR) Only the most recent of2 resultswithin the time period is included. Narrative Authorizing ProviderResult TypeResult StatusScannerOTHERFinal Result * (ABNORMAL) XR DXA BONE DENSITY 2 SITES AXIAL (12/30/2024 11:16 AM DIESEL TRACTOR OPERATOR) Anatomical RegionLateralityModalitySpine, HIPS, HIPL, HIPROtherSpecimen (Source)Anatomical Location / LateralityCollection Method / VolumeCollection TimeReceived Time Impressions 01/06/2025 4:35 PM DIESEL TRACTOR OPERATOR Osteopenia. RECOMMENDATIONS: The National Osteoporosis Foundation recommends pharmacologic treatment for patients with T-scores of -2.5 or less, patients with prior history of fragility fractures, or patients with 10-year probability of greater than 3% at hips or greater than 20% of suffering major osteoporotic fractures. Recommend continued optimization of calcium and vitamin D intake through dietary means and/or supplementation and regular exercise. Consider pharmacologic therapy for osteopenia with increased fracture risk. Follow-up bone density reading in 2 years if therapy initiated to assess therapeutic efficacy. Saritha Kessler PA-C [facility] 01/06/2025 Narrative 01/06/2025 4:35 PM DIESEL TRACTOR OPERATOR For Patients: Results are automatically released to your [facility]) account once available, in compliance with federal regulations. This means that you may see your results before your provider has had a chance to review them. Please allow 2-3 business days for your provider to comment on the results. XR DXA Bone Mineral Density (BMD) EXAM LOCATION: [address] [address] PATIENT NAME: Nicky Nam DATE OF : 1950 EXAM DATE: 12/30/2024 REQUESTING PROVIDER: Marry Cobb MD GENDER AT : female HEIGHT: 5' 3 (12/09/2024) WEIGHT: ??195 lb 3.2 oz (12/09/2024) MENOPAUSAL STATUS: Postmenopausal RACE/ETHNICITY: White RISK FACTORS: Family History of Hip Fracture (parental) and White Race CURRENT MEDICATION FOR BONE LOSS: NONE INDICATION: Menopause COMPARISON DATE(S): 2018 DXA scans are compared to prior studies for a patient only when the two (or more) studies were performed on the same scanner. It is not possible to compare data generated on one scanner to data from another because there are not standards in DXA equipment. This applies even if the two scanners are made by the same scarfing machine operator. PROCEDURE: Dual-energy x-ray absorptiometry performed with routine technique. Reporting is completed in the form of a T-score. The T-score represents the standard deviation from peak bone mass based on young healthy adult. A Z-score is used for diagnosis in premenopausal women, and for men under the age of 50. FINDINGS: RESULT LUMBAR SPINE L1 - L4 BMD: 1.104 g/cm2 T-Score: - 0.7 Z-Score: + 0.2 Change from prior in 2018: ??Increase 0.9%. RESULTS FEMUR Left femoral neck BMD: 0.804 g/cm2 T-Score: - 1.7 Z-Score: - 0.3 Change from prior in 2018: ??Decrease 6.4%. Right femoral neck BMD: 0.822 g/cm2 T-Score: - 1.6 Z-Score: - 0.2 Change from prior in 2018: ??Decrease 3.9%. Left hip BMD: 0.795 g/cm2 T-Score: - 1.7 Z-Score: - 0.6 Change from prior in 2018: ??Decrease 3.3%. Right hip BMD: 0.775 g/cm2 T-Score: - 1.8 Z-Score: - 0.7 Change from prior in 2018: ??Decrease 6.6%. WHO criteria: Normal: T-score at or above -1 SD Osteopenia: T-score between -1.1 and -2.4 SD Osteoporosis: T-score at or below -2.5 SD FRAX RISK CALCULATION (USED FOR OSTEOPENIA ONLY): 10-year probability of major osteoporotic fracture: 17.9%. 10-year probability of hip fracture: 8.4%. Authorizing ProviderResult TypeResult StatusMarry Cobb MDDEXAFinal Result * XR MAMMO GAURI BILAT SCREEN (12/30/2024 11:04 AM DIESEL TRACTOR OPERATOR)Anatomical Region LateralityModalityBREASTS, Breast Left, Breast RightBilateralMammography Specimen (Source)Anatomical Location / LateralityCollection Method / Volume Collection TimeReceived Time Impressions 12/30/2024 1:39 PM DIESEL TRACTOR OPERATOR There is no radiographic evidence for malignancy. Recommend annual mammograms. MAMMOGRAM ASSESSMENT: ??ACR 1 Negative PATIENTS: You will also receive a letter with your examination results in an easy to read format. ??If you have questions about your results, please contact your referring provider. Narrative 12/30/2024 1:39 PM DIESEL TRACTOR OPERATOR For Patients: As a result of the Century Cures Act, medical imaging exams and procedure reports are released immediately into your electronic medical record. You may view this report before your referring provider. If you have questions, please contact your health care provider. XR MAMMO GAURI BILAT SCREEN [[id number]] CLINICAL HISTORY: ??This is an asymptomatic 74 y.o. patient. INDICATION FOR EXAM: Mammogram Screening. TECHNIQUE: CC and MLO views were obtained. ??This study was evaluated with the assistance of Computer-Aided Detection. Breast Tomosynthesis was used in interpretation. COMPARISON FILM: Yes 08/07/23 [facility] 07/11/22 [facility] FINDINGS: ??The breasts are heterogeneously dense, which may obscure small masses. There are no dominant masses, suspicious micro calcifications or areas of architectural distortion. Authorizing ProviderResult TypeResult StatusMarry Cobb MDMAMMOFinal Result * URINE ALBUMIN TO CREATININE RATIO, RANDOM (12/09/2024 2:30 PM CDT)Component ValueRef RangeTest MethodAnalysis TimePerformed AtPathologist SignatureALB RAND URINE<12.0mg/L1 12:11 AM [facility]-CENTRAL LABORATORYCREATININE,URINE1.22g/L1 12:11 AM [facility]-CENTRAL LABORATORYALBUMIN TO CREATININE RATIO,RAND UR12/10/2024 12:11 AM [facility] LABORATORY-CENTRAL LABORATORYComment:Urine Albumin below measurement range, unable to calculate.Specimen (Source)Anatomical Location / LateralityCollection Method / VolumeCollection TimeReceived Time UrineURINE SPECIMEN / UnknownNon-Blood / Fvoetos7812/09/2024 2:30 PM CDT 12/09/2024 3:13 PM CDT Narrative [facility] - 12/10/2024 12:11 AM CDT If Albumin to Creatinine Ratio is elevated, consider the following: ?? Elevations seen with incipient nephropathy associated ?? with diabetes mellitus or hypertension. Stress, exercise,hematuria, ?? and urinary tract infection may also produce elevated results. If clinically indicated, confirm with ?24 Hour Albumin to Creatinine Ratio. ?? Authorizing ProviderResult TypeResult StatusMeltarik Cobb MDURINEFinal ResultPerforming OrganizationAddressCity/State/ZIP CodePhone Number [facility] [address] [address], * (ABNORMAL) CBC WITH AUTO DIFFERENTIAL (12/09/2024 2:04 PM CDT)ComponentValue Ref RangeTest MethodAnalysis TimePerformed AtPathologist SignatureWHITE BLOOD CELL COUNT9.03.8 - 10.8 Thousand/uL12/10/2024 3:28 AM CDTQUEST DIAGNOSTICSRED BLOOD CELL COUNT4.983.80 - 5.10 Million/uL12/10/2024 3:28 AM CDTQUEST FXKDAHBULTXKYVQCRRWPH38.911.7 - 15.5 g/dL12/10/2024 3:28 AM CDTQUEST SFZLGLYNDDQMRBQPCSGUQ41.2(H)35.0 - 45.0 %12/10/2024 3:28 AM CDTQUEST KABLZLXMQJPQQF21.880.0 - 100.0 fL12/10/2024 3:28 AM CDTQUEST DIAGNOSTICSMCH 29.927.0 - 33.0 pg12/10/2024 3:28 AM CDTQUEST KVINJXQDCGQCXFR79.332.0 - 36.0 g/dL12/10/2024 3:28 AM CDTQUEST DIAGNOSTICSComment: For adults, a slight decrease in the calculated MCHC value (in the range of 30 to 32 g/dL) is most likely not clinically significant; however, it should be interpreted with caution in correlation with other red cell parameters and the patient's clinical condition. RDW14.111.0 - 15.0 %12/10/2024 3:28 AM CDTQUEST DIAGNOSTICSPLATELET EDGUU663798 - 400 Thousand/uL12/10/2024 3:28 AM CDTQUEST MTOEYIUKPESXJY76.07.5 - 12.5 fL 12/10/2024 3:28 AM CDTQUEST EGZPYFTQOSDCSTIGOCYKSZ26.1%12/10/2024 3:28 AM CDT [facility] XLQDDNIYRNJQEGRZWEGMQX38.5%12/10/2024 3:28 AM CDT[facility] FBGHQEEZO17.1%12/10/2024 3:28 AM CDTQUEST DIAGNOSTICSEOSINOPHILS2.3%12/10/2024 3:28 AM CDTQUEST DIAGNOSTICSBASOPHILS1.0%12/10/2024 3:28 AM CDT[facility] ABSOLUTE SEBXHNHBDMS66001998 - 7800 cells/uL12/10/2024 3:28 AM CDTQUEST DIAGNOSTICSABSOLUTE TZQARQHUUXA3853838 - 3900 cells/uL12/10/2024 3:28 AM CDT [facility] DIAGNOSTICSABSOLUTE MCGWRLVBL3131(H)200 - 950 cells/uL12/10/2024 3:28 AM CDTQUEST DIAGNOSTICSABSOLUTE RKHIMXGMOWH27324 - 500 cells/uL12/10/2024 3:28 AM CDTQUEST DIAGNOSTICSABSOLUTE CFXUFUYAY693 - 200 cells/uL12/10/2024 3:28 AM CDT [facility]AGNOSTICSSpecimen (Source)Anatomical Location / LateralityCollection Method / VolumeCollection TimeReceived TimeBloodBLOOD SPECIMEN / UnknownQuest Collect / Rsuhhzo8012/09/2024 2:04 PM CDT1 2:15 PM CDT Narrative [facility] - 12/10/2024 3:28 AM CDT FASTING:UNKNOWN FASTING: UNKNOWN Authorizing ProviderResult TypeResult StatusMarry Cobb MDHEMATOLOGYFinal ResultPerforming OrganizationAddressCity/State/ZIP CodePhone Number [facility] [address] [place] [address], * (ABNORMAL) LIPID PANEL W REFLEX MEASURED LDL (12/09/2024 2:04 PM CDT)Component ValueRef RangeTest MethodAnalysis TimePerformed AtPathologist Signature CHOLESTEROL, HGJFV104<200 mg/dL12/10/2024 3:37 AM CDT[facility] GUHPXUHEZRRIB943(H)<150 mg/dL12/10/2024 3:37 AM CDTQUEST DIAGNOSTICSComment: If a non-fasting specimen was collected, consider repeat triglyceride testing on a fasting specimen if clinically indicated. Humble et al. J. of Clin. Lipidol. 2015;9:129-169. HDL WTCQPHMELRD62(L)> OR = 50 mg/dL12/10/2024 3:37 AM CDTShiny Media DIAGNOSTICSNON HDL SVMJVTASVEN25<130 mg/dL (calc)12/10/2024 3:37 AM [facility] Comment: For patients with diabetes plus 1 major ASCVD risk factor, treating to a non-HDL-C goal of <100 mg/dL (LDL-C of <70 mg/dL) is considered a therapeutic option. CHOL/HDLC RATIO3.5<5.0 (calc)12/10/2024 3:37 AM [facility] LDL-JKKDNMVJUXE06zv/dL (calc)12/10/2024 3:37 AM FunzioTShiny Media DIAGNOSTICSComment: Reference range: <100 Desirable range <100 mg/dL for primary prevention; <70 mg/dL for patients with CHD or diabetic patients with > or = 2 CHD risk factors. LDL-C is now calculated using the Kodi calculation, which is a validated novel method providing better accuracy than the Friedewald equation in the estimation of LDL-C. Parag MERINO et al. JAHAIRA. 2013;310(19): 5581-3787 (http://education.Meedor/faq/FTV610) Specimen (Source)Anatomical Location / LateralityCollection Method / Volume Collection TimeReceived TimeBloodBLOOD SPECIMEN / UnknownQuest Collect / Unknown 12/09/2024 2:04 PM CDT1 2:16 PM CDT Narrative [facility] - 12/10/2024 3:37 AM CDT FASTING:UNKNOWN FASTING: UNKNOWN Authorizing ProviderResult TypeResult StatusMarry Cobb [facility]MONDHEMISTRYFinal ResultPerforming OrganizationAddressCity/State/ZIP CodePhone Number [facility] [address] [address], [place] [phone] * HEMOGLOBIN A1C MONITORING (POCT) (12/09/2024 2:04 PM CDT)ComponentValueRef RangeTest MethodAnalysis TimePerformed AtPathologist SignaturePOC HEMOGLOBIN A1C5.9<6.0 % OF TOTAL HGB1 2:49 PM [facility] Comment: Any point of care results exhibiting inconsistency with the patient's clinical status should be repeated using a different testing method. Specimen (Source)Anatomical Location / LateralityCollection Method / Volume Collection TimeReceived TimeBloodBLOOD SPECIMEN / UnknownQuest Collect / Unknown 12/09/2024 2:04 PM CDT1 2:16 PM CDT Narrative Authorizing ProviderResult TypeResult StatusMarry Cobb [facility] EDMONDHEMISTRYFinal ResultPerforming OrganizationAddressCity/State/ZIP CodePhone Number [facility] [address] [address], [place] [phone] [facility] [address] [place] [address], [place] [phone] * (ABNORMAL) COMP METABOLIC PANEL (12/09/2024 2:04 PM CDT)ComponentValueRef RangeTest MethodAnalysis TimePerformed AtPathologist ZyrwbtxknXOBCUU564431 - 146 mmol/L1 3:37 AM CDTQUEST DIAGNOSTICSPOTASSIUM4.63.5 - 5.3 mmol/L 12/10/2024 3:37 AM CDTQUEST HVLFIFASUVNFYNLXAPK09687 - 110 mmol/L1 3:37 AM CDTQUEST DIAGNOSTICSCARBON KYIUXNY3989 - 32 mmol/L1 3:37 AM CDTQUEST GAGQGXHXRBVHBVTJBQ456(H)65 - 99 mg/dL12/10/2024 3:37 AM CDTQUEST DIAGNOSTICSComment: ? Fasting reference interval For someone without known diabetes, a glucose value between 100 and 125 mg/dL is consistent with prediabetes and should be confirmed with a follow-up test. CALCIUM9.58.6 - 10.4 mg/dL12/10/2024 3:37 AM CDTQUEST DIAGNOSTICSCREATININE0.93 0.60 - 1.00 mg/dL12/10/2024 3:37 AM CDTQUEST DIAGNOSTICSBUN/CREATININE RATIO31 (H)6 - 22 (calc)12/10/2024 3:37 AM CDTQUEST RAXGKKRJBOFVUOH95> OR = 60 mL/min/1.85s59512/10/2024 3:37 AM CDTQUEST DIAGNOSTICSALBUMIN4.03.6 - 5.1 g/dL 12/10/2024 3:37 AM CDTQUEST DIAGNOSTICSPROTEIN, TOTAL7.36.1 - 8.1 g/dL12/10/2024 3:37 AM CDTQUEST DIAGNOSTICSBILIRUBIN, TOTAL0.40.2 - 1.2 mg/dL12/10/2024 3:37 AM CDTQUEST DIAGNOSTICSALKALINE CYVQDKCPFYY5844 - 153 U/L1 3:37 AM CDT [facility] SGUDTDCEXUHZQO176 - 29 U/L1 3:37 AM CDTQUEST JJUNOIOFQULGFY3542 - 35 U/L1 3:37 AM CDTQUEST DIAGNOSTICSUREA NITROGEN (BUN)29(H)7 - 25 mg/dL12/10/2024 3:37 AM CDTQUEST DIAGNOSTICSGLOBULIN3.31.9 - 3.7 g/dL (calc) 12/10/2024 3:37 AM CDTQUEST DIAGNOSTICSALBUMIN/GLOBULIN RATIO1.21.0 - 2.5 (calc) 12/10/2024 3:37 AM CDTQUEST DIAGNOSTICSSpecimen (Source)Anatomical Location / LateralityCollection Method / VolumeCollection TimeReceived TimeBloodBLOOD SPECIMEN / UnknownQuest Collect / Lkpydrr1012/09/2024 2:04 PM CDT1 2:16 PM CDT Narrative [facility] - 12/10/2024 3:37 AM CDT FASTING:UNKNOWN FASTING: UNKNOWN Authorizing ProviderResult TypeResult StatusMeltarik Cobb MDCHEMISTRYFinal ResultPerforming OrganizationAddressCity/State/ZIP CodePhone Number [facility] [address] [place] [address], [place] [phone] * SCAN-COLONOSCOPY (03/20/2024 12:00 AM DIESEL TRACTOR OPERATOR) Narrative Authorizing ProviderResult TypeResult StatusScannerOTHERFinal Result * CT CHEST SCREENING LOW DOSE WO CONTRAST (03/02/2024 11:03 AM DIESEL TRACTOR OPERATOR)Anatomical RegionLateralityModalityComputed TomographySpecimen (Source)Anatomical Location / LateralityCollection Method / VolumeCollection TimeReceived Time Impressions 03/03/2024 2:02 PM DIESEL TRACTOR OPERATOR Stable tiny bilateral pulmonary nodules measuring 4 mm or less. Also stable 6.5 mm nodule right upper lobe, 5/41. Small bilateral pleural effusions. Mediastinal and bilateral hilar adenopathy. LUNG-RADS CATEGORY: 2: Benign. RADIOLOGIST RECOMMENDATION: Continue annual screening with low-dose CT chest in 12 months. Dictated by: David Fajardo MD @03/02/2024 3:57:08 PM /sp Narrative 03/03/2024 2:02 PM DIESEL TRACTOR OPERATOR For Patients: As a result of the Cures Act, medical imaging exams and procedure reports are released immediately into your electronic medical record. ??You may view this report before your referring provider. ?? If you have questions, please contact your health care provider. CT CHEST SCREENING LOW-DOSE WITHOUT CONTRAST 03/02/2024 INDICATION: Lung cancer screening. History of smoking. High-risk patient with greater than 20 pack-year smoking history. TECHNIQUE: Low-dose lung cancer screening non-contrast CT chest. Dose reduction techniques were used. COMPARISON: 08/01/2022. FINDINGS: NODULES: Small bilateral pulmonary nodules are present, similar to the prior study, measuring 4 mm or less. Also stable 6.5 mm nodule right upper lobe, 5/41. LUNGS AND PLEURA: Emphysema. Bibasilar fibrosis. Small pleural effusions. MEDIASTINUM: Mildly prominent mediastinal and bilateral hilar lymph nodes. Vascular calcifications. CORONARY ARTERY CALCIFICATION: Present. LIMITED UPPER ABDOMEN: Unremarkable. MUSCULOSKELETAL: No fracture. Authorizing ProviderResult TypeResult StatusMarry Cobb MDCTFinal Result * (ABNORMAL) ANTI HCV [[id number]] (12/25/2016 2:22 PM CDT)ComponentValueRef Range Test MethodAnalysis TimePerformed AtPathologist SignatureHEPATITIS C ANTIBODY Equivocal(A)Non-Kcesqmdu75/01/2017 6:44 AM CDTALDUKE UNIVERSITY [facility]OSPITALCENTRAL LABORATORYSpecimen (Source)Anatomical Location / LateralityCollection Method / VolumeCollection TimeReceived TimeBloodBLOOD SPECIMEN / UnknownVenipuncture / Yzolyqa3012/25/2016 2:22 PM CDT1 2:22 PM CDT Narrative [facility] - 12/26/2016 6:44 AM CDT Equivocal; Reflexed to HCV RNA Quant (See separate report). Authorizing ProviderResult TypeResult StatusMeltarik Cobb MDSEND OUTSFinal ResultPerforming OrganizationAddressCity/State/ZIP CodePhone Number [facility] [address] [place] [address], from Last 3 Months or Most Recently Relevant to Health Maintenance Insurance Advance Directives * Full Code (Latest Code Status on File) Date ActivatedDate InactivatedComments04/16/2023 12:52 PM2 4:38 PM QuestionAnswerCommentsCode Status Discussion:* Reviewed Preferences * Full Code Date ActivatedDate InactivatedComments04/16/2023 12:52 04/16/2023 12:52 PM QuestionAnswerCommentsCode Status Discussion:* Reviewed Preferences * Full Code Date ActivatedDate InactivatedComments03/22/2020 3:31 PM03/22/2020 7:57 PMQuestion AnswerCommentsCode Status Discussion:* Not Discussed * Full Code Date ActivatedDate GwnpsontrnfCheltgko88/29/2008 10:27 AM02/04/2008 8:30 PM Care Teams Team MemberRelationshipSpecialtyStart DateEnd Date Marry Cobb MD [address] [facility] [address] PCP - GeneralFamily Elpfcxsz86/31/17 Kelechi Gong MD [address] [place] [address] Hrzpgcakri13/9/20
--- NOTE | 2025-02-13 09:53 | CRLHL7_ITS ---
For Patients: As a result of the Century Cures Act, medical imaging exams and procedure reports are released immediately into your electronic medical record. You may view this report before your referring provider. If you have questions, please contact your health care provider. INDICATION: Shortness of breath TECHNIQUE: Chest 1 views. COMPARISON: Chest radiograph 01/02/2025 FINDINGS: Cardiovasculature and mediastinum: Heart size is normal. Unremarkable mediastinum. Lungs and pleural spaces: Mild interstitial prominence. No pneumothorax or pleural effusion. Bones and soft tissues: No significant findings. IMPRESSION: Mild interstitial prominence, which may represent mild pulmonary edema or atypical infection, such as viral infection. Dictated by Lolita Joseph MD @ 02/13/2025 10:56:18 AM (Electronically Signed)
--- NOTE | 2025-02-13 09:58 | ED.ARRPALP ---
HPI - Arrhythmia/Palpitations General Chief Complaint: Arrhythmia/Palpitations <Leo Luna MD - Last Filed: 02/13/25 13:01> Stated Complaint: AFIB <Leo Luna MD - Last Filed: 02/13/25 13:01> Time Seen by Provider: 02/13/25 09:39 <Leo Luna MD - Last Filed: 02/13/25 13:01> History of Present Illness HPI narrative: Patient is a 74-year-old woman with a history of atrial fibrillation status post cardioversion on at least 2 occasions. He is chronically anticoagulated on Coumadin and her INR is pending. She began feeling short of breath and irregular pulse yesterday. She has had no fevers no chills no night sweats no chest pain no lower extremity edema no orthopnea no PND. Her symptoms of shortness of breath or consistent with previous episodes of atrial fibrillation which is confirmed on today's EKG. No other major complaints or concerns noted. <Leo Luna MD - Last Filed: 02/13/25 13:01> Related Data Home Medications: Home Medications ?Medication ?Instructions ?Recorded ?Confirmed albuterol sulfate 90 mcg/actuation 2 puff inhalation Q4H PRN wheezing 06/07/22 02/13/25 aerosol inhaler atorvastatin 80 mg tablet 80 mg PO HS 06/07/22 02/13/25 fluticasone 250 mcg-salmeterol 50 1 ea inhalation Q12H 01/04/23 02/13/25 mcg/dose blistr powdr for inhalation (Advair Diskus) gabapentin 300 mg capsule 300 mg PO 3XD 01/04/23 02/13/25 warfarin 2.5 mg tablet 2.5 mg PO .VERA,TU,WE,FR,SA 01/04/23 02/13/25 budesonide-formoterol HFA 160 1 inh inhalation BID PRN 02/13/25 02/13/25 mcg-4.5 mcg/actuation aerosol inhaler (Symbicort) Previous Rx's ?Medication ?Instructions ?Recorded digoxin 250 mcg (0.25 mg) tablet 125 mcg (1/2 x 250 mcg (0.25 mg)) 01/09/23 PO DAILY #30 tabs diltiazem HCl 240 mg 240 mg PO BID #60 caps 01/09/23 capsule,extended release 24 hr furosemide 40 mg tablet 80 mg (2 x 40 mg) PO DAILY@0800 01/09/23 #60 tabs metoprolol succinate 50 mg 50 mg PO BID #60 tabs 01/09/23 tablet,extended release 24 hr <Leo Luna MD - Last Filed: 02/13/25 13:01> Allergies/Adverse Reactions: Allergies Allergy/AdvReac Type Severity Reaction Status Date / Time No Known Drug Allergies Allergy Verified 02/13/25 09:42 <Leo Luna MD - Last Filed: 02/13/25 13:01> Review of Systems Status of ROS: Reports: 10 or more systems reviewed and unremarkable except as noted in History and below <Leo Luna MD - Last Filed: 02/13/25 13:01> [facility] Medical History: Medical History Shortness of breath ?R06.02 - Shortness of breath (ICD-10) Warfarin anticoagulation ?Z79.01 - detention (current) use of anticoagulants (ICD-10) Smokes tobacco daily ?F17.200 - Nicotine dependence, unspecified, uncomplicated (ICD-10) History of subarachnoid hemorrhage ?Z86.79 - Personal history of other diseases of the circulatory system (ICD-10) Hypertension ?I10 - Essential (primary) hypertension (ICD-10) <Leo Luna MD - Last Filed: 02/13/25 13:01> Surgical History: Surgical History History of total abdominal hysterectomy ?Z90.710 - Acquired absence of both cervix and uterus (ICD-10) S/P coil embolization of cerebral aneurysm ?Z98.890 - Other specified postprocedural states (ICD-10) <Leo Luna MD - Last Filed: 02/13/25 13:01> Social History: Social History What is your current living situation?: I presently have a place to live Problems where you live: no known problems Problems where you live details: None In the past 12 months, utilities in danger of being shut off: no In past 12 months, lack of transportation kept you from medical appts, meetings, work, or getting things needed for daily living: no In the past 12 mos, have been you worried that your food would run out before you had money to buy more?: never true In the past 12 mos, the food you bought just didn't last and you didn't have money to buy more?: never true Highest level of school completed/degree received: some college, no degree Smoking Status: Former smoker Second hand tobacco smoke exposure: Yes How often do you have a drink containing alcohol: 2-4 times a month How many standard drinks containing alcohol do you have on a typical day: 1 or 2 How often do you have six or more drinks on one occasion: Never AUDIT-C Alcohol total score: 2 Non-prescribed substance use: denies use Caffeine: Yes (Coffee) How often does anyone, including family, friends and others, physically hurt you: never How often does anyone, including family, friends and others, insult or talk down to you: never How often does anyone, including family, friends and others, threaten you with harm: never How often does anyone, including family, friends and others, scream or curse at you: never service: No <Leo Luna MD - Last Filed: 02/13/25 13:01> Exam Narrative: Exam Narrative: EXAM GENERAL: Patient appears comfortable and well. EYES: No scleral icterus. LYMPH: No supraclavicular or cervical lymphadenopathy. SKIN: Visible skin seen during exam normal or with benign process only. EXT: No dependent lower extremity pedal edema. HEART: Irregularly irregular rhythm with distant heart tones. LUNGS: Clear to auscultation bilaterally with no crackles or wheezes. ABD: Soft, non tender, non distended. PSYCH: Good eye contact, speech is not pressured. <Leo Luna MD - Last Filed: 02/13/25 13:01> Const: Vital Signs, click to edit/add: Vital Signs - 24 hr 02/13/25 09:42 02/13/25 10:02 02/13/25 10:12 Temperature 98.1 F Pulse Rate 103 H Pulse Rate [Pulse Oximeter] 97 Respiratory Rate 24 Blood Pressure Pulse Oximetry 91 84 L 85 L Oxygen Delivery Me thod Room Air Room Air Oxygen Flow Rate 2 02/13/25 10:15 02/13/25 10:22 02/13/25 10:30 Temperature Pulse Rate 91 98 90 Pulse Rate [Pulse Oximeter] Respiratory Rate Blood Pressure 133/76 Pulse Oximetry 90 89 89 Oxygen Delivery Me thod Oxygen Flow Rate 02/13/25 10:31 02/13/25 10:45 02/13/25 11:00 Temperature Pulse Rate 89 100 100 Pulse Rate [Pulse Oximeter] Respiratory Rate 24 Blood Pressure 125/64 Pulse Oximetry 89 88 90 Oxygen Delivery Me thod Oxygen Flow Rate 02/13/25 11:01 02/13/25 11:02 02/13/25 11:15 Temperature Pulse Rate 94 98 100 Pulse Rate [Pulse Oximeter] Respiratory Rate 26 H 20 29 H Blood Pressure 132/72 Pulse Oximetry 89 90 89 Oxygen Delivery Me thod Oxygen Flow Rate 02/13/25 11:30 02/13/25 11:32 02/13/25 11:45 Temperature Pulse Rate 97 98 100 Pulse Rate [Pulse Oximeter] Respiratory Rate 23 28 H 29 H Blood Pressure 142/81 H Pulse Oximetry 93 94 95 Oxygen Delivery Me thod Oxygen Flow Rate 02/13/25 11:55 02/13/25 11:57 02/13/25 12:00 Temperature Pulse Rate 109 H 93 102 H Pulse Rate [Pulse Oximeter] Respiratory Rate 28 H 26 H Blood Pressure 147/83 H 137/94 H Pulse Oximetry 96 96 86 L Oxygen Delivery Me thod Oxygen Flow Rate 02/13/25 12:02 02/13/25 12:06 02/13/25 12:12 Temperature Pulse Rate 87 86 85 Pulse Rate [Pulse Oximeter] Respiratory Rate 12 Blood Pressure 137/107 H 114/71 120/66 Pulse Oximetry 94 93 92 Oxygen Delivery Me thod Oxygen Flow Rate 02/13/25 12:15 02/13/25 12:17 02/13/25 12:18 Temperature Pulse Rate 85 85 Pulse Rate [Pulse Oximeter] Respiratory Rate 18 18 Blood Pressure 116/68 Pulse Oximetry 93 89 Oxygen Delivery Me thod Oxygen Flow Rate 02/13/25 12:22 02/13/25 12:26 02/13/25 12:30 Temperature Pulse Rate 85 83 84 Pulse Rate [Pulse Oximeter] Respiratory Rate 30 H 23 Blood Pressure 122/71 115/69 Pulse Oximetry 87 L 86 L 86 L Oxygen Delivery Me thod Oxygen Flow Rate 02/13/25 12:31 02/13/25 12:36 02/13/25 12:41 Temperature Pulse Rate 83 83 83 Pulse Rate [Pulse Oximeter] Respiratory Rate 23 19 21 Blood Pressure 119/71 125/70 126/67 Pulse Oximetry 86 L 86 L 85 L Oxygen Delivery Me thod Oxygen Flow Rate 02/13/25 12:45 02/13/25 12:47 02/13/25 12:51 Temperature Pulse Rate 86 83 84 Pulse Rate [Pulse Oximeter] Respiratory Rate 12 17 15 Blood Pressure 127/75 124/68 Pulse Oximetry 84 L 89 88 Oxygen Delivery Me thod Oxygen Flow Rate 02/13/25 12:56 Temperature Pulse Rate 84 Pulse Rate [Pulse Oximeter] Respiratory Rate 26 H Blood Pressure 127/68 Pulse Oximetry 85 L Oxygen Delivery Me thod Oxygen Flow Rate <Leo Luna MD - Last Filed: 02/13/25 13:01> Vital Signs, click to edit/add: Vital Signs - 24 hr 02/13/25 09:42 02/13/25 10:02 02/13/25 10:12 Temperature 98.1 F Pulse Rate 103 H Pulse Rate [Pulse Oximeter] 97 Respiratory Rate 24 Blood Pressure Pulse Oximetry 91 84 L 85 L Oxygen Delivery Me thod Room Air Room Air Oxygen Flow Rate 2 02/13/25 10:15 02/13/25 10:22 02/13/25 10:30 Temperature Pulse Rate 91 98 90 Pulse Rate [Pulse Oximeter] Respiratory Rate Blood Pressure 133/76 Pulse Oximetry 90 89 89 Oxygen Delivery Me thod Oxygen Flow Rate 02/13/25 10:31 02/13/25 10:45 02/13/25 11:00 Temperature Pulse Rate 89 100 100 Pulse Rate [Pulse Oximeter] Respiratory Rate 24 Blood Pressure 125/64 Pulse Oximetry 89 88 90 Oxygen Delivery Me thod Oxygen Flow Rate 02/13/25 11:01 02/13/25 11:02 02/13/25 11:15 Temperature Pulse Rate 94 98 100 Pulse Rate [Pulse Oximeter] Respiratory Rate 26 H 20 29 H Blood Pressure 132/72 Pulse Oximetry 89 90 89 Oxygen Delivery Me thod Oxygen Flow Rate 02/13/25 11:30 02/13/25 11:32 02/13/25 11:45 Temperature Pulse Rate 97 98 100 Pulse Rate [Pulse Oximeter] Respiratory Rate 23 28 H 29 H Blood Pressure 142/81 H Pulse Oximetry 93 94 95 Oxygen Delivery Me thod Oxygen Flow Rate 02/13/25 11:55 02/13/25 11:57 02/13/25 12:00 Temperature Pulse Rate 109 H 93 102 H Pulse Rate [Pulse Oximeter] Respiratory Rate 28 H 26 H Blood Pressure 147/83 H 137/94 H Pulse Oximetry 96 96 86 L Oxygen Delivery Me thod Oxygen Flow Rate 02/13/25 12:02 02/13/25 12:06 02/13/25 12:12 Temperature Pulse Rate 87 86 85 Pulse Rate [Pulse Oximeter] Respiratory Rate 12 Blood Pressure 137/107 H 114/71 120/66 Pulse Oximetry 94 93 92 Oxygen Delivery Me thod Oxygen Flow Rate 02/13/25 12:15 02/13/25 12:17 02/13/25 12:18 Temperature Pulse Rate 85 85 Pulse Rate [Pulse Oximeter] Respiratory Rate 18 18 Blood Pressure 116/68 Pulse Oximetry 93 89 Oxygen Delivery Me thod Oxygen Flow Rate 02/13/25 12:22 02/13/25 12:26 02/13/25 12:30 Temperature Pulse Rate 85 83 84 Pulse Rate [Pulse Oximeter] Respiratory Rate 30 H 23 Blood Pressure 122/71 115/69 Pulse Oximetry 87 L 86 L 86 L Oxygen Delivery Me thod Oxygen Flow Rate 02/13/25 12:31 02/13/25 12:36 02/13/25 12:41 Temperature Pulse Rate 83 83 83 Pulse Rate [Pulse Oximeter] Respiratory Rate 23 19 21 Blood Pressure 119/71 125/70 126/67 Pulse Oximetry 86 L 86 L 85 L Oxygen Delivery Me thod Oxygen Flow Rate 02/13/25 12:45 02/13/25 12:47 02/13/25 12:51 Temperature Pulse Rate 86 83 84 Pulse Rate [Pulse Oximeter] Respiratory Rate 12 17 15 Blood Pressure 127/75 124/68 Pulse Oximetry 84 L 89 88 Oxygen Delivery Me thod Oxygen Flow Rate 02/13/25 12:56 Temperature Pulse Rate 84 Pulse Rate [Pulse Oximeter] Respiratory Rate 26 H Blood Pressure 127/68 Pulse Oximetry 85 L Oxygen Delivery Me thod Oxygen Flow Rate Sheila Faith MD - Last Filed: 02/13/25 12:21> Course Course ED Course: Patient seen examined. Troponin CBC comprehensive metabolic panel chest x-ray pending. <Leo Luna MD - Last Filed: 02/13/25 13:01> Vital Signs Vital signs: Initial Vital Signs Temperature 98.1 F 02/13/25 09:42 Temperature Source Temporal Artery Scan 02/13/25 09:42 Pulse Rate 97 02/13/25 09:42 Pulse Rhythm Irregular 02/13/25 09:42 Respiratory Rate 24 02/13/25 09:42 Blood Pressure Position Semi-Fowlers 02/13/25 09:42 Pulse Oximetry 91 02/13/25 09:42 Oxygen Delivery Method Room Air 02/13/25 09:42 Vital Signs Temperature 98.1 F 02/13/25 09:42 Pulse Rate 97 02/13/25 09:42 Respiratory Rate 24 02/13/25 09:42 Pulse Oximetry 91 02/13/25 09:42 Oxygen Delivery Method Room Air 02/13/25 09:42 Temperature 98.1 F 02/13/25 09:42 Pulse Rate 84 02/13/25 12:56 Respiratory Rate 26 H 02/13/25 12:56 Blood Pressure 127/68 02/13/25 12:56 Pulse Oximetry 85 L 02/13/25 12:56 Oxygen Delivery Method Room Air 02/13/25 10:12 Oxygen Flow Rate 2 02/13/25 10:12 <Leo Luna MD - Last Filed: 02/13/25 13:01> Initial Vital Signs Temperature 98.1 F 02/13/25 09:42 Temperature Source Temporal Artery Scan 02/13/25 09:42 Pulse Rate 97 02/13/25 09:42 Pulse Rhythm Irregular 02/13/25 09:42 Respiratory Rate 24 02/13/25 09:42 Blood Pressure Position Semi-Fowlers 02/13/25 09:42 Pulse Oximetry 91 02/13/25 09:42 Oxygen Delivery Method Room Air 02/13/25 09:42 Vital Signs Temperature 98.1 F 02/13/25 09:42 Pulse Rate 97 02/13/25 09:42 Respiratory Rate 24 02/13/25 09:42 Pulse Oximetry 91 02/13/25 09:42 Oxygen Delivery Method Room Air 02/13/25 09:42 Temperature 98.1 F 02/13/25 09:42 Pulse Rate 84 02/13/25 12:56 Respiratory Rate 26 H 02/13/25 12:56 Blood Pressure 127/68 02/13/25 12:56 Pulse Oximetry 85 L 02/13/25 12:56 Oxygen Delivery Method Room Air 02/13/25 10:12 Oxygen Flow Rate 2 02/13/25 10:12 <Papo Faith MD - Last Filed: 02/13/25 12:21> MDM - Arrhythmia/Palpitations MDM Narrative Medical decision making narrative: Patient presents with the rate onset of atrial fibrillation which occurred yesterday. She now feels like she is short of breath. Chest x-ray shows mild pulmonary edema. Her labs are reassuring with the exception that her BNP is elevated roughly 2000. Patient underwent successful DC cardioversion here in the emergency room propofol fall sedation with 200 joule synchronized. She is now back in sinus rhythm. She remains hypoxic with oxygen needs of 2 L. At this time I do think it is best that she stay in the hospital with continued diuresis and telemetry. <Leo Luna MD - Last Filed: 02/13/25 13:01> Lab Data Labs: Lab Results 02/13/25 02/13/25 Range/Units 10:01 11:24 WBC 14.24 H (4.50-11.00) K/uL RBC 4.64 (4.00-5.20) m/uL Hgb 14.0 (12.0-16.0) gm/dL Hct 41.6 (33.0-51.0) % MCV 90 (80-100) fL MCH 30 (26-34) pg MCHC 34 (32-36) gm/dL RDW Coeff of Volodymyr 14.3 (11.5-15.5) % Plt Count 235 (140-440) K/uL Neut % (Auto) 78.3 H (42.0-72.0) % Lymph % (Auto) 9.0 L (20-44) % [place] % (Auto) 11.5 H (0.0-11.0) % Eos % (Auto) 0.5 (0.0-7.0) % Baso % (Auto) 0.4 (0.0-3.0) % Neut # (Auto) 11.10 H (1.7-7.0) K/uL Lymph # (Auto) 1.30 (0.90-2.90) K/uL [place] # (Auto) 1.60 H (0.00-0.90) K/UL Eos # (Auto) 0.10 (0.00-0.50) K/uL Baso # (Auto) 0.10 (0.00-0.30) K/uL Abs Immat Gran (auto) 0.00 (0.00-0.30) K/uL Imm/Tot Granulo (auto) 0.3 % INR 2.41 H (0.91-1.10) Sodium 135 (135-149) mmol/L Potassium 3.9 (3.6-5.1) mmol/L Chloride 102 (96-114) mmol/L Carbon Dioxide 24 (20-32) mmol/L Anion Gap 9 (7-15) mEq/L BUN 15 (7-30) mg/dL Creatinine 0.6 (0.5-1.5) mg/dL Estimated GFR 94 ml/min Glucose 159 H (60-115) mg/dL Calcium 8.9 (8.4-10.6) mg/dL Total Bilirubin 1.6 H (0.1-1.5) mg/dL AST 21 (12-35) U/L ALT 23 (4-35) U/L Alkaline Phosphatase 90 (40-150) U/L Troponin I < 0.01 (0.01-0.04) ng/mL NT-Pro-B Natriuret Pep 2010 H (See Note) pg/mL Total Protein 7.6 (6.0-8.3) g/dL Albumin 3.9 (3.3-5.0) g/dL SARS-CoV-2 (PCR) Negative SARS-CoV-2 (Negative) Influenza Type A (PCR) Negative PCR FLU A (Negative) Influenza Type B (PCR) Negative PCR FLU B (Negative) RSV (PCR) Negative PCR RSV (Negative) <Leo Luna MD - Last Filed: 02/13/25 13:01> Lab Results 02/13/25 02/13/25 Range/Units 10:01 11:24 WBC 14.24 H (4.50-11.00) K/uL RBC 4.64 (4.00-5.20) m/uL Hgb 14.0 (12.0-16.0) gm/dL Hct 41.6 (33.0-51.0) % MCV 90 (80-100) fL MCH 30 (26-34) pg MCHC 34 (32-36) gm/dL RDW Coeff of Volodymyr 14.3 (11.5-15.5) % Plt Count 235 (140-440) K/uL Neut % (Auto) 78.3 H (42.0-72.0) % Lymph % (Auto) 9.0 L (20-44) % [place] % (Auto) 11.5 H (0.0-11.0) % Eos % (Auto) 0.5 (0.0-7.0) % Baso % (Auto) 0.4 (0.0-3.0) % Neut # (Auto) 11.10 H (1.7-7.0) K/uL Lymph # (Auto) 1.30 (0.90-2.90) K/uL [place] # (Auto) 1.60 H (0.00-0.90) K/UL Eos # (Auto) 0.10 (0.00-0.50) K/uL Baso # (Auto) 0.10 (0.00-0.30) K/uL Abs Immat Gran (auto) 0.00 (0.00-0.30) K/uL Imm/Tot Granulo (auto) 0.3 % INR 2.41 H (0.91-1.10) Sodium 135 (135-149) mmol/L Potassium 3.9 (3.6-5.1) mmol/L Chloride 102 (96-114) mmol/L Carbon Dioxide 24 (20-32) mmol/L Anion Gap 9 (7-15) mEq/L BUN 15 (7-30) mg/dL Creatinine 0.6 (0.5-1.5) mg/dL Estimated GFR 94 ml/min Glucose 159 H (60-115) mg/dL Calcium 8.9 (8.4-10.6) mg/dL Total Bilirubin 1.6 H (0.1-1.5) mg/dL AST 21 (12-35) U/L ALT 23 (4-35) U/L Alkaline Phosphatase 90 (40-150) U/L Troponin I < 0.01 (0.01-0.04) ng/mL NT-Pro-B Natriuret Pep 2010 H (See Note) pg/mL Total Protein 7.6 (6.0-8.3) g/dL Albumin 3.9 (3.3-5.0) g/dL SARS-CoV-2 (PCR) Negative SARS-CoV-2 (Negative) Influenza Type A (PCR) Negative PCR FLU A (Negative) Influenza Type B (PCR) Negative PCR FLU B (Negative) RSV (PCR) Negative PCR RSV (Negative) <Papo Faith MD - Last Filed: 02/13/25 12:21> Discharge Plan Discharge Clinical Impression: Atrial fibrillation <Leo Luna MD - Last Filed: 02/13/25 13:01> Patient Disposition: Admitted As Observation <Leo Luna MD - Last Filed: 02/13/25 13:01> Condition: Stable <Leo Luna MD - Last Filed: 02/13/25 13:01> Activity Level: No Restrictions <Leo Luna MD - Last Filed: 02/13/25 13:01> No Restrictions <Papo Faith MD - Last Filed: 02/13/25 12:21> Discharge Diet: Regular <Leo Luna MD - Last Filed: 02/13/25 13:01> Regular <Papo Faith MD - Last Filed: 02/13/25 12:21> Procedures Procedural Sedation Pre procedure diagnosis: Atrial fibrillation, CHF <Papo Faith MD - Last Filed: 02/13/25 12:21> Post procedure diagnosis: Sinus rhythm <Papo Faith MD - Last Filed: 02/13/25 12:21> Written consent by: patient <Papo Faith MD - Last Filed: 02/13/25 12:21> Verification/time out: correct patient, correct site, correct procedure and time out performed <Papo Faith MD - Last Filed: 02/13/25 12:21> Sedation provider same as procedural provider: No <Papo Faith MD - Last Filed: 02/13/25 12:21> Assistants, if any: Dr. Faith perform procedural sedation <Papo Faith MD - Last Filed: 02/13/25 12:21> Assistants, if any: Dr. Luna performed cardioversion <Papo Faith MD - Last Filed: 02/13/25 12:21> Indication: other (Electrical cardioversion) <Papo Faith MD - Last Filed: 02/13/25 12:21> ASA Class: II <Papo Faith MD - Last Filed: 02/13/25 12:21> Time of Last PO Intake: 08:00 <Papo Faith MD - Last Filed: 02/13/25 12:21> Mallampati classification: III. soft palate and base of uvula visible <Papo Faith MD - Last Filed: 02/13/25 12:21> Preparation: cardiac technologist applied, pulse oximeter, capnometry used, supplemental O2 applied, reversal agents at bedside and IV secured <Papo Faith MD - Last Filed: 02/13/25 12:21> IV Propofol dose (mg): 80 <Papo Faith MD - Last Filed: 02/13/25 12:21> Patient Tolerated Procedure: well and no complications <Papo Faith MD - Last Filed: 02/13/25 12:21> Complications: none <Papo Faith MD - Last Filed: 02/13/25 12:21> Additional Comments: Patient recovered well after sedation. Total anesthesia time was 6 minutes. No apnea, hypoxia, vomiting, aspiration, hypotension, or other complication. <Papo Faith MD - Last Filed: 02/13/25 12:21>
[2025-02-13 10:08] LABS: Hematocrit* 41.6 % (33.0-51.0); Hemoglobin* 14.0 gm/dL (12.0-16.0); Immature Granulocytes Abs Auto 0.00 K/uL (0.00-0.30); Immature Granulocytes Pct Auto 0.3 %; Lymphocytes Absolute Auto 1.30 K/uL (0.90-2.90); Mean Corpuscular HGB Conc 34 gm/dL (32-36); Mean Corpuscular Hemoglobin 30 pg (26-34); Mean Corpuscular Volume 90 fL (80-100); RDW Coefficient of Variation % 14.3 % (11.5-15.5); Red Blood Count* 4.64 m/uL (4.00-5.20); Slide Review Reflex No; White Blood Count* 14.24 K/uL (4.50-11.00)
[2025-02-13 10:22] LABS: Albumin* 3.9 g/dL (3.3-5.0); Chloride* 102 mmol/L (96-114); Potassium* 3.9 mmol/L (3.6-5.1); Sodium* 135 mmol/L (135-149)
[2025-02-13 10:25] LABS: Alanine Aminotransferase* 23 U/L (4-35); Alkaline Phosphatase* 90 U/L (40-150); Anion Gap 9 mEq/L (7-15); Aspartate Amino Transferase* 21 U/L (12-35); Bilirubin Total* 1.6 mg/dL (0.1-1.5); Blood Urea Nitrogen* 15 mg/dL (7-30); Carbon Dioxide* 24 mmol/L (20-32); Creatinine* 0.6 mg/dL (0.5-1.5); Estimated Glomerular Filt Rate 94 ml/min; Total Protein* 7.6 g/dL (6.0-8.3)
[2025-02-13 10:26] LABS: Calcium* 8.9 mg/dL (8.4-10.6); Glucose* 159 mg/dL (60-115); INR 2.41 (0.91-1.10); Prothrombin Time 27.4 Seconds
[2025-02-13 11:24] LABS: NT Pro B Type NatriureticPept* 2010 pg/mL (See Note)
[2025-02-13] MEDS: PROPOFOL 10 MG/ML INJ 80 MG IVP (11:58)
[2025-02-13 12:11] LABS: PCR FLU A Negative PCR FLU A (Negative); PCR FLU B Negative PCR FLU B (Negative); PCR RSV Negative PCR RSV (Negative); SARS PCR* Negative SARS-CoV-2 (Negative)
--- NOTE | 2025-02-13 12:18 | RESP.RT ---
Monitored airway for cardioversion procedure. prior oxygenated, End tidal initially 30 after procedure 28 Pt alert and orientated after recovery. See nursing note for vitals.
--- NOTE | 2025-02-13 13:38 | PM.IMHP1 ---
Assessment and Plan Assessment and plan (1) Acute heart failure with preserved ejection fraction (HFpEF): Problem comment: -acute exacerbation of known chronic HFpEF -iv diuresis -currently oxygen dependent -no obvious infection -CT ordered -BNP elevated -chest x-ray shows vascular congestion -mildly alkalotic Status: Acute (2) Acute hypoxemic respiratory failure: Problem comment: d/t acute CHF d/t AFIB, sensitive to loss of atrial kick. oxygen 1-2 L per NC to keep sats 90% Status: Acute (3) Atrial fibrillation: Problem comment: PAF dc cardioverted in the ED 02/13/25 on OAC now in sinus echo last done in 06/19 Continue current meds Status: Acute (4) Warfarin anticoagulation: Problem comment: -initiated for AFib in 2019 -monitor daily INR Status: Acute (5) COPD (chronic obstructive pulmonary disease): Problem comment: home symbicort will have RT see nebs prn no apparent acute exacerbation Status: Acute (6) Hypertension: Status: Acute (7) Former smoker: Problem comment: quit 2022 Status: Acute Hospitalist- H&P: HPI History of Present Illness Date Seen: 02/13/25 Chief complaint: AFIB Narrative: ADMISSION HISTORY AND PHYSICAL - HOSPITALIST Chief Complaint: Shortness of breath, irregular heartbeat HPI: Nicky is a 74-year-old who has a known history of COPD, non oxygen dependent and history of HFpEF. She has known atrial fibrillation, paroxysmal. She takes warfarin, metoprolol and diltiazem. Her EF was last measured in May of 2024 and it was normal. Typically she is in sinus but when she flipped into AFib she states they can make her very short of breath difficult to do activities of daily living. Sometime she spontaneously convert previously she has been DC cardioverted. Today she presented to the ER with increasing shortness of breath and palpitations. She was noted to be in AFib but rate controlled. Missing this atrial kick and showing evidence of vascular congestion she was DC cardioverted in the ED. ultimately she was still hypoxic and short of breath despite being in sinus. We felt this most likely represented a mild to moderate exacerbation of her known heart failure with preserved ejection fraction. Her troponin was negative. Her imaging consistent with vascular congestion. ER COURSE: DC cardioverted Labs, chest x-ray CODE STATUS: FULL CODE PCP: Marry Cobb MD EMERGENCY CONTACT PLAN: Sister, Annel. I've updated the PFSH, medications and allergies in the [facility] tabs. INVESTIGATIONS: LABS/MICRO/ECG/IMAGING Afebrile pulse 103 to 109. Irregularly irregular initially. Now 80s and regular. Blood pressure systolic has been 140s, 130s Diastolic 80s to 90s Mild respiratory distress with tachypnea in the high 20s Pulse ox on room air mid 80s CBC reflects a mildly elevated white blood cell count of 14.2. Hemoglobin 14, platelet count 235 INR 2.4 Normal electrolytes, normal renal function. Glucose 159. Mildly elevated total bili at 1.6, normal LFTs. Troponin is undetectable. BNP 2000. Has been as elevated as 5300 and as low as 1200 Digoxin is pending Echo 06/19 Final Impressions: 1. Normal left ventricular size, normal wall thickness, normal global systolic function, calculated EF of 76 %. 2. Right ventricular cavity size is normal, global systolic RV function is normal. 3. Biatrial enlargement. 4. The aortic valve is sclerotic and trileaflet, no stenosis and trivial regurgitation. 5. MAC present, mitral valve is sclerotic, MG 10mmHg at HR ~80bpm, mild regurgitation. Comparison Compared to prior exam of 04/16/23, there has been no significant change. One-view chest x-ray Mild interstitial prominence, which may represent mild pulmonary edema or atypical infection, such as viral infection. REVIEW OF SYSTEMS: 12-point ROS completed with patient and negative unless otherwise stated in HPI or below. PHYSICAL EXAM: CONSTITUTIONAL: Conversive with short sentences., good historian. A/O. Knows setting and context. GENERAL: Well nourished. No respiratory distress. Speaks in full sentences. VITAL SIGNS: see record. HEENT: Sclerae are anicteric. No petechiae. CARDIAC: rhythm is regular. There is no S3 or rub. No harsh murmurs. Extremities show 1+ edema with symmetrical pulses. NEURO: Speech is fluent. A brief neurologic exam is negative. SKIN: No rashes, petechiae, concerning changes PSYCHIATRIC: Euthymic. ADMIT TO MEDSURG: FLOOR CARE DVT: Continue warfarin GI: PO intake Time spent: Today I spent 75 minutes seeing the patient, discussing the patient with ER staff, reviewing [facility] and [facility] notes/diagnostics, discussing the care plan with our care time that includes social work, PT/OT, pharmacy, RT, usp and documenting my impressions and plan in the medical record. Medical Decision Making Medical Decision Making Has patient completed a Health Care Directive: No [facility] Medical History (Updated 02/13/25 @ 14:58 by Alejandrina Stewart MD) Warfarin anticoagulation ?Z79.01 - FPC (current) use of anticoagulants (ICD-10) Smokes tobacco daily ?F17.200 - Nicotine dependence, unspecified, uncomplicated (ICD-10) History of subarachnoid hemorrhage ?Z86.79 - Personal history of other diseases of the circulatory system (ICD-10) Hypertension ?I10 - Essential (primary) hypertension (ICD-10) Surgical History History of total abdominal hysterectomy ?Z90.710 - Acquired absence of both cervix and uterus (ICD-10) S/P coil embolization of cerebral aneurysm ?Z98.890 - Other specified postprocedural states (ICD-10) Social History What is your current living situation?: I presently have a place to live Problems where you live: no known problems Problems where you live details: None In the past 12 months, utilities in danger of being shut off: no In past 12 months, lack of transportation kept you from medical appts, meetings, work, or getting things needed for daily living: no In the past 12 mos, have been you worried that your food would run out before you had money to buy more?: never true In the past 12 mos, the food you bought just didn't last and you didn't have money to buy more?: never true Highest level of school completed/degree received: some college, no degree Smoking Status: Former smoker Second hand tobacco smoke exposure: Yes How often do you have a drink containing alcohol: 2-4 times a month How many standard drinks containing alcohol do you have on a typical day: 1 or 2 How often do you have six or more drinks on one occasion: Never AUDIT-C Alcohol total score: 2 Non-prescribed substance use: denies use Caffeine: Yes (Coffee) How often does anyone, including family, friends and others, physically hurt you: never How often does anyone, including family, friends and others, insult or talk down to you: never How often does anyone, including family, friends and others, threaten you with harm: never How often does anyone, including family, friends and others, scream or curse at you: never service: No Meds Home Medications and Allergies Home Medications ?Medication ?Instructions ?Recorded ?Confirmed ?Type albuterol sulfate 90 mcg/actuation 2 puff inhalation Q4H PRN wheezing 06/07/22 02/13/25 History aerosol inhaler atorvastatin 80 mg tablet 80 mg PO HS 06/07/22 02/13/25 History gabapentin 300 mg capsule 300 mg PO TID 01/04/23 02/13/25 History warfarin 2.5 mg tablet 2.5 mg PO .ud 01/04/23 02/13/25 History diltiazem HCl 240 mg 240 mg PO BID #60 caps 01/09/23 02/13/25 Rx capsule,extended release 24 hr metoprolol succinate 50 mg 50 mg PO BID #60 tabs 01/09/23 02/13/25 Rx tablet,extended release 24 hr budesonide-formoterol HFA 160 2 inh inhalation BID 02/13/25 02/13/25 History mcg-4.5 mcg/actuation aerosol inhaler (Symbicort) digoxin 125 mcg (0.125 mg) tablet 125 mcg PO DAILY 02/13/25 02/13/25 History furosemide 20 mg tablet 40 mg PO DAILY 02/13/25 02/13/25 History Allergies Allergy/AdvReac Type Severity Reaction Status Date / Time No Known Drug Allergies Allergy Verified 02/13/25 09:42 Exam Const: Vital Signs, click to edit/add: Vital Signs - 24 hr 02/13/25 09:42 02/13/25 10:02 02/13/25 10:12 Temperature 98.1 F Pulse Rate 103 H Pulse Rate [Pulse Oximeter] 97 Respiratory Rate 24 Blood Pressure Pulse Oximetry 91 84 L 85 L Oxygen Delivery Me thod Room Air Room Air Oxygen Flow Rate 2 02/13/25 10:15 02/13/25 10:22 02/13/25 10:30 Temperature Pulse Rate 91 98 90 Pulse Rate [Pulse Oximeter] Respiratory Rate Blood Pressure 133/76 Pulse Oximetry 90 89 89 Oxygen Delivery Me thod Oxygen Flow Rate 02/13/25 10:31 02/13/25 10:45 02/13/25 11:00 Temperature Pulse Rate 89 100 100 Pulse Rate [Pulse Oximeter] Respiratory Rate 24 Blood Pressure 125/64 Pulse Oximetry 89 88 90 Oxygen Delivery Me thod Oxygen Flow Rate 02/13/25 11:01 02/13/25 11:02 02/13/25 11:15 Temperature Pulse Rate 94 98 100 Pulse Rate [Pulse Oximeter] Respiratory Rate 26 H 20 29 H Blood Pressure 132/72 Pulse Oximetry 89 90 89 Oxygen Delivery Me thod Oxygen Flow Rate 02/13/25 11:30 02/13/25 11:32 02/13/25 11:45 Temperature Pulse Rate 97 98 100 Pulse Rate [Pulse Oximeter] Respiratory Rate 23 28 H 29 H Blood Pressure 142/81 H Pulse Oximetry 93 94 95 Oxygen Delivery Me thod Oxygen Flow Rate 02/13/25 11:55 02/13/25 11:57 02/13/25 12:00 Temperature Pulse Rate 109 H 93 102 H Pulse Rate [Pulse Oximeter] Respiratory Rate 28 H 26 H Blood Pressure 147/83 H 137/94 H Pulse Oximetry 96 96 86 L Oxygen Delivery Me thod Oxygen Flow Rate 02/13/25 12:02 02/13/25 12:06 02/13/25 12:12 Temperature Pulse Rate 87 86 85 Pulse Rate [Pulse Oximeter] Respiratory Rate 12 Blood Pressure 137/107 H 114/71 120/66 Pulse Oximetry 94 93 92 Oxygen Delivery Me thod Oxygen Flow Rate 02/13/25 12:15 02/13/25 12:17 02/13/25 12:18 Temperature Pulse Rate 85 85 Pulse Rate [Pulse Oximeter] Respiratory Rate 18 18 Blood Pressure 116/68 Pulse Oximetry 93 89 Oxygen Delivery Me thod Oxygen Flow Rate 02/13/25 12:22 02/13/25 12:26 02/13/25 12:30 Temperature Pulse Rate 85 83 84 Pulse Rate [Pulse Oximeter] Respiratory Rate 30 H 23 Blood Pressure 122/71 115/69 Pulse Oximetry 87 L 86 L 86 L Oxygen Delivery Me thod Oxygen Flow Rate 02/13/25 12:31 02/13/25 12:36 02/13/25 12:41 Temperature Pulse Rate 83 83 83 Pulse Rate [Pulse Oximeter] Respiratory Rate 23 19 21 Blood Pressure 119/71 125/70 126/67 Pulse Oximetry 86 L 86 L 85 L Oxygen Delivery Me thod Oxygen Flow Rate 02/13/25 12:45 02/13/25 12:47 02/13/25 12:51 Temperature Pulse Rate 86 83 84 Pulse Rate [Pulse Oximeter] Respiratory Rate 12 17 15 Blood Pressure 127/75 124/68 Pulse Oximetry 84 L 89 88 Oxygen Delivery Me thod Oxygen Flow Rate 02/13/25 12:56 02/13/25 13:15 02/13/25 13:16 Temperature Pulse Rate 84 Pulse Rate [Pulse Oximeter] Respiratory Rate 26 H Blood Pressure 127/68 Pulse Oximetry 85 L 87 L 92 Oxygen Delivery Me thod Room Air Nasal Cannula Oxygen Flow Rate 2 02/13/25 13:29 02/13/25 13:29 Temperature 97.8 F 97.8 F Pulse Rate Pulse Rate [Pulse Oximeter] Respiratory Rate 22 22 Blood Pressure Pulse Oximetry 91 91 Oxygen Delivery Me thod Nasal Cannula Nasal Cannula Oxygen Flow Rate 2 Hospitalist - H&P: Result Labs Labs: Short CBC 02/13/25 Range/Units 10:01 WBC 14.24 H (4.50-11.00) K/uL Hgb 14.0 (12.0-16.0) gm/dL Hct 41.6 (33.0-51.0) % Plt Count 235 (140-440) K/uL BMP 02/13/25 10:01 Sodium 135 Potassium 3.9 Chloride 102 Carbon Dioxide 24 BUN 15 Creatinine 0.6 Glucose 159 H Calcium 8.9 Cardiac Enzymes 02/13/25 Range/Units 10:01 Troponin I < 0.01 (0.01-0.04) ng/mL Liver Function 02/13/25 Range/Units 10:01 Total Bilirubin 1.6 H (0.1-1.5) mg/dL AST 21 (12-35) U/L ALT 23 (4-35) U/L Alkaline Phosphatase 90 (40-150) U/L Albumin 3.9 (3.3-5.0) g/dL
[2025-02-13 13:52] LABS: HCO3 VBG 28 mmol/L (21-28); Lactate* 1.5 mmol/L (0.5-1.9); PCO2 VBG 37 mmHG (40-50); PO2 VBG 49.1 mmHG (25-47); pH VBG 7.486 (7.32-7.43)
[2025-02-13] MEDS: GABAPENTIN 300 MG CAPSULE PO ×2 (14:04→20:11)
[2025-02-13] MEDS: FUROSEMIDE 10 MG/ML inj 80 MG IVP (14:05)
[2025-02-13 14:06] LABS: Digoxin* 0.7 ng/mL (0.8-2.0)
--- NOTE | 2025-02-13 14:33 | PC.NURSE ---
end of shift/. pt is very pleasant. no pain at this time she is alert x4. Pt had a successful cardioversion here in the emergency room propofol fall sedation with 200 joule synchronized. She in sinus rhythm 1 st degree. she came up from ED on 2L nc. she has been on RA since admission. md is aware. she has been 88-93 %. when she is 88 she is TCDB and yoga breathing and her Sao2 does increase. LS are clear and diminished with some crackles in the bases. she is not SOB now. she can talk in normal sentences. SL is patent. left arm hurts from BP cuff so last bp was on Forearm per pt request
--- NOTE | 2025-02-13 14:51 | CRLHL7_ITS ---
For Patients: As a result of the Century Cures Act, medical imaging exams and procedure reports are released immediately into your electronic medical record. You may view this report before your referring provider. If you have questions, please contact your health care provider. INDICATION: Shortness breath. TECHNIQUE: Axial intravenously infused CT cuts were performed through the chest during the peak phase of pulmonary arterial contrast opacification with the infusion of 95 mL of Isovue 370 FINDINGS: There are no pulmonary emboli. There is no aortic aneurysm or dissection. There are small bilateral pleural effusion. There is mild patchy ground-glass opacity within both lungs with thickening of interlobular septa at the lung bases. These findings are nonspecific but suggest interstitial pulmonary edema. There is subcarinal lymphadenopathy measuring up to 3.9 x 3.3 cm. There is a right hilar lymph node measuring 2.8 x 1.8 cm. There are pretracheal lymph nodes measuring up to 2.1 x 1.6 cm. Prevascular lymph nodes measure up to 2.4 x 1.5 cm. There is no pericardial effusion. The thoracic inlet appears normal. The visualized liver, spleen, pancreas, adrenals upper poles of both kidneys appear normal. There are no lytic or sclerotic skeletal lesions. IMPRESSION: 1. Negative for pulmonary emboli. 2. Small bilateral effusions. 3. Patchy ground-glass opacity within both lungs with thickening of interlobular septi at the lung bases suspicious for pulmonary edema. 4. Mediastinal and right hilar lymphadenopathy. Please note that all CT scans at this facility use dose modulation, iterative reconstruction, and/or weight-based dosing when appropriate to reduce radiation dose to as low as reasonably achievable. Dictated by Alex Dubois MD @ 02/13/2025 4:53:17 PM (Electronically Signed)
[2025-02-13] MEDS: POTASSIUM BICARB 25 MEQ EFFERVESCENT TAB PO ×3 (15:28→18:34)
--- NOTE | 2025-02-13 16:20 | RESP.RT ---
Pt seen in ED for cardioversion Assessed at that time. BBS with some crackles in bases, otherwise good aeration, no wheezing. Pt with HX of COPD is not oxygen dependent. Pt admitted for diuresis. At this time nursing has weaned pt off oxygen. when she does desaturate, it rebounds with cough and or deep breathing. Continue with home COPD med regimine.
[2025-02-13] MEDS: WARFARIN 2.5 MG TABLET PO (17:01)
[2025-02-13] MEDS: FUROSEMIDE 10 MG/ML inj 40 MG IVP (18:34)
[2025-02-13] MEDS: SODIUM CHLORIDE 0.9 % (FLUSH) 10 ML SYRINGE 5 ML IVF ×2 (18:35→20:09)
[2025-02-13] MEDS: BUDESONIDE 0.5 MG/2ML NEB NEB (20:08)
[2025-02-13] MEDS: ATORVASTATIN CALCIUM 40 MG TABLET 80 MG PO (20:10)
[2025-02-13] MEDS: dilTIAZem 240 MG CAP (CD) PO (20:10)
[2025-02-13] MEDS: METOPROLOL SUCCINATE (XL) 50 MG TAB PO (20:11)
[2025-02-14] VITALS (7 sets, daily range): BP systolic 134–138; BP diastolic 71–80; PULSE 65–77; RESP 16–20; TEMP 36.4–36.7; O2SAT 89–92
[2025-02-14 06:17] LABS: HCO3 VBG 32 mmol/L (21-28); PCO2 VBG 44 mmHG (40-50); PO2 VBG 52.0 mmHG (25-47); pH VBG 7.473 (7.32-7.43)
[2025-02-14 06:28] LABS: Hematocrit* 40.9 % (33.0-51.0); Hemoglobin* 13.7 gm/dL (12.0-16.0); Mean Corpuscular HGB Conc 34 gm/dL (32-36); Mean Corpuscular Hemoglobin 30 pg (26-34); Mean Corpuscular Volume 91 fL (80-100); Red Blood Count* 4.51 m/uL (4.00-5.20); Slide Review Reflex No; White Blood Count* 11.10 K/uL (4.50-11.00)
[2025-02-14 06:34] LABS: Albumin* 3.9 g/dL (3.3-5.0); Chloride* 100 mmol/L (96-114); Sodium* 135 mmol/L (135-149)
[2025-02-14 06:35] LABS: Potassium* 4.2 mmol/L (3.6-5.1)
[2025-02-14 06:37] LABS: Alanine Aminotransferase* 18 U/L (4-35); Aspartate Amino Transferase* 24 U/L (12-35); Blood Urea Nitrogen* 21 mg/dL (7-30); Creatinine* 0.6 mg/dL (0.5-1.5); Est. Creatinine Clearance* 40.83; Estimated Glomerular Filt Rate 94 ml/min
[2025-02-14 06:38] LABS: Alkaline Phosphatase* 80 U/L (40-150); Anion Gap 4 mEq/L (7-15); Bilirubin Total* 1.4 mg/dL (0.1-1.5); Calcium* 9.0 mg/dL (8.4-10.6); Carbon Dioxide* 31 mmol/L (20-32); Glucose* 134 mg/dL (60-115); Total Protein* 7.6 g/dL (6.0-8.3)
[2025-02-14 06:51] LABS: INR 1.99 (0.91-1.10); Prothrombin Time 23.7 Seconds
--- NOTE | 2025-02-14 08:01 | PC.NURSE ---
Shift note ([id number]):?Patient pleasant,?alert?and oriented. Independent in?room. Denied SOB and discomfort.?O2 sats decreased to 86% on room air?while sleeping. O2 was applied via NC at 1LPM to maintain sats 89-92%.?
[2025-02-14] MEDS: GABAPENTIN 300 MG CAPSULE PO (08:35)
[2025-02-14] MEDS: DIGOXIN 125 MCG TABLET PO (08:35)
[2025-02-14] MEDS: BUDESONIDE 0.5 MG/2ML NEB NEB (08:35)
[2025-02-14] MEDS: METOPROLOL SUCCINATE (XL) 50 MG TAB PO (08:35)
[2025-02-14] MEDS: dilTIAZem 240 MG CAP (CD) PO (08:35)
[2025-02-14] MEDS: SODIUM CHLORIDE 0.9 % (FLUSH) 10 ML SYRINGE 5 ML IVF (08:36)
[2025-02-14] MEDS: FUROSEMIDE 10 MG/ML inj 40 MG IVP (09:24)
--- NOTE | 2025-02-14 10:38 | RESP.RT ---
Patient up in bed, breathing regular/easy on room air, SaO2 92%. Good moist loose cough for small amount roque secretions. BBS with fine crackles noted through out, base diminished slightly. Patient has good clear voice. Patient able to walk to bathroom with out assistance. Has home MDI.
--- NOTE | 2025-02-14 11:23 | P.DS_ITS ---
DS: Providers Provider Date Seen: 02/14/25 Date of admission: 02/13/25 13:13 Primary care physician: Marry Cobb MD Admitting Clinician: Alejandrina Stewart MD Consults: 02/13/25 13:40 Consult to Respiratory Therapy [CONS] Routine Comment: Reason(s) for RT Consult:: Consult Attending Physician on discharge: Alejandrina Stewart MD Date of Discharge: 02/14/25 DS: Diagnosis Discharge Diagnosis (1) Acute heart failure with preserved ejection fraction (HFpEF): Status: Acute Problem details: -acute exacerbation of known chronic HFpEF -iv diuresis effective, increasing her lasix daily to BID x 3 days -currently oxygen dependent - weaned to room air at discharge (2) Acute hypoxemic respiratory failure: Status: Acute Problem details: resolved; d/t acute CHF d/t AFIB, sensitive to loss of atrial kick. oxygen 1-2 L per NC to keep sats 90% (3) Atrial fibrillation: Status: Acute Problem details: PAF dc cardioverted in the ED 02/13/25 on OAC now in sinus echo last done in 06/19 Continue current meds (4) COPD (chronic obstructive pulmonary disease): Status: Acute Problem details: home symbicort no apparent acute exacerbation (5) Warfarin anticoagulation: Status: Acute Problem details: -initiated for AFib in 2019 -monitor daily INR (6) Hypertension: Status: Acute (7) Former smoker: Status: Acute Problem details: quit 2022 DS: Summary Hospital Course Hospital Course: HIGH YIELD CARE NOTES FOR FOLLOW-UP -Dr. Cobb can order updated echos, Zio patch and discuss with Cardiology if her PAF increases in frequency and burden -CHF exacerbation was mild, increased her Lasix to b.i.d. for 3 days with added potassium after her IV diuresis was complete -she would benefit from an outpatient sleep study BRIEF HOSPITAL COURSE: Patient was admitted overnight. She presented in AFib without RVR. However the loss of atrial kick subsequently tipped her into acute exacerbation of her known chronic heart failure with preserved EF. She was cardioverted in the ED without complication. She remained in sinus overnight. She was diuresed with IV furosemide. She responded quite well. She was walking the halls with RT, maintaining sats around 90% on room air. She was requesting discharge. I increased her Lasix for 3 days to 40 mg b.i.d.. DISCHARGE MEDICATIONS: See Reconciled list - SIGNIFICANT CHANGES: Adding a 2nd daily dose of Lasix for 3 days, potassium daily as well while on a b.i.d. regimen Specific instructions to the patient and follow-up are outlined below. REVIEW OF SYSTEMS No new chest pain or dyspnea Pain controlled No voiding difficulties Tolerating diet challenge PHYSICAL EXAM: CONSTITUTIONAL: Conversive, good historian. A/O. Knows setting and context. GENERAL: Well-developed, in no respiratory distress. VITAL SIGNS: see record. HEENT: Sclerae are anicteric. No petechiae. CARDIAC: rhythm is regular. There is no S3 or rub. No harsh murmurs. Extremities show trace edema with symmetrical pulses. PULM: good air entry with no wheeze. Faint crackles noted bilaterally NEURO: Speech is fluent. A brief neurologic exam is negative. SKIN: No rashes, petechiae, concerning changes PSYCHIATRIC: Euthymic. DISPOSITION: Home with sister Time spent on discharge 37 minutes. Status at Discharge Functional status at discharge: independent ambulation Overall status at discharge: patient is progressing back to baseline Time Spent with Patient Time attestation: Total time spent providing and/or coordinating discharge services: Time spent: Greater than 30 minutes Exam Const: Vital Signs, click to edit/add: Vital Signs - 24 hr 02/13/25 11:30 02/13/25 11:32 02/13/25 11:45 Temperature Pulse Rate 97 98 100 Pulse Rate [Left P ulse Oximeter] Respiratory Rate 23 28 H 29 H Blood Pressure 142/81 H Blood Pressure [Le ft Arm] Pulse Oximetry 93 94 95 Oxygen Delivery Me thod Oxygen Flow Rate 02/13/25 11:55 02/13/25 11:57 02/13/25 12:00 Temperature Pulse Rate 109 H 93 102 H Pulse Rate [Left P ulse Oximeter] Respiratory Rate 28 H 26 H Blood Pressure 147/83 H 137/94 H Blood Pressure [Le ft Arm] Pulse Oximetry 96 96 86 L Oxygen Delivery Me thod Oxygen Flow Rate 02/13/25 12:02 02/13/25 12:06 02/13/25 12:12 Temperature Pulse Rate 87 86 85 Pulse Rate [Left P ulse Oximeter] Respiratory Rate 12 Blood Pressure 137/107 H 114/71 120/66 Blood Pressure [Le ft Arm] Pulse Oximetry 94 93 92 Oxygen Delivery Me thod Oxygen Flow Rate 02/13/25 12:15 02/13/25 12:17 02/13/25 12:18 Temperature Pulse Rate 85 85 Pulse Rate [Left P ulse Oximeter] Respiratory Rate 18 18 Blood Pressure 116/68 Blood Pressure [Le ft Arm] Pulse Oximetry 93 89 Oxygen Delivery Me thod Oxygen Flow Rate 02/13/25 12:22 02/13/25 12:26 02/13/25 12:30 Temperature Pulse Rate 85 83 84 Pulse Rate [Left P ulse Oximeter] Respiratory Rate 30 H 23 Blood Pressure 122/71 115/69 Blood Pressure [Le ft Arm] Pulse Oximetry 87 L 86 L 86 L Oxygen Delivery Me thod Oxygen Flow Rate 02/13/25 12:31 02/13/25 12:36 02/13/25 12:41 Temperature Pulse Rate 83 83 83 Pulse Rate [Left P ulse Oximeter] Respiratory Rate 23 19 21 Blood Pressure 119/71 125/70 126/67 Blood Pressure [Le ft Arm] Pulse Oximetry 86 L 86 L 85 L Oxygen Delivery Me thod Oxygen Flow Rate 02/13/25 12:45 02/13/25 12:47 02/13/25 12:51 Temperature Pulse Rate 86 83 84 Pulse Rate [Left P ulse Oximeter] Respiratory Rate 12 17 15 Blood Pressure 127/75 124/68 Blood Pressure [Le ft Arm] Pulse Oximetry 84 L 89 88 Oxygen Delivery Me thod Oxygen Flow Rate 02/13/25 12:56 02/13/25 13:15 02/13/25 13:16 Temperature Pulse Rate 84 Pulse Rate [Left P ulse Oximeter] Respiratory Rate 26 H Blood Pressure 127/68 Blood Pressure [Le ft Arm] Pulse Oximetry 85 L 87 L 92 Oxygen Delivery Me thod Room Air Nasal Cannula Oxygen Flow Rate 2 02/13/25 13:29 02/13/25 13:29 02/13/25 13:40 Temperature 97.8 F 97.8 F Pulse Rate Pulse Rate [Left P ulse Oximeter] Respiratory Rate 22 22 22 Blood Pressure Blood Pressure [Le ft Arm] Pulse Oximetry 91 91 91 Oxygen Delivery Me thod Nasal Cannula Nasal Cannula Room Air Oxygen Flow Rate 2 02/13/25 13:45 02/13/25 13:45 02/13/25 13:45 Temperature 97.8 F Pulse Rate Pulse Rate [Left P ulse Oximeter] Respiratory Rate 22 22 Blood Pressure Blood Pressure [Le ft Arm] Pulse Oximetry 91 91 91 Oxygen Delivery Me thod Room Air Room Air Oxygen Flow Rate 02/13/25 14:23 02/13/25 15:00 02/13/25 16:25 Temperature Pulse Rate 84 Pulse Rate [Left P ulse Oximeter] Respiratory Rate 22 Blood Pressure Blood Pressure [Le ft Arm] Pulse Oximetry 92 Oxygen Delivery Me thod Room Air Oxygen Flow Rate 02/13/25 17:06 02/13/25 17:07 02/13/25 19:07 Temperature 99.3 F Pulse Rate Pulse Rate [Left P ulse Oximeter] 86 82 Respiratory Rate 22 18 18 Blood Pressure Blood Pressure [Le ft Arm] 157/74 H Pulse Oximetry 92 91 Oxygen Delivery Me thod Room Air Room Air Oxygen Flow Rate 02/13/25 22:10 02/14/25 03:48 02/14/25 07:14 Temperature 98.9 F 97.9 F Pulse Rate 65 Pulse Rate [Left P ulse Oximeter] 79 77 Respiratory Rate 18 20 Blood Pressure Blood Pressure [Le ft Arm] 131/72 137/77 Pulse Oximetry 90 92 Oxygen Delivery Me thod Room Air Nasal Cannula Oxygen Flow Rate 1 02/14/25 07:31 02/14/25 08:35 02/14/25 08:46 Temperature 98.0 F Pulse Rate 65 Pulse Rate [Left P ulse Oximeter] 67 67 Respiratory Rate 16 Blood Pressure Blood Pressure [Le ft Arm] 138/71 Pulse Oximetry 89 Oxygen Delivery Me thod Room Air Oxygen Flow Rate 02/14/25 10:32 02/14/25 10:36 Temperature 97.5 F L Pulse Rate Pulse Rate [Left P ulse Oximeter] 76 Respiratory Rate 18 20 Blood Pressure Blood Pressure [Le ft Arm] 134/80 Pulse Oximetry 90 92 Oxygen Delivery Me thod Room Air Room Air Oxygen Flow Rate DS: Data Data Completed and Pending Completed studies during hospitalization: Procedures Introduction of Other Gas into Respiratory Tract, Via Natural or Artificial Opening (01/04/23) Labs on day of discharge: Labs from last 24 hours 02/14/25 02/13/25 02/13/25 05:47 13:46 11:24 WBC 11.10 H RBC 4.51 Hgb 13.7 Hct 40.9 MCV 91 MCH 30 MCHC 34 Plt Count 237 INR 1.99 H VBG pH 7.473 H 7.486 H VBG pCO2 44 37 L VBG pO2 52.0 H 49.1 H VBG HCO3 32 H 28 Sodium 135 Potassium 4.2 Chloride 100 Carbon Dioxide 31 Anion Gap 4 L BUN 21 Creatinine 0.6 Estimated Creat Clear 40.83 Estimated GFR 94 Glucose 134 H Hemoglobin A1c 6.4 H Lactate 1.5 Calcium 9.0 Magnesium 1.6 Total Bilirubin 1.4 AST 24 ALT 18 Alkaline Phosphatase 80 C-Reactive Protein 21.1 H 21.0 H NT-Pro-B Natriuret Pep Total Protein 7.6 Albumin 3.9 TSH Digoxin SARS-CoV-2 (PCR) Negative SARS-CoV-2 Influenza Type A (PCR) Negative PCR FLU A Influenza Type B (PCR) Negative PCR FLU B RSV (PCR) Negative PCR RSV 02/13/25 10:01 WBC RBC Hgb Hct MCV MCH MCHC Plt Count INR VBG pH VBG pCO2 VBG pO2 VBG HCO3 Sodium Potassium Chloride Carbon Dioxide Anion Gap BUN Creatinine Estimated Creat Clear Estimated GFR Glucose Hemoglobin A1c Lactate Calcium Magnesium Total Bilirubin AST ALT Alkaline Phosphatase C-Reactive Protein NT-Pro-B Natriuret Pep 2010 H Total Protein Albumin TSH 2.290 Digoxin 0.7 L SARS-CoV-2 (PCR) Influenza Type A (PCR) Influenza Type B (PCR) RSV (PCR) Discharge Plan Discharge Disposition: Home w/ Parent or Adult Date of Admission: 02/13/25 13:13 Attending Provider on Discharge: Alejandrina Stewart Primary Care Provider: Marry Cobb Condition: Stable Anticipated Discharge Date/Time: 02/14/25 11:14 Discharge Medications: New potassium chloride 20 mEq tablet extended release 20 meq PO DAILY Qty: 7 0RF Rx Instructions: Take daily while taking the twice daily lasix Continued atorvastatin 80 mg tablet 80 mg PO HS albuterol sulfate 90 mcg/actuation HFA aerosol inhaler 2 puff INHALATION Q4H PRN (Reason: wheezing) gabapentin 300 mg capsule 300 mg PO TID warfarin 2.5 mg tablet 2.5 mg PO .ud Patient Comments: take 1/2 tablet (1.25mg) on Sat, and take 1 tablet (2.5mg) all other days Rx Instructions: take 1/2 tablet (1.25mg) on Sat, and take 1 tablet (2.5mg) all other days (01/20/25) diltiazem HCl 240 mg Capsule,Extended Release 24hr 240 mg PO BID Qty: 60 0RF metoprolol succinate 50 mg Tablet Extended Release 24 Hr 50 mg PO BID Qty: 60 0RF budesonide-formoterol [Symbicort] 160-4.5 mcg/actuation HFA aerosol inhaler 2 inh inhalation BID digoxin 125 mcg (0.125 mg) tablet 125 mcg PO DAILY Changed furosemide 20 mg tablet 40 mg PO Qty: 15 0RF Rx Instructions: take twice daily for three days, then resume once daily Discharge Orders: Discharge Order (Routine); Ordered 02/14/25 Ordered By: Alejandrina Stewart Patient Education: A-fib (Atrial Fibrillation) (ED) Additional Instructions: Increase your lasix to 40mg twice daily for 3 days Take potassium daily when your are taking the lasix twice daily Talk to Dr. Cobb at your next appt about a sleep study Activity Level: No Restrictions Discharge Diet: Regular Follow Up Appointments: Marry Cobb MD [Primary Care Provider, Family Practice] Referral Note: next available Forms: [email or web address] Info Instructions
--- NOTE | 2025-02-14 11:55 | PC.NURSE ---
Addendum entered by Mitali Peng RN 02/14/25 12:52: D/C note: pt education provided by RN on CHF, work note provided, tele d/c , and IV removed. Pt W/C out to personal vehicle by RN to be driven home by sister. Original Note: shift note: Pt is AOx4. Pt on continuous pulse ox, AMB w/ RN in hallway, O2 dropped below 89%, back up to > 90% at rest post-walk w/i 2 minutes. notified. Pt denies SOB, dizziness, & pain. Pt has mild bilateral LE edema; pt education done by RN on medications, mobility, S & S. Pt sister bedside w/ service dog & is supportive. Pt tolerating regular diet.
== END 2025-02-14 12:40 | disposition home or self-care (01) ==
LOC: ED 13:01 → MEDSURG 13:14
PROVIDERS: Admitting Provider Family Medicine; Emergency Provider Internal Medicine; PCP Family Medicine; Visit Provider Family Medicine
DX: I50.33 Acute on chronic diastolic (congestive) heart failure (principal); I48.91 Unspecified atrial fibrillation; Z99.81 Dependence on supplemental oxygen; J96.01 Acute respiratory failure with hypoxia; Z79.01 Long term (current) use of anticoagulants; J44.9 Chronic obstructive pulmonary disease, unspecified; Z87.891 Personal history of nicotine dependence; I10 Essential (primary) hypertension
CPT/HCPCS: 36415; 71045; 71275; 80053; 80162; 82803; 83036; 83605; 83735; 83880; 84443; 84484; 85025; 85027; 85610; 86140; 87631; 92960; 93005; 94761; 99156; 99283; 99285; A9270; G0378; J1938; J2704; Q9967